=== PATIENT | female | born 1945 | race Caucasian/White ===

== ENCOUNTER 2017-08-11 12:58 | Day surgery (SDC) | payer BC, MEDICARE ==
[2017-08-11 12:21] VITALS: BMI 48.6
[2017-08-11] MEDS ORDERED: Albumin 25% 200 ML ONE (13:41)
[2017-08-11 13:45] LABS: #Basophils 0.1 thou/uL (0.0-0.2); #Eosinphils 0.4 thou/uL (0.0-0.7); #Lymphocytes 1.3 thou/uL (1.20-3.40); #Monocytes 0.7 thou/uL (0.11-0.59); #Neutrophils 4.9 thou/uL (1.40-6.50); %Basophils 0.9 % (0.0-1.0); %Eosinophils 4.9 % (0.0-10.0); %Lymphocytes 17.7 % (21.0-51.0); %Monocytes 9.4 % (0.0-10.0); Hematocrit 26.9 % (36.0-47.0); Mean Platelet Volume 6.6 fL (7.4-10.4); Red Blood Cell (RBC) Count 2.52 mill/uL (4.20-5.40); White Blood Cell (WBC) Count 7.3 thou/uL (4.8-10.8)
[2017-08-11] MEDS ORDERED: FLU VACC TS2017-18 (>65YR) 0.5 ML SYRINGE IM ONE (13:45)
[2017-08-11 13:52] LABS: Prothrombin Time 17.1 SEC (12.0-14.7)
[2017-08-11 13:53] LABS: PTT 35.7 SEC (22.9-36.1)
[2017-08-11 14:02] LABS: Anisocytosis SLIGHT = 6-15 cells (100X) (0-5/hpf); Basophilic Stippling SLIGHT = 1-2 cells (100X) (None Seen); Macrocytosis SLIGHT = 6-15 cells (100X) (0-5/hpf); Polychromasia SLIGHT = 2-3 cells (100X) (0-2/hpf)
[2017-08-11 15:41] VITALS: BP 127/40; TEMP 97.5
--- NOTE | 2017-08-11 15:44 | ULT ---
ULTRASOUND GUIDED PARACENTESIS 08/11/17 COMPARISON: 04/01/17 HISTORY: Symptomatic ascites. FINDINGS: Informed consent obtained prior to the procedure. Preprocedural imaging demonstrates extensive ascite s throughout the abdomen/pelvis. Appropriate pocket is visualized within the right lower quadrant. Sk in overlying this region is prepped and draped in normal sterile fashion and then applied 1% buffered lidocaine. With direct sonographic guidance, a 5 Greek Yueh catheter is advanced into the ascites. Removal of t he stylet yields yellow fluid. 5 liters were removed. The patient tolerated the procedure well. IMPRESSION: Successful ultrasound guided paracentesis yielding 5 liters of yellow fluid. POS: [facility]
== END 2017-08-11 15:30 | disposition home or self-care (01) ==
LOC: ULT 12:58
PROVIDERS: ATTEND Internal Medicine Gastroenterology
PROC: 0W9G3ZX Drainage of Peritoneal Cavity, Percutaneous Approach, Diagnostic (ICD-10-PCS; principal; 2017-08-11)
DX: K74.60 Unspecified cirrhosis of liver (principal); R18.8 Other ascites; I42.9 Cardiomyopathy, unspecified; I10 Essential (primary) hypertension; J44.9 Chronic obstructive pulmonary disease, unspecified; Z79.899 Other long term (current) drug therapy; Z87.891 Personal history of nicotine dependence
CPT/HCPCS: 36415; 49083; 85025; 85610; 85730; P9047

== ENCOUNTER 2017-08-13 05:33 | Inpatient (IN) | payer BC, MEDICARE ==
[2017-08-13 06:06] LABS: #Eosinphils 0.2 thou/uL (0.0-0.7); #Lymphocytes 1.1 thou/uL (1.20-3.40); #Monocytes 0.5 thou/uL (0.11-0.59); #Neutrophils 4.3 thou/uL (1.40-6.50); %Basophils 0.6 % (0.0-1.0); %Eosinophils 3.4 % (0.0-10.0); %Lymphocytes 17.4 % (21.0-51.0); %Monocytes 8.3 % (0.0-10.0); Hematocrit 25.7 % (36.0-47.0); Mean Platelet Volume 7.2 fL (7.4-10.4); White Blood Cell (WBC) Count 6.1 thou/uL (4.8-10.8)
[2017-08-13 06:29] LABS: ALT (SGPT) 11 U/L (8-55); AST (SGOT) 34 U/L (5-34); Alkaline Phosphatase 129 U/L (40-150); Anion Gap 11 mmol/L (10-20); BUN (Urea Nitrogen) 47 mg/dL (9.8-20.1); Bilirubin, Total 2.3 mg/dL (0.2-1.2); Calc. Creatinine Clearance 0 mL/min (70-130); Calcium 8.8 mg/dL (7.8-10.44); Carbon Dioxide 24 mmol/L (23-31); Chloride 107 mmol/L (98-107); Estimated GFR-MDRD 19; Globulin 4.5 g/dL (2.4-3.5); Lipase 41 U/L (8-78); Protein, Total 7.1 g/dL (6.0-8.3)
[2017-08-13] MEDS ORDERED: Ondansetron HCl/PF 4 MG/2 ML Vial ONE (06:42)
[2017-08-13 06:55] LABS: PTT 36.8 SEC (22.9-36.1); Prothrombin Time 17.8 SEC (12.0-14.7)
[2017-08-13 07:07] LABS: Troponin I 0.011 ng/mL (< 0.028)
--- NOTE | 2017-08-13 08:50 | RAD ---
PORTABLE CHEST: Date: 08/13/17 HISTORY: Chest and abdomen pain. Altered mental status. COMPARISON: 01/31/17. FINDINGS: Heart size is borderline. There are atherosclerotic changes of the aorta. Lungs show some chronic luis a nge without focal infiltrates. IMPRESSION: Borderline cardiomegaly with chronic lung change. POS: [facility]
[2017-08-13] MEDS ORDERED: Heparin 1,000 UNITS/ML VIAL ONE (10:00)
[2017-08-13] MEDS ORDERED: Lidocaine 1% (PF) 30 ML VIAL ONE (11:20)
[2017-08-13 11:57] LABS: Bilirubin Negative (Negative); Blood, Urine Negative (Negative); Glucose, Urine (Dipstick) Negative (Negative); Ketone, Urine Negative (Negative); Nitrite Negative (Negative); Protein, Urine (Dipstick) Negative (Neg-Trace)
[2017-08-13] MEDS ORDERED: Morphine 4 MG/ML VIAL ONE (12:22)
[2017-08-13 12:27] LABS: BF Reference Range Comment Note:
[2017-08-13 13:09] LABS: BF Color Yellow
[2017-08-13 13:10] LABS: BF WBC/Nonhematics Ct. - Manua 13 /cumm
--- NOTE | 2017-08-13 13:26 | HP ---
HISTORY OF PRESENT ILLNESS: Mrs. Garcia is a 72 years old woman. She was brought to this [facility] earlier today because of altered mental status, confusion, agitation, and according to her da korihter, everything started about 2:00 a.m. this morning. There is no associated fever, and she claim s that patient has been vomiting since yesterday. She does not have any diarrhea. PAST MEDICAL HISTORY: She is known to have history of cirrhosis of liver secondary to fatty liver de generation. She is also known to have a history of hypertension, COPD. No history of diabetes. No history of heart disease. No history of cerebrovascular accident. PAST SURGICAL HISTORY: Remarkable for hysterectomy. She does not have any known allergies. SOCIAL HISTORY: She is a former smoker. She quit smoking about 4 years ago. There is no history of ETOH abuse. No history of substance abuse. FAMILY HISTORY: Reviewed and is not contributory. HOME MEDICATIONS: Reviewed and include tramadol, Aldactone, lactulose, Lasix. REVIEW OF SYSTEMS: Constitutional: There is no fever. HEENT: There was no prior headache, no ocul ar pain. No sore throat, no rhinorrhea, no earache, no epistaxis. Neck: No neck pain, no neck stif fness. Cardiovascular: No shortness of breath. No chest pain. Pulmonary: No coughing. Gastroint estinal: She has been vomiting since yesterday. There is no diarrhea. There was no abdominal pain. Genitourinary: Urine output has decreased and they mentioned some dysuria. Endocrinology: No hea t or cold intolerance. No polyuria, polydipsia, or polyphagia. Musculoskeletal: No arthralgia, no myalgia. Skin: No rash, no itching. Allergies: No hayfever. Hematology: No abnormal bleeding, n o ecchymosis. Lymphatics: No palpable lymphadenopathy, no painful lymphadenopathy. Psychiatric: N o anxiety, no depression. Neurologic: No seizure, no limb weakness. PHYSICAL EXAMINATION: At the current time, GENERAL: She is alert, responsive, confused, sick looking. VITAL SIGNS: Her latest vital signs show a blood pressure of 102/57, pulse rate 74, respiratory rate 19, temperature 97.3. We have to mention that earlier the patient was hypothermic and she was start ed on hypothermic blanket and also she was hypotensive. HEENT: Her head is normocephalic and atraumatic. Both her pupils are equal and reactive. She has i cteric discoloration of the sclerae. Ears and nose normal. Oral mucosa is moist. Pharyngeal area i s clear. NECK: Supple. There is no distention of the jugular vein. No lymphadenopathy felt. Thyroid gland not palpable. There is no carotid bruit. CHEST: Symmetrical with S1, S2. LUNGS: Clear. ABDOMEN: Somewhat tender to palpation. There is a shift in dullness. We could not appreciate any o rganomegaly. EXTREMITIES: Limbs show no edema. NEUROLOGIC: She moves all extremities. LABORATORY DATA: Chest x-ray was reported to show borderline cardiomegaly with chronic lung changes. CBC showed WBC of 6.1, hemoglobin of 8.1, hematocrit of 25.7, MCV of 107, platelets of 138. PT is 17.8, PTT 36.8. Chemistry and electrolytes show sodium of 137, potassium 5.3, chloride 107, CO2 of 2 4, BUN 47, creatinine 2.45, glucose 112, calcium 8.8, total bilirubin 2.3, AST 34, ALT 11, alkaline p hosphatase 129, ammonia 164, CPK 29, troponin 0.011. BNP 554.1, total protein 7.1, albumin 2.6, glob ulin 4.5, lipase 41. ASSESSMENT AND PLAN: This is a 72 years old woman with history of cirrhosis of the liver se condary to fatty liver, chronic obstructive pulmonary disease. She had paracentesis about 2 days ago . She was brought to this facility, because of confusion, agitation. We have also to mention that w e suspect hepatic encephalopathy. It is possible that the patient may have spontaneous bacterial per itonitis. In view of this case, we will check peritoneal fluid for Gram stain, cell count, and cultu re. We will start her on cefepime and vancomycin. She was noticed to have acute kidney injury. Paul stevenson reported that, in March, her creatinine was 0.8. It is possible that she may have acute tubular n ecrosis associated with low blood pressure. She may also have the hepatorenal syndrome. In any case , we will start her on octreotide, midodrine, and albumin. Nephrology consult was called. We will s tart her on broad-spectrum antibiotics for possible peritonitis. Blood culture and also urine cultur e will be sent. Patient will be admitted to medical ICU. Further evaluation and management will dep end on the course of her hospitalization and her response to therapy.
[2017-08-13] MEDS ORDERED: Albumin 25% 25 GM/100 ML BOT IVPB SCH (13:30)
[2017-08-13 13:37] LABS: #Eosinphils 0.1 thou/uL (0.0-0.7); #Lymphocytes 0.7 thou/uL (1.20-3.40); #Monocytes 0.4 thou/uL (0.11-0.59); %Basophils 0.6 % (0.0-1.0); %Eosinophils 3.3 % (0.0-10.0); %Lymphocytes 17.2 % (21.0-51.0); %Monocytes 8.9 % (0.0-10.0); Hematocrit 23.3 % (36.0-47.0); Mean Platelet Volume 6.8 fL (7.4-10.4); Red Blood Cell (RBC) Count 2.17 mill/uL (4.20-5.40); White Blood Cell (WBC) Count 4.3 thou/uL (4.8-10.8)
[2017-08-13 13:42] LABS: ALT (SGPT) 13 U/L (8-55); AST (SGOT) 40 U/L (5-34); Alkaline Phosphatase 107 U/L (40-150); Anion Gap 14 mmol/L (10-20); BUN (Urea Nitrogen) 49 mg/dL (9.8-20.1); Bilirubin, Total 2.4 mg/dL (0.2-1.2); Calc. Creatinine Clearance 41 mL/min (70-130); Calcium 8.1 mg/dL (7.8-10.44); Carbon Dioxide 21 mmol/L (23-31); Chloride 109 mmol/L (98-107); Estimated GFR-MDRD 22; Globulin 3.9 g/dL (2.4-3.5); Protein, Total 6.2 g/dL (6.0-8.3)
[2017-08-13 13:46] LABS: Prothrombin Time 18.1 SEC (12.0-14.7)
[2017-08-13] MEDS ORDERED: Octreotide Acetate 100 MCG/ML VIAL SC SCH (14:00)
[2017-08-13] MEDS ORDERED: Cefepime 1 GM, Admixture Fee 1 EACH in Sterile Water 10 ML SLOW IVP SCH (14:00)
[2017-08-13 14:55] LABS: Number Cells Counted-Fluids 100
[2017-08-13] MEDS: Midodrine HCl 5 MG TAB PO SCH ×2 (15:24→21:16)
[2017-08-13] MEDS: Sodium Chloride 0.9% 1,000 ML IV SCH ×3 (15:25→22:50)
--- NOTE | 2017-08-13 16:36 | CON ---
DATE OF CONSULTATION: 08/13/2017 HISTORY OF PRESENT ILLNESS: Ms. Garcia is a 72-year-old female who was brought in for acute mental status change. The feeling is that this patient may have hepatic encephalopathy due to her history of cirrhosis as well as elevated ammonia. We are now being consulted for acute kidney injury. Please note that during the last few days, her renal function was noted to be worsening and for that reason, diuretics have been placed on hold in the last couple of days. We are being consulted for further management of this acute kidney injury. REVIEW OF SYSTEMS: Not obtainable since the patient is confused. Per family, history of decreased appetite, decreased energy level. No nausea. No diarrhea. No syncopal episode. Positive for confusion. No fever or chills. No chest pain, no shortness of breath. No headache, no diplopia. No sore throat. HOME MEDICATIONS: Includes Tramadol 50 mg q.8 hours p.r.n., spironolactone 25 mg p.o. b.i.d., Protonix 40 mg daily, lactulose 20 grams p.o. b.i.d. and Lasix 20 mg b.i.d. CURRENT MEDICATIONS: Includes status post vancomycin, normal saline 150 mL per hour, octreotide 100 mcg subcu q.8 hours, midodrine 10 mg p.o. t.i.d., cefepime 1 gram IV q. day and salt poor albumin 25 grams IV q.6 hours. PAST MEDICAL HISTORY: Includes; 1. Cirrhosis secondary to a presumed fatty liver. 2. History of chronic ascites. 3. Hypertension. 4. COPD. PAST SURGICAL HISTORY: 1. Status post hysterectomy. 2. Status post multiple paracentesis. 3. Status post upper and lower GI endoscopy. 4. Status post ? of liver biopsy. SOCIAL HISTORY: The patient lives with her son. Smoked several years ago, but quit about 4 years ago. No alcohol intake, no IV drug abuse. Sedentary lifestyle. Status post ? of blood transfusion. ALLERGIES: The patient has no known drug allergies. TRAUMA: None. IMMUNIZATIONS: Up to date. HOSPITALIZATIONS: Please see past medical history. FAMILY HISTORY: Noncontributory. PHYSICAL EXAMINATION: GENERAL: Patient is awake, confused and disoriented, not in overt distress. VITAL SIGNS: Blood pressure is 73/64, heart rate 74, respiratory rate 22 and temperature 95. SKIN: Adequate turgor. HEENT: Slightly pale conjunctivae, anicteric sclerae. NECK: No neck mass, no carotid bruit, no JVD. CHEST: No deformities. LUNGS: Decreased breath sounds. No wheezing, no crackles. HEART: Normal sinus rhythm. No murmur, no gallops, no rubs. ABDOMEN: Globular, soft and nontender. No masses. Positive for ascites. EXTREMITIES: Trace edema. NEUROLOGIC: Confused and disoriented, but moving all extremities. LABORATORY AND IMAGING DATA: Laboratories of 08/13/2017, White count 4.3, hemoglobin 7.3 and hematocrit 23.3. Sodium 139, potassium 5.2, chloride 109, carbon dioxide 21, BUN 49, creatinine 2.24, calcium 8.1, total bilirubin 2.4, AST 40, ALT 13 and albumin 2.3. Urinalysis on 08/13/2017 benign. On 08/13/2017, chest x-ray shows borderline cardiomegaly with chronic lung changes. ASSESSMENT AND PLAN: 1. Hypotension. Agree with empiric volume repletion. Due to the hypoalbuminemia, we will start patient on salt poor albumin at IV q.6 hours. 2. Anemia. Continue to observe. P.r.n. blood transfusion. 3. Acute kidney injury - this is most likely hemodynamically mediated renal dysfunction with a history of diuretic intake as well as history of cirrhosis. We will change current IV infusion to 25 grams IV q.6 hours for the next 3 days. Agree with normal saline at 150 mL per hour. 4. Mental status change - most likely from hepatic encephalopathy. If no improvement with the renal function and it continues to worsen in spite of volume repletion, we can evoke the possibility of hepatorenal syndrome. Urine sodium and urine creatinine will be ordered. Renal ultrasound will also be ordered. [facility]
--- NOTE | 2017-08-13 17:05 | ULT ---
ULTRASOUND RENAL BILATERAL 08/13/17 HISTORY: Renal failure. COMPARISON: None. FINDINGS: Left kidney measures 10.5 x 5.3 x 5 cm and right kidney measures 8.9 x 3.9 x 4.6 cm. There appears to be moderate volume ascites. No renal mass, hydronephrosis or abnormal calcifications. The urinary bladder not well seen. IMPRESSION: No evidence of obstructive uropathy. Moderate volume ascites. POS: [facility]
[2017-08-13] MEDS: Vancomycin HCl 1 GM in Premix Bag 1 BAG IVPB SCH (17:51)
[2017-08-13] MEDS: Hydrocortisone Sod Succ/PF 100 mg/2 ml Vial IVP SCH ×2 (18:08→23:33)
[2017-08-13] MEDS: Mometasone/Formoterol 120 PUFF INHALER INH SCH (19:08)
[2017-08-13] MEDS ORDERED: Cefepime 1 GM in Sodium Chloride 0.9% 100 ML IVPB SCH (21:00)
[2017-08-13] MEDS: Albumin 25% 25 GM/100 ML BOT IVPB SCH (21:18)
[2017-08-13] MEDS: Famotidine/PF 20 mg/2ml Vial SLOW IVP SCH (21:18)
--- NOTE | 2017-08-13 21:41 | CON ---
DATE OF CONSULTATION: 08/13/2017 CHIEF COMPLAINT: Confusion. HISTORY OF PRESENT ILLNESS: Ms. Garcia is a 72-year-old woman with end-stage liver disease who under went large volume paracentesis on 08/11/2017 with 5 liters removed. She did well initially after aliya t; however, a couple days ago she fell down and has been weaker. She did not hit her head when she f ell. She did vomit once last night. Early this morning, she became confused and her daughters to he r into the emergency room for further care. She was found to be hypotensive and hypothermic with acu te on chronic renal insufficiency. She was given a couple liters of fluid and some lactulose. Curre ntly, she is oriented to her name and denies abdominal pain. She had a diagnostic paracentesis today that was negative for evidence of SBP. She has had no diarrhea, constipation, or blood in the stool . She has had brown stools. She has been admitted to the intermediate care unit. She was hypotensi ve with a blood pressure in the 70s systolic. However, after fluids this is doing better and her blo od pressure was improved to 113 range systolic. PAST MEDICAL HISTORY: End-stage liver disease, likely secondary to LEMUS. Ascites, hepatic encephalo krystian, sleep apnea, hypertension, obesity, hyperlipidemia, COPD. PAST SURGICAL HISTORY: Hysterectomy. FAMILY HISTORY: Negative for GI malignancy. SOCIAL HISTORY: She does have a history of smoking tobacco. No drugs or alcohol. ALLERGIES: No known drug allergies. MEDICATIONS: Prior to admission, nadolol 10 mg every day, Xifaxan 550 mg 2 times a day, spironolacto ne 100 mg 2 tablets daily, furosemide 40 mg daily, lactulose 30 mL twice daily, pantoprazole 40 mg da elva, clonidine, gabapentin. REVIEW OF SYSTEMS: Otherwise unobtainable due to her altered mental status. PHYSICAL EXAMINATION: VITAL SIGNS: Temperature 97.6, pulse 72, blood pressure 108/95. GENERAL: She is in no acute distress. She is oriented to her name and does answer some questions, b ut is intermittently lucid. HEENT: Eyes have no scleral icterus. Oropharynx is clear, without lesions. She is obese. NECK: No cervical or supraclavicular lymphadenopathy. LUNGS: Have bilateral expiratory wheezes. HEART: Regular rate and rhythm. ABDOMEN: Distended, but soft and nontender. Bowel sounds are present. EXTREMITIES: 1+ pitting lower extremity edema. LABORATORY DATA: White blood cell count 4.3, hemoglobin 7.3, platelets 120. INR 1.5. Creatinine 2. 24, bilirubin 2.4, AST 40, ALT 13, alkaline phosphatase is 107, albumin 2.3. Her fluid white blood c ell count was 13. IMPRESSION: 1. Hepatic encephalopathy. I suspect this precipitated by dehydration and acute on chronic renal in sufficiency. 2. End-stage liver disease. She has decompensated with ascites and worsening albumin, increasing IN R, acute renal failure, and increasing bilirubin. 3. Chronic obstructive pulmonary disease and morbid obesity. She has been declined for liver transp lant at [facility] in [place] due to comorbidities. 4. Ascites. She did have a 5 liter paracentesis a couple days ago. She is not dehydrated intravasc ularly and will receive IV fluids and albumin. Fluid studies in the ER now negative for SBP. RECOMMENDATIONS: 1. Lactulose. 2. She is on broad spectrum antibiotics. 3. IV fluids. 4. Follow the trend of her creatinine and LFTs. PLAN: We will continue aggressive supportive care. She does wish to be DO NOT RESUSCITATE status, i f she suffers cardiopulmonary arrest. This was discussed with her daughters. ADDENDUM: The patient has had brown stool. I will discontinue the octreotide as there is no evidence of overt bleeding at this point. I think her encephalopathy is due to dehydration and acute renal failure rat her than acute GI bleed.
[2017-08-13] MEDS ORDERED: Sodium Chloride 0.9% 1,000 ML IV SCH (21:45)
[2017-08-14] MEDS: Albumin 25% 25 GM/100 ML BOT IVPB SCH ×4 (02:48→20:38)
[2017-08-14] MEDS: Sodium Chloride 0.9% 1,000 ML IV SCH ×3 (03:22→20:12)
[2017-08-14] MEDS: Hydrocortisone Sod Succ/PF 100 mg/2 ml Vial IVP SCH ×4 (06:05→23:36)
--- NOTE | 2017-08-14 06:45 | CON ---
DATE OF CONSULTATION: 08/13/2017 HISTORY OF PRESENT ILLNESS: Ms. Kady Garcia is a 71-year-old morbidly obese Latin-[place] femal e who was brought to the hospital with mental status change, abdominal distention, and confusion. She has had recurrent ascites, multiple paracenteses done. In fact, in the last week, she has had 10 liters of fluid removed. One was just done on 5 liters, a week prior to that 5 liters. Rhea leon now is on the MICU, hypertensive and minimally responsive. There are 2 daughters at the bedside who states the patient is a FULL CODE. She has been coughing an d wheezing. She is a former smoker. It appears she has quit smoking several years ago. She has sev ere limitation to activity. She can barely walk even 50 feet with the help of a walker. She is not able to give any additional information at this time. She opens eyes and denies any difficulty breat fermin. PAST MEDICAL HISTORY: Cirrhosis secondary to apparently fatty liver , recurrent ascites, histor y of hypertension, renal disease, and COPD. PAST SURGICAL HISTORY: Hysterectomy and liver biopsy. SOCIAL HISTORY: Former smoker. MEDICATIONS FROM HOME: Includes Catapres 0.1, rifaximin 550 mg once a day, Neurontin 300, Symbicort, ProAir, albuterol, lactulose. REVIEW OF SYSTEMS: Otherwise, difficult to obtain. PHYSICAL EXAMINATION: GENERAL: Awake and responsive. VITAL SIGNS: Blood pressure now is 90/60 on normal saline IV, temperature 97, respirations 18, sats are 97%. CHEST: Bilateral wheezing. CARDIAC: Sinus tachycardia. ABDOMEN: Soft but massive. EXTREMITIES: Edema. NEUROLOGIC: Opens eyes. LABORATORY AND X-RAY FINDINGS: White count 4000, hemoglobin and hematocrit 7 and 23, platelet count 120. Creatinine is 2.24. INR is 4.4. BUN is 49. Albumin 2.3. X-ray shows no acute infiltrates. She had ultrasound done of her kidneys, which shows no obstructive uropathy. Incidentally, ammonia l evel was 164 and a BNP was 551. IMPRESSION: 1. End-stage liver disease, recurrent ascites, large volume, drained multiple times. 2. Hypertension secondary to large volume ascites that was removed. 3. Chronic obstructive pulmonary disease. 4. Renal failure. 5. Cholecystitis. 6. Morbid obesity, probably sleep apnea. PLAN: Restarted nebs. Restarted her home medication. Cortisol level is being ordered. Agree with albumin. Obviously, if blood pressure did not improve, she may require to start on pressors. Once again, as per the family, she is a FULL CODE. She will start on broad-spectrum antibiotics in case she may be septic. We will follow. This is a 45-minute critical care time.
[2017-08-14] MEDS: Mometasone/Formoterol 120 PUFF INHALER INH SCH ×2 (07:10→18:15)
[2017-08-14] MEDS ORDERED: FLU VACC TS2017-18 (>65YR) 0.5 ML SYRINGE IM ONE (09:00)
[2017-08-14 09:54] LABS: Anion Gap 13 mmol/L (10-20); BUN (Urea Nitrogen) 45 mg/dL (9.8-20.1); Calc. Creatinine Clearance 41 mL/min (70-130); Calcium 8.5 mg/dL (7.8-10.44); Carbon Dioxide 20 mmol/L (23-31); Chloride 112 mmol/L (98-107); Estimated GFR-MDRD 22
--- NOTE | 2017-08-14 10:24 | PRG ---
DATE OF SERVICE: 08/14/2017 SUBJECTIVE: This morning, she is much more awake, alert and responsive. She is having profuse diarrhea, but less short of breath. OBJECTIVE: VITAL SIGNS: Blood pressure 103/42, sats are 100%, temperature 98, respirations 18. NEUROLOGICAL: She is much more awake. CHEST: Chest reveals decreased breath sounds, no wheezing. CARDIAC: Normal S1, S2. No gallops. ABDOMEN: Soft, no masses. LABORATORY DATA: No lab was ordered today. IMPRESSION: Hepatic encephalopathy, diarrhea, morbid obesity, probably sleep apnea. PLAN: Ordered lab today. PT, diet, nutrition. We will follow.
[2017-08-14] MEDS: Midodrine HCl 5 MG TAB PO SCH ×3 (10:51→20:13)
--- NOTE | 2017-08-14 11:25 | PDOC.PN ---
- Subjective Encounter Start Date: 08/14/17 Encounter Start Time: 11:20 Subjective: Expresses no complaint. - Objective Resuscitation Status: Resuscitation Status FULL:Full Resuscitation Vital Signs & Weight: Vital Signs (12 hours) Temp Pulse Resp BP Pulse Ox 08/14/17 10:47 75 16 08/14/17 08:00 98 F 82 18 94 L 08/14/17 07:13 74 18 08/14/17 07:08 98.0 F 82 18 103/42 L 100 08/14/17 04:00 97.9 F 75 18 107/57 L 98 08/14/17 03:36 97 08/14/17 03:35 97 08/14/17 00:00 98.1 F 71 18 105/43 L 100 I&O: 08/13/17 08/14/17 08/15/17 06:59 06:59 06:59 Intake Total 3150 Output Total 3 Balance 3147 Result Diagrams: 08/13/17 13:27 08/14/17 09:33 Radiology Reviewed by me: Yes Phys Exam - Physical Examination Constitutional: NAD HEENT: moist MMs Neck: no JVD Respiratory: clear to auscultation bilateral Cardiovascular: RRR Gastrointestinal: soft Musculoskeletal: no edema Neurological: moves all 4 limbs Psychiatric: A&O x 3 Dx/Plan (1) Hepatic encephalopathy Code(s): K72.90 - HEPATIC FAILURE, UNSPECIFIED WITHOUT COMA Status: Acute Comment: resolving. (2) SONYA (acute kidney injury) Code(s): N17.9 - ACUTE KIDNEY FAILURE, UNSPECIFIED Status: Acute Plan: f/u with nephrology.. Comment: improving. (3) Obesity Code(s): E66.9 - OBESITY, UNSPECIFIED Status: Acute (4) Cirrhosis of liver Code(s): K74.60 - UNSPECIFIED CIRRHOSIS OF LIVER Status: Acute - Plan * . Continue current therapy. f/u blood, urine and peritoneal fluid cultures..
--- NOTE | 2017-08-14 12:13 | PRG ---
DATE OF SERVICE: 08/14/2017 SUBJECTIVE: Ms. Garcia is a 72-year-old female who was seen for her acute kidney injury aliya t was secondary to a presumed hemodynamically mediated renal dysfunction. The patient has been start ed on normal saline salt poor albumin. Please note she has underlying cirrhosis secondary to fatty l iver. She has been waited at [facility] in [place] and at that time she was felt not to be a liver transplant candidate. This is due to multiple medical problems. This morning, she is more awake. Please note she came in with decreased mentation and the feeling wa s that this was secondary to hepatic encephalopathy. Her mentation is much improved with lactulose. Renal function is stabilizing at the same time. OBJECTIVE: VITAL SIGNS: Blood pressure is 103/42, heart rate 82, respiratory rate 18, temperature 98, pulse ox 100%. GENERAL: Noted to be awake, alert, comfortable, and obese. SKIN: Adequate turgor. HEENT: Slightly pale conjunctivae, anicteric sclerae. NECK: No neck mass, no carotid bruits, no JVD. CHEST: No deformities. LUNGS: Clear breath sounds. No wheezing. HEART: Normal sinus rhythm. No murmur, no gallops, no rubs. ABDOMEN: Globular, soft, nontender. No masses. EXTREMITIES: Trace edema. MEDICATIONS: 08/14/2017 was reviewed. LABORATORY: 08/13/2007, white count 4.3, hemoglobin 7.3. On 08/14/2007, sodium 140, potassium 5.1, chloride 102, carbon dioxide 20, BUN 45, creatinine 2.25, calcium is 8.5. Urinalysis shows no casts, no pigmented granular casts, specific gravity 1.019. Urine sodium 25, uri ne creatinine 143.35. ASSESSMENT AND PLAN: 1. Acute kidney injury secondary to a hemodynamically mediated renal dysfunction. Continue IV hydra tion, continue normal saline salt poor albumin. We will further. If no significant improvement with the renal function, we can always consider a possible diagnosis of hepatorenal syndrome. I do not t hink she has hepatorenal syndrome. She may simply be chest volume depleted. No indication for any d ialytic intervention. 2. Anemia. Recheck CBC in a.m. 3. Hepatic encephalopathy, much improved with lactulose. 4. Cirrhosis - continue supportive care. Currently, the patient is deemed not a liver transplant ca ndidate. Recheck basic met and CBC in a.m.
[2017-08-14] MEDS: CEFEPIME IVPB SCH (14:43)
[2017-08-14] MEDS: ADMIXTURE FEE IVPB SCH (14:43)
[2017-08-14] MEDS: Vancomycin HCl 1 GM in Premix Bag 1 BAG IVPB SCH (14:44)
[2017-08-14] MEDS: Famotidine/PF 20 mg/2ml Vial SLOW IVP SCH (20:39)
--- NOTE | 2017-08-14 23:28 | PRG ---
GASTROENTEROLOGY PROGRESS NOTE DATE OF SERVICE: 08/14/2017 SUBJECTIVE: Ms. Garcia is much more alert today. OBJECTIVE: VITAL SIGNS: Temperature 97.6, pulse 70 and blood pressure 102/46. GENERAL: She is in no acute distress. She is alert and oriented today. LUNGS: Clear to auscultation bilaterally. HEART: Regular rate and rhythm. ABDOMEN: Soft, nontender and mildly distended. Bowel sounds are present. EXTREMITIES: 1+ pitting lower extremity edema. IMPRESSION: 1. Hepatic encephalopathy, currently improved. This was likely due to dehydration and acute on switchbox assembler noreen renal insufficiency. She is on lactulose. 2. End-stage liver disease, decompensated with ascites and worsening labs. She has been turned down for liver transplant at [facility] in [place] due to comorbidities. 3. Chronic obstructive pulmonary disease. 4. Ascites. She had 5 liters of paracentesis a few days ago. She is currently receiving IV fluids and albumin due to intravascular dehydration. Her fluid studies this hospital stay were negative for SBP. RECOMMENDATIONS: 1. Continue lactulose. 2. Follow the trend of her creatinine and liver function tests.
[2017-08-15] MEDS: Sodium Chloride 0.9% 1,000 ML IV SCH ×2 (02:20→08:06)
[2017-08-15] MEDS: Albumin 25% 25 GM/100 ML BOT IVPB SCH ×4 (02:30→19:41)
[2017-08-15 05:21] LABS: Hematocrit 20.2 % (36.0-47.0); Red Blood Cell (RBC) Count 1.83 mill/uL (4.20-5.40); White Blood Cell (WBC) Count 5.8 thou/uL (4.8-10.8)
[2017-08-15 05:22] LABS: #Lymphocytes 0.4 thou/uL (1.20-3.40); #Monocytes 0.2 thou/uL (0.11-0.59); #Neutrophils 5.1 thou/uL (1.40-6.50); %Basophils 0.1 % (0.0-1.0); %Eosinophils 0.2 % (0.0-10.0); %Lymphocytes 7.2 % (21.0-51.0); Mean Platelet Volume 7.1 fL (7.4-10.4)
[2017-08-15 05:56] LABS: Anion Gap 15 mmol/L (10-20); BUN (Urea Nitrogen) 47 mg/dL (9.8-20.1); Calc. Creatinine Clearance 36 mL/min (70-130); Calcium 8.7 mg/dL (7.8-10.44); Carbon Dioxide 18 mmol/L (23-31); Chloride 113 mmol/L (98-107); Estimated GFR-MDRD 18
[2017-08-15] MEDS: Hydrocortisone Sod Succ/PF 100 mg/2 ml Vial IVP SCH ×4 (05:58→23:50)
[2017-08-15] MEDS: Ondansetron ODT 4 MG TAB PO PRN (06:50)
[2017-08-15] MEDS: Mometasone/Formoterol 120 PUFF INHALER INH SCH ×2 (07:05→19:34)
[2017-08-15] MEDS: Midodrine HCl 5 MG TAB PO SCH ×3 (08:07→19:42)
--- NOTE | 2017-08-15 09:08 | PRG ---
DATE OF SERVICE: 08/15/2017 SUBJECTIVE: This morning she is awake, alert, responsive. Her ammonia level is 27. PHYSICAL EXAMINATION: VITAL SIGNS: Blood pressure 118/64, respirations 29. GENERAL: She is nauseated, but no shortness of breath. CHEST: Chest revealed decreased breath sounds, no wheezing. CARDIAC: Normal S1, S2. ABDOMEN: Massive. White count 5000, H&H 16 and 20, platelet count is 88, creatinine is 2.6, BUN 47. IMPRESSION: 1. Hypotension, resolved. 2. Encephalopathy, improved. 3. Ascites. 4. End-stage liver disease. She will be transferred to medical floor, comfort care. Incidentally her cholesterol level was 9 suggestive of relative adrenal insufficiency. Family to dis cuss about her code status.
--- NOTE | 2017-08-15 09:43 | PRG ---
DATE OF SERVICE: 08/15/2017 SUBJECTIVE: Ms. Garcia is a 72-year-old female who was in acute kidney injury secondary to hemodynamically-mediated dysfunction. She has been treated with normal saline salt poor albumin. Re nal function is slowly improving. Please note this patient has underlying cirrhosis/ascites. This m orning, she is still sleepy. Initially she came in with mental status change which has improved with lactulose. OBJECTIVE: VITAL SIGNS: Blood pressure is 118/64, heart rate 72, respiratory rate 20, and temperature 97.8. GENERAL: Sleepy, but arousable. Not in distress, morbidly obese. SKIN: Adequate turgor. HEENT: Pale conjunctivae, anicteric sclerae. NECK: No neck mass, no carotid bruits, no JVD. CHEST: No deformities. LUNGS: Clear breath sounds. HEART: Normal sinus rhythm. No murmur, no gallops, no rubs. ABDOMEN: Globular, soft, nontender, no masses. EXTREMITIES: No edema, no deformities. MEDICATIONS: 08/15/2017 reviewed. LABORATORY DATA: 08/15/2017, white count 5.8, hemoglobin 6.3, sodium 141, potassium 4.7, chloride 10 3, carbon dioxide 18, BUN 47, creatinine 2.62. ASSESSMENT AND PLAN: 1. Acute kidney injury, fluctuating creatinine. Creatinine is noted at 2.62, which is higher than t he previous last 2 days. Please note, she is currently on salt poor albumin normal saline. My plan is to further optimize her hemodynamics. We will give 2 units of packed RBC with this patient. 2. Cirrhosis - not a surgical candidate, continue supportive care. 3. Hepatic encephalopathy, improved. Status post lactulose. Overall, agree with current management.
[2017-08-15] MEDS ORDERED: Sodium Chloride 0.9% 1,000 ML IV SCH (10:11)
[2017-08-15 14:35] LABS: Vancomycin, Trough 14.1 ug/mL
[2017-08-15] MEDS: ADMIXTURE FEE IVPB SCH (14:59)
[2017-08-15] MEDS: CEFEPIME IVPB SCH (14:59)
[2017-08-15] MEDS: Vancomycin HCl 1 GM in Premix Bag 1 BAG IVPB SCH (15:53)
[2017-08-15] MEDS: Famotidine/PF 20 mg/2ml Vial SLOW IVP SCH (19:41)
--- NOTE | 2017-08-15 20:12 | PRG ---
DATE OF SERVICE: 08/15/2017 SUBJECTIVE: Ms. Garcia was transferred to the floor today. She did not get her morning lactulose; h owever, it sounds like she had multiple bowel movements through the night. She has had no bowel move ments today since being transferred to the floor. She is more confused this afternoon. OBJECTIVE: VITAL SIGNS: Temperature 97.5, pulse 71, blood pressure 131/82. GENERAL: She is in no acute distress. She is oriented to her name, but is more confused this evenin g. LUNGS: Clear to auscultation bilaterally. HEART: Regular rate and rhythm. ABDOMEN: Soft, nontender. Has baseline distention of her abdomen. EXTREMITIES: Plus pitting lower extremity edema. LABORATORY DATA: Hemoglobin is 6.3 today, platelets 88, creatinine 2.62. IMPRESSION: 1. Hepatic encephalopathy. We will continue lactulose. She missed a dose this morning; however, lyly bowden had a dose within last hour. If she remains confused then she can get her 9 o'clock dose early. 2. End-stage liver disease, decompensated, previously turned down for liver transplant based on gerald rbidities. 3. Chronic obstructive pulmonary disease. 4. Ascites. She did have a large volume paracentesis last week. She presented with encephalopathy, largely due to dehydration. She is receiving fluids and albumin, paracentesis was negative for spon taneous bacterial peritonitis. 5. Anemia. She has had no overt blood loss. This could be related to her acute renal failure and n utritional status. RECOMMENDATIONS: 1. Continue lactulose. 2. She is receiving albumin IV. We will continue to follow her renal function. 3. She is receiving transfusion today.
--- NOTE | 2017-08-15 20:43 | PDOC.PN ---
- Subjective Encounter Start Date: 08/15/17 Encounter Start Time: 15:00 Patient seen and examined. No new complaints. No overnight events. On and off confusion. family at bedside. No fever/chills. - Objective Resuscitation Status: Resuscitation Status FULL:Full Resuscitation MAR Reviewed: Yes Vital Signs & Weight: Vital Signs (12 hours) Temp Pulse Pulse Resp BP BP Pulse Ox 08/15/17 19:28 97.3 F L 73 16 140/82 08/15/17 15:50 97.5 F L 75 16 131/82 08/15/17 15:14 71 16 94 L 08/15/17 14:10 97.4 F L 71 16 128/76 94 L 08/15/17 12:20 97.4 F L 77 20 131/78 94 L 08/15/17 12:00 97.4 F L 77 20 94 L 08/15/17 11:00 76 16 Weight Weight 253 lb 6.4 oz I&O: 08/14/17 08/15/17 08/16/17 06:59 06:59 06:59 Intake Total 3150 5330 1590 Output Total 3 450 0 Balance 3147 4880 1590 Result Diagrams: 08/15/17 04:45 08/15/17 21:55 Phys Exam - Physical Examination Constitutional: NAD Respiratory: no wheezing, no rhonchi Dec AE at bases with bibasilar rales Cardiovascular: RRR, no rub Gastrointestinal: soft, positive bowel sounds Distended Musculoskeletal: edema present Neurological: non-focal, moves all 4 limbs Dx/Plan - Plan DVT proph w/SCDs IMPRESSION: 1. Hepatic Encephalopathy/Toxic Metabolic Encephalopathy - on Lactulose 2. SONYA - Nephrology following 3. Anemia - no overt GI bleeding 4. ESLD with Coagulopathy, Hypoalbuminemia and Ascites with recent paracentesis 5. Relative adrenal insufficiency 6. h/o HTN 7. COPD PLAN: * Transfuse 1 unit PRBC * GI/Pulm following * Cont Atbx * AM labs * Monitor for fluid overload * On Stress dose steroids * AM labs Review of Systems - Review of Systems Respiratory: negative: Cough, Dry, Shortness of Breath, Hemoptysis, SOB with Excertion, Pleuritic Pain, Sputum, Wheezing Cardiovascular: negative: Chest Pain, Palpitations, Orthopnea, Paroxysmal Noc. Dyspnea, Edema, Light Headedness - Medications/Allergies Allergies/Adverse Reactions: Allergies Allergy/AdvReac Type Severity Reaction Status Date / Time No Known Allergies Allergy Verified 08/11/17 12:14 Medications: Current Medications Albumin Human (Albumin 25%) 25 gm IVPB 0300,0900,1500,2100 [facility] Stop: 08/16/17 15:01 Last Admin: 08/15/17 19:41 Dose: 25 gm Albuterol/Ipratropium (Duoneb) 3 ml NEB [id number] [facility] Last Admin: 08/15/17 19:35 Dose: Not Given Famotidine (Pepcid) 20 mg SLOW IVP 2100 [facility] Last Admin: 08/15/17 19:41 Dose: 20 mg Hydrocortisone Sodium Succinate (Solu-Cortef) 50 mg IVP Q6HR [facility] Stop: 08/20/17 18:01 Last Admin: 08/15/17 18:21 Dose: 50 mg Cefepime HCl 0.5 gm/ (Miscellaneous Medication) 5 mls @ 60 mls/hr IVPB 1400 [facility] Last Admin: 08/15/17 14:59 Dose: 5 mls Vancomycin HCl 1 gm/ Device 200 mls @ 200 mls/hr IVPB 1500 [facility] Last Admin: 08/15/17 15:53 Dose: 200 mls Ascorbic Acid 1,500 mg/ Sodium (Chloride) 53 mls @ 100 mls/hr IVPB Q6HR [facility] Stop: 08/17/17 12:32 Last Admin: 08/15/17 18:27 Dose: 53 mls Thiamine HCl 200 mg/ Sodium (Chloride) 52 mls @ 100 mls/hr IVPB Q12HR [facility] Stop: 08/17/17 21:01 Last Admin: 08/15/17 20:20 Dose: 52 mls Sodium Chloride (Normal Saline 0.9%) 1,000 mls @ 75 mls/hr IV .[id number] [facility] Last Admin: 08/15/17 11:31 Dose: 1,000 mls Lactulose (Lactulose) 30 gm PO QID [facility] Last Admin: 08/15/17 19:43 Dose: 30 gm Midodrine (Proamatine) 10 mg PO TID [facility] Last Admin: 08/15/17 19:42 Dose: 10 mg Miscellaneous Medication (Pharmacy To Dose) 1 each IVPB .VANCOMYCIN [facility] Mometasone Furoate/Formoterol Fumar (Dulera 200 Mcg/5 Mcg Inhaler) 2 puff INH BID-RT [facility] Last Admin: 08/15/17 19:34 Dose: Not Given Ondansetron HCl (Zofran Odt) 4 mg PO Q6H PRN PRN Reason: Nausea/Vomiting Last Admin: 08/15/17 06:50 Dose: 4 mg Sodium Chloride (Flush - Normal Saline) 10 ml IVF Q12HR [facility] Last Admin: 08/15/17 08:14 Dose: 10 ml Sodium Chloride (Flush - Normal Saline) 10 ml IVF PRN PRN PRN Reason: Saline Flush Last Admin: 08/14/17 23:37 Dose: 10 ml
[2017-08-15 22:19] LABS: Oxyhemoglobin 94.9 % (94.0-97.0); Sodium 146 mmol/L (135-148)
[2017-08-15 22:21] LABS: Modified Allen's Test POSITIVE
[2017-08-15 22:26] LABS: Anion Gap 17 mmol/L (10-20); BUN (Urea Nitrogen) 50 mg/dL (9.8-20.1); Calc. Creatinine Clearance 32 mL/min (70-130); Calcium 9.2 mg/dL (7.8-10.44); Carbon Dioxide 20 mmol/L (23-31); Chloride 112 mmol/L (98-107); Estimated GFR-MDRD 16
[2017-08-15] MEDS ORDERED: Furosemide 40 MG/4 ML VIAL SLOW IVP SCH (22:45)
--- NOTE | 2017-08-15 22:46 | RAD ---
PORTABLE CHEST: History: Fluid overload with shortness of breath. Comparison: 08-13-17 FINDINGS/IMPRESSION: Mild cardiomegaly again noted. Mild vascular engorgement. Hazy infiltrate in the mid and lower lung f ields could represent edema. Small effusions not excluded. Left basilar atelectasis and/or infiltrate not excluded. POS: [facility]
[2017-08-16] MEDS: Albumin 25% 25 GM/100 ML BOT IVPB SCH ×3 (03:54→14:12)
[2017-08-16] MEDS: Hydrocortisone Sod Succ/PF 100 mg/2 ml Vial IVP SCH ×4 (04:50→23:51)
[2017-08-16 06:27] LABS: #Lymphocytes 0.3 thou/uL (1.20-3.40); #Monocytes 0.3 thou/uL (0.11-0.59); #Neutrophils 6.5 thou/uL (1.40-6.50); %Eosinophils 0.2 % (0.0-10.0); %Lymphocytes 3.6 % (21.0-51.0); %Monocytes 4.1 % (0.0-10.0); Hematocrit 24.8 % (36.0-47.0); Mean Platelet Volume 7.4 fL (7.4-10.4); Red Blood Cell (RBC) Count 2.37 mill/uL (4.20-5.40)
[2017-08-16 06:30] LABS: Anion Gap 14 mmol/L (10-20); BUN (Urea Nitrogen) 52 mg/dL (9.8-20.1); Calc. Creatinine Clearance 29 mL/min (70-130); Calcium 9.3 mg/dL (7.8-10.44); Carbon Dioxide 20 mmol/L (23-31); Chloride 115 mmol/L (98-107); Estimated GFR-MDRD 14
[2017-08-16] MEDS: Mometasone/Formoterol 120 PUFF INHALER INH SCH ×2 (06:51→19:59)
[2017-08-16] MEDS: Midodrine HCl 5 MG TAB PO SCH ×3 (08:43→21:14)
[2017-08-16] MEDS ORDERED: Cefdinir 300 MG CAP PO SCH (09:00)
[2017-08-16] MEDS: Cefdinir 300 MG CAP PO SCH (09:40)
--- NOTE | 2017-08-16 12:58 | PRG ---
DATE OF SERVICE: 08/16/2017 SUBJECTIVE: Ms. Garcia is a 72-year-old female who was seen by the renal service for acute kidney injury. Initially, it was felt that this was hemodynamically mediated renal dysfunction. She was given albumin and normal saline. However, during the last few days this has worsened. The poss ibility of hepatorenal syndrome remains with this patient. Please note, this patient currently is no t a liver transplant candidate. She was recently have elevated at [place], [place]. No new comp laints today, still feeling a little bit sleepy. OBJECTIVE: VITAL SIGNS: Blood pressure is noted at 124/60, heart rate 79, respiratory rate 24, pulse ox 95%, te mperature 97.2. GENERAL: Patient is awake, somewhat lethargic, not in overt distress. SKIN: Adequate turgor. HEENT: She has slightly pale conjunctivae, icteric sclerae. NECK: No neck mass, no carotid bruits, no JVD. CHEST: No deformities. LUNGS: Clear breath sounds. No wheezing or crackles. HEART: Normal sinus rhythm. No murmur, no gallops or rubs. ABDOMEN: Globular, soft, nontender, no masses. EXTREMITIES: No edema or deformities. MEDICATIONS: On 08/16/2017, reviewed. LABORATORY DATA: On 08/16/2017, white count 7, hemoglobin is 7.8. Sodium 144, potassium 4.5, chlori de 115, carbon dioxide 20, BUN 52, creatinine 3.28, glucose 117, calcium 9.3. ASSESSMENT AND PLAN: 1. Acute kidney injury - worsening renal dysfunction. Possibility of hepatorenal syndrome remains w ith this patient. For the moment, continue normal saline and salt-poor albumin. Overall, prognosis remains guarded. 2. 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 At the present time, she is not deemed to be a li silver transplant candidate due to multiple comorbid problems. 3. Anemia - p.r.n. blood transfusion. Recheck basic metabolic panel and CBC in a.m.
--- NOTE | 2017-08-16 13:01 | PDOC.PN ---
- Subjective Encounter Start Date: 08/16/17 Encounter Start Time: 09:15 -: old records requested/rev pt is confused, restless - Objective Resuscitation Status: Resuscitation Status FULL:Full Resuscitation MAR Reviewed: Yes Vital Signs & Weight: Vital Signs (12 hours) Temp Pulse Resp BP Pulse Ox 08/16/17 11:13 79 20 92 L 08/16/17 11:11 97.4 F L 83 22 H 148/68 H 93 L 08/16/17 08:00 97.2 F L 79 24 H 124/69 95 08/16/17 06:55 99 08/16/17 06:51 83 16 99 08/16/17 05:00 97.2 F L 84 18 127/78 97 08/16/17 03:16 81 18 98 08/16/17 01:43 97.2 F L 82 20 154/72 H 95 Weight Weight 253 lb 6.4 oz I&O: 08/15/17 08/16/17 08/17/17 06:59 06:59 06:59 Intake Total 5330 2330 Output Total 450 0 Balance 4880 2330 Result Diagrams: 08/16/17 06:00 08/16/17 06:00 Phys Exam - Physical Examination HEENT: PERRLA, moist MMs icterus Neck: no JVD, supple Respiratory: wheezing present Cardiovascular: RRR, no significant murmur, no rub Gastrointestinal: soft, positive bowel sounds ascites+ Musculoskeletal: edema present Neurological: non-focal, normal sensation Lymphatic: no nodes Psychiatric: normal affect Skin: no rash, normal turgor Dx/Plan (1) SONYA (acute kidney injury) Code(s): N17.9 - ACUTE KIDNEY FAILURE, UNSPECIFIED Status: Acute Comment: (2) Ascites Code(s): R18.8 - OTHER ASCITES Status: Acute Qualifiers: Ascites type: other type Qualified Code(s): R18.8 - Other ascites (3) Hepatic encephalopathy Code(s): K72.90 - HEPATIC FAILURE, UNSPECIFIED WITHOUT COMA Status: Acute Comment: (4) Hyponatremia Code(s): E87.1 - HYPO-OSMOLALITY AND HYPONATREMIA Status: Acute (5) Thrombocythemia Status: Acute (6) Chronic low back pain Code(s): M54.5 - LOW BACK PAIN; G89.29 - OTHER CHRONIC PAIN Status: Chronic (7) Hypertension Code(s): I10 - ESSENTIAL (PRIMARY) HYPERTENSION Status: Chronic Qualifiers: Hypertension type: essential hypertension Qualified Code(s): I10 - Essential (primary) hypertension (8) Macrocytic anemia Code(s): D53.9 - NUTRITIONAL ANEMIA, UNSPECIFIED Status: Chronic (9) Non-alcoholic micronodular cirrhosis of liver Code(s): K74.69 - OTHER CIRRHOSIS OF LIVER Status: Chronic (10) Osteoarthritis Code(s): M19.90 - UNSPECIFIED OSTEOARTHRITIS, UNSPECIFIED SITE Status: Chronic Qualifiers: Osteoarthritis location: multiple joints Osteoarthritis type: primary Qualified Code(s): M15.0 - Primary generalized (osteo)arthritis (11) Portal hypertension Code(s): K76.6 - PORTAL HYPERTENSION Status: Chronic (12) Varices, esophageal Code(s): I85.00 - ESOPHAGEAL VARICES WITHOUT BLEEDING Status: Chronic (13) Hepatorenal syndrome Code(s): K76.7 - HEPATORENAL SYNDROME Status: Acute - Plan cont current plan of care, plan discussed w/ family * renal function is still worse * on albumin * nephrology and GI following * prognosis is very poor * medication reviewed as below * symptomatic treatment * discussed test result with family bedside. Review of Systems - Review of Systems Other: not reliable due to encephalopathy - Medications/Allergies Allergies/Adverse Reactions: Allergies Allergy/AdvReac Type Severity Reaction Status Date / Time No Known Allergies Allergy Verified 08/11/17 12:14 Medications: Current Medications Albumin Human (Albumin 25%) 25 gm IVPB 0300,0900,1500,2100 [facility] Stop: 08/16/17 15:01 Last Admin: 08/16/17 08:44 Dose: 25 gm Albuterol/Ipratropium (Duoneb) 3 ml NEB [id number] [facility] Last Admin: 08/16/17 11:13 Dose: 3 ml Albuterol/Ipratropium (Duoneb) 3 ml NEB [id number] PRN PRN Reason: SOB &/or Wheezing Cefdinir (Omnicef) 300 mg PO DAILY [facility] Last Admin: 08/16/17 09:40 Dose: 300 mg Famotidine (Pepcid) 20 mg SLOW IVP 2100 [facility] Last Admin: 08/15/17 19:41 Dose: 20 mg Hydrocortisone Sodium Succinate (Solu-Cortef) 50 mg IVP Q6HR [facility] Stop: 08/20/17 18:01 Last Admin: 08/16/17 12:30 Dose: 50 mg Ascorbic Acid 1,500 mg/ Sodium (Chloride) 53 mls @ 100 mls/hr IVPB Q6HR [facility] Stop: 08/17/17 12:32 Last Admin: 08/16/17 12:30 Dose: 53 mls Thiamine HCl 200 mg/ Sodium (Chloride) 52 mls @ 100 mls/hr IVPB Q12HR [facility] Stop: 08/17/17 21:01 Last Admin: 08/16/17 08:45 Dose: 52 mls Lactulose (Lactulose) 30 gm PO QID [facility] Last Admin: 08/16/17 12:31 Dose: 30 gm Midodrine (Proamatine) 10 mg PO TID [facility] Last Admin: 08/16/17 08:43 Dose: 10 mg Miscellaneous Medication (Pharmacy To Dose) 1 each IVPB .VANCOMYCIN [facility] Mometasone Furoate/Formoterol Fumar (Dulera 200 Mcg/5 Mcg Inhaler) 2 puff INH BID-RT [facility] Last Admin: 08/16/17 06:51 Dose: 2 puff Ondansetron HCl (Zofran Odt) 4 mg PO Q6H PRN PRN Reason: Nausea/Vomiting Last Admin: 08/15/17 06:50 Dose: 4 mg Sodium Chloride (Flush - Normal Saline) 10 ml IVF Q12HR [facility] Last Admin: 08/16/17 08:50 Dose: 10 ml Sodium Chloride (Flush - Normal Saline) 10 ml IVF PRN PRN PRN Reason: Saline Flush Last Admin: 08/14/17 23:37 Dose: 10 ml
--- NOTE | 2017-08-16 16:08 | PRG ---
DATE OF SERVICE: 08/16/2017 SUBJECTIVE: This morning, she is awake and responsive, still nauseated. PHYSICAL EXAMINATION: VITAL SIGNS: Blood pressure is 120/69, sats 98%, respiratory 18, temperature 97. CHEST: Decreased breath sounds without any wheezing. CARDIAC: Normal S1 and S2. No gallops. ABDOMEN: Soft, no masses. LABORATORY DATA: White count 7,000, hemoglobin and hematocrit 7 and 24, platelet count is low. PO2 is 92, pCO2 38, and pH 7.33 yesterday. Creatinine 3.2, BUN 52. IMPRESSION: End-stage liver disease, encephalopathy,henrry, possibly sepsis. Cutback on steroids. Discontinue antibiotics. No evidence of culture. Positive infection. Restart home medication including rifaximin, etc. We will follow. MTDD
--- NOTE | 2017-08-16 16:13 | PRG ---
DATE OF SERVICE: 08/16/2017 SUBJECTIVE: Ms. Garcia is doing much better today than she did last night. She is having 3-4 bowel movements per day and she seems to be more oriented according to family members. She answered my que stions appropriately. OBJECTIVE: VITAL SIGNS: Temperature 97.4, pulse 79, respiratory rate 20, blood pressure 168/94. CHEST: Clear. CARDIOVASCULAR: Regular rate and rhythm. ABDOMEN: Distended, nontender. EXTREMITIES: Showed 2+ edema. LABORATORY DATA: Shows a chloride 115, CO2 of 20, BUN 52, creatinine 3.28, glucose 117. CBC shows a white blood cell count of 7.0, hemoglobin 7.8, hematocrit 24.8, platelet count is 70,000. ASSESSMENT: 1. End-stage liver disease - not a transplant candidate. 2. Hepatic encephalopathy - improved. 3. Acute renal failure - hepatorenal versus prerenal azotemia. 4. Anemia - improved after transfusion. 5. Ascites. RECOMMENDATIONS: 1. Continue lactulose. 2. Continue albumin. 3. Repeat renal functions in a.m. 4. Patient not quite ready for hospice care at this time.
[2017-08-16] MEDS: Famotidine/PF 20 mg/2ml Vial SLOW IVP SCH (21:14)
[2017-08-17 05:08] LABS: #Basophils 0.1 thou/uL (0.0-0.2); #Lymphocytes 0.2 thou/uL (1.20-3.40); #Monocytes 0.2 thou/uL (0.11-0.59); #Neutrophils 4.2 thou/uL (1.40-6.50); %Basophils 1.2 % (0.0-1.0); %Eosinophils 0.4 % (0.0-10.0); %Lymphocytes 4.2 % (21.0-51.0); %Monocytes 4.1 % (0.0-10.0); Hematocrit 25.9 % (36.0-47.0); Mean Platelet Volume 7.9 fL (7.4-10.4); Red Blood Cell (RBC) Count 2.46 mill/uL (4.20-5.40); White Blood Cell (WBC) Count 4.7 thou/uL (4.8-10.8)
[2017-08-17] MEDS: Hydrocortisone Sod Succ/PF 100 mg/2 ml Vial IVP SCH ×4 (05:20→23:45)
[2017-08-17 05:30] LABS: Anion Gap 20 mmol/L (10-20); BUN (Urea Nitrogen) 55 mg/dL (9.8-20.1); Calc. Creatinine Clearance 25 mL/min (70-130); Calcium 9.5 mg/dL (7.8-10.44); Carbon Dioxide 16 mmol/L (23-31); Chloride 113 mmol/L (98-107); Estimated GFR-MDRD 12
[2017-08-17] MEDS: Mometasone/Formoterol 120 PUFF INHALER INH SCH ×2 (07:09→19:16)
[2017-08-17] MEDS: Cefdinir 300 MG CAP PO SCH (08:30)
[2017-08-17] MEDS: Midodrine HCl 5 MG TAB PO SCH ×3 (08:31→20:51)
--- NOTE | 2017-08-17 09:53 | PRG ---
DATE OF SERVICE: 08/17/2017 RENAL MEDICINE SUBJECTIVE: Ms. Garcia is a 72-year-old female who was admitted for hepatic encephalopathy. Mentation is much improved with lactulose. She was also seen by the Renal Service for acute kidney injury. Initially we felt that it was all hemodynamically mediated renal dysfunction. However, creatinine did not really stabilize in spite of volume repletion and patient receiving crystalloids and colloids. Renal function continues to worsen. The urinalysis did not suggest acute tubular necrosis. However, renal function continues to worsen. This is in spite of volume repletion. The possibility of hepatorenal syndrome remains with this patient. Today, no new complaints. She is actually eating better today. PHYSICAL EXAMINATION: VITAL SIGNS: Blood pressure is 149/80, heart rate 87, respiratory rate 22, temperature 97.3, and pulse ox 93%. GENERAL: Awake, alert, sitting comfortable, not in distress, obese. SKIN: Adequate turgor. HEENT: She has slightly pale conjunctivae, anicteric sclerae. NECK: No neck mass, no carotid bruits, no JVD. CHEST: No deformities. LUNGS: Clear breath sounds. HEART: Normal sinus rhythm. No murmur, no gallops, no rubs. ABDOMEN: Globular, soft, nontender. EXTREMITIES: No edema, no deformities. Positive for ascites. MEDICATIONS: Medications of 08/17/2017 was reviewed. LABORATORY DATA: Laboratories of 08/17/2017; white count 4.7, hemoglobin 7.9, sodium 144, potassium 4.6, chloride 116, carbon dioxide 16, BUN is 55, creatinine 3.82, glucose 114, and calcium 9.5. ASSESSMENT AND PLAN: 1. Acute kidney injury - worsening renal dysfunction. Possibility of hepatorenal syndrome remains vs ATN. Creatinine is now noted at 3.82 with glomerular filtration rate of 12 mL per minute. The patient noted to also have metabolic acidosis, consider sodium bicarbonate tablets. 2. Cirrhosis - patient is not a surgical candidate at the present time for transplant. Continue supportive care. 3. Hepatic encephalopathy, much improved. Patient is mentating better. Recheck basic metabolic panel and CBC in a.m. MTDD
--- NOTE | 2017-08-17 12:12 | PRG ---
DATE OF SERVICE: 08/17/2017 SUBJECTIVE: The patient is feeling fine. She is having bowel movements. She is having no abdominal pain, no nausea, or vomiting. OBJECTIVE: VITAL SIGNS: Temperature 97.3, pulse 87, respiratory rate 22, and blood pressure 149/80. CHEST: Clear. CARDIOVASCULAR: Regular rate and rhythm. ABDOMEN: Distended, somewhat tense. EXTREMITIES: Show bilateral edema. LABORATORY DATA: Shows a white blood cell count 4.7, hemoglobin 7.9, hematocrit 25.9. Chemistries s how a BUN of 55, creatinine 3.82. ASSESSMENT: 1. Acute renal failure - this is progressive and possibly secondary to hepatorenal syndrome. I woul d not deem her a dialysis candidate considering she is not a liver transplant candidate. 2. End-stage liver disease. 3. Hepatic encephalopathy - resolved. RECOMMENDATIONS: 1. Continue to monitor and treat renal dysfunction. 2. P.r.n. paracentesis for comfort. 3. Dr. Will covering the weekend.
--- NOTE | 2017-08-17 12:34 | PDOC.PN ---
- Subjective Encounter Start Date: 08/17/17 Encounter Start Time: 09:50 Patient seen and examined. No new complaints. No overnight events, had BM yesterday, no dyspnea - Objective Resuscitation Status: Resuscitation Status FULL:Full Resuscitation MAR Reviewed: Yes Vital Signs & Weight: Vital Signs (12 hours) Temp Pulse Resp BP Pulse Ox 08/17/17 10:51 80 16 08/17/17 08:00 97.3 F L 87 22 H 93 L 08/17/17 07:59 97.3 F L 87 22 H 149/80 H 93 L 08/17/17 07:11 80 18 08/17/17 04:59 98.1 F 82 18 148/78 H 92 L 08/17/17 03:26 94 L 08/17/17 01:55 90 16 94 L Weight Weight 253 lb 6.4 oz I&O: 08/16/17 08/17/17 08/18/17 06:59 06:59 06:59 Intake Total 2330 2130 Output Total 0 6 Balance 2330 2124 Result Diagrams: 08/17/17 04:45 08/17/17 04:45 Phys Exam - Physical Examination Constitutional: NAD lethargic HEENT: PERRLA, moist MMs icterus+ Neck: no JVD, supple Respiratory: no wheezing, no rales, no rhonchi Cardiovascular: RRR, no significant murmur, no rub Gastrointestinal: soft, non-tender, positive bowel sounds ascites+ Musculoskeletal: pulses present, edema present Neurological: non-focal, normal sensation Lymphatic: no nodes Psychiatric: normal affect Skin: no rash, normal turgor Dx/Plan (1) SONYA (acute kidney injury) Code(s): N17.9 - ACUTE KIDNEY FAILURE, UNSPECIFIED Status: Acute Comment: (2) Ascites Code(s): R18.8 - OTHER ASCITES Status: Acute Qualifiers: Ascites type: other type Qualified Code(s): R18.8 - Other ascites (3) Hepatic encephalopathy Code(s): K72.90 - HEPATIC FAILURE, UNSPECIFIED WITHOUT COMA Status: Acute Comment: (4) Hyponatremia Code(s): E87.1 - HYPO-OSMOLALITY AND HYPONATREMIA Status: Acute (5) Thrombocythemia Status: Acute (6) Chronic low back pain Code(s): M54.5 - LOW BACK PAIN; G89.29 - OTHER CHRONIC PAIN Status: Chronic (7) Hypertension Code(s): I10 - ESSENTIAL (PRIMARY) HYPERTENSION Status: Chronic Qualifiers: Hypertension type: essential hypertension Qualified Code(s): I10 - Essential (primary) hypertension (8) Macrocytic anemia Code(s): D53.9 - NUTRITIONAL ANEMIA, UNSPECIFIED Status: Chronic (9) Non-alcoholic micronodular cirrhosis of liver Code(s): K74.69 - OTHER CIRRHOSIS OF LIVER Status: Chronic (10) Osteoarthritis Code(s): M19.90 - UNSPECIFIED OSTEOARTHRITIS, UNSPECIFIED SITE Status: Chronic Qualifiers: Osteoarthritis location: multiple joints Osteoarthritis type: primary Qualified Code(s): M15.0 - Primary generalized (osteo)arthritis (11) Portal hypertension Code(s): K76.6 - PORTAL HYPERTENSION Status: Chronic (12) Varices, esophageal Code(s): I85.00 - ESOPHAGEAL VARICES WITHOUT BLEEDING Status: Chronic (13) Hepatorenal syndrome Code(s): K76.7 - HEPATORENAL SYNDROME Status: Acute (14) Normal anion gap metabolic acidosis Code(s): E87.2 - ACIDOSIS Status: Acute (15) Morbid obesity with BMI of 40.0-44.9, adult Code(s): E66.01 - MORBID (SEVERE) OBESITY DUE TO EXCESS CALORIES; Z68.41 - BODY MASS INDEX (BMI) 40.0-44.9, ADULT Status: Chronic - Plan cont current plan of care, plan discussed w/ family * renal function still getting worse * will add sodium bicarbonate * medication reviewed as below * symptomatic treatment * prognosis is poor * will repeat labs tomorrow. Review of Systems - Review of Systems Other: not reliable due to lethargy - Medications/Allergies Allergies/Adverse Reactions: Allergies Allergy/AdvReac Type Severity Reaction Status Date / Time No Known Allergies Allergy Verified 08/11/17 12:14 Medications: Current Medications Albuterol/Ipratropium (Duoneb) 3 ml NEB [id number] [facility] Last Admin: 08/17/17 10:51 Dose: 3 ml Albuterol/Ipratropium (Duoneb) 3 ml NEB [id number] PRN PRN Reason: SOB &/or Wheezing Cefdinir (Omnicef) 300 mg PO DAILY [facility] Last Admin: 08/17/17 08:30 Dose: 300 mg Famotidine (Pepcid) 20 mg SLOW IVP 2100 [facility] Last Admin: 08/16/17 21:14 Dose: 20 mg Hydrocortisone Sodium Succinate (Solu-Cortef) 50 mg IVP Q6HR [facility] Stop: 08/20/17 18:01 Last Admin: 08/17/17 05:20 Dose: 50 mg Thiamine HCl 200 mg/ Sodium (Chloride) 52 mls @ 100 mls/hr IVPB Q12HR [facility] Stop: 08/17/17 21:01 Last Admin: 08/17/17 08:29 Dose: 52 mls Lactulose (Lactulose) 30 gm PO QID [facility] Last Admin: 08/17/17 08:30 Dose: 30 gm Midodrine (Proamatine) 10 mg PO TID [facility] Last Admin: 08/17/17 08:31 Dose: Not Given Mometasone Furoate/Formoterol Fumar (Dulera 200 Mcg/5 Mcg Inhaler) 2 puff INH BID-RT [facility] Last Admin: 08/17/17 07:09 Dose: 2 puff Ondansetron HCl (Zofran Odt) 4 mg PO Q6H PRN PRN Reason: Nausea/Vomiting Last Admin: 08/15/17 06:50 Dose: 4 mg Sodium Bicarbonate (Bicarbonate, Sodium) 650 mg PO BID [facility] Sodium Chloride (Flush - Normal Saline) 10 ml IVF Q12HR [facility] Last Admin: 08/17/17 08:31 Dose: 10 ml Sodium Chloride (Flush - Normal Saline) 10 ml IVF PRN PRN PRN Reason: Saline Flush Last Admin: 08/14/17 23:37 Dose: 10 ml
[2017-08-17] MEDS: Famotidine/PF 20 mg/2ml Vial SLOW IVP SCH (20:23)
[2017-08-17] MEDS: Sodium Bicarbonate Tab 325 MG TAB PO SCH (20:25)
--- NOTE | 2017-08-17 21:11 | PRG ---
DATE OF SERVICE: 08/17/2017 SUBJECTIVE: She is better, less short of breath. OBJECTIVE: VITAL SIGNS: Sats 90% on 2 liters, temperature 97, blood pressure 140/80. GENERAL: Morbidly obese. CHEST: Decreased breath sounds without any wheezing. CARDIAC: Normal S1 and S2. No gallops. ABDOMEN: Soft, no masses. LABORATORY: White count 4.7, platelet count is low at 67. Creatinine is 3.82. IMPRESSION: 1. Respiratory failure. 2. Encephalopathy. 3. End-stage liver disease. 4. Renal failure. From the pulmonary standpoint of view, she would benefit from outpatient sleep study. Encouraged to lose weight. Will follow at a distance. Call as needed.
[2017-08-18 04:58] LABS: Prothrombin Time 20.1 SEC (12.0-14.7)
[2017-08-18 05:17] LABS: ALT (SGPT) 17 U/L (8-55); AST (SGOT) 29 U/L (5-34); Alkaline Phosphatase 107 U/L (40-150); Anion Gap 17 mmol/L (10-20); BUN (Urea Nitrogen) 58 mg/dL (9.8-20.1); Bilirubin, Total 1.9 mg/dL (0.2-1.2); Calc. Creatinine Clearance 22 mL/min (70-130); Calcium 9.4 mg/dL (7.8-10.44); Carbon Dioxide 18 mmol/L (23-31); Chloride 111 mmol/L (98-107); Estimated GFR-MDRD 10; Globulin 2.9 g/dL (2.4-3.5); Magnesium 2.9 mg/dL (1.6-2.6); Phosphorus 5.8 mg/dL (2.3-4.7); Protein, Total 7.1 g/dL (6.0-8.3)
[2017-08-18 05:19] LABS: #Lymphocytes 0.3 thou/uL (1.20-3.40); #Monocytes 0.3 thou/uL (0.11-0.59); #Neutrophils 4.8 thou/uL (1.40-6.50); %Eosinophils 0.4 % (0.0-10.0); %Lymphocytes 4.7 % (21.0-51.0); Hematocrit 26.4 % (36.0-47.0); Mean Platelet Volume 8.2 fL (7.4-10.4); White Blood Cell (WBC) Count 5.4 thou/uL (4.8-10.8)
[2017-08-18] MEDS: Hydrocortisone Sod Succ/PF 100 mg/2 ml Vial IVP SCH (05:36)
[2017-08-18] MEDS: Mometasone/Formoterol 120 PUFF INHALER INH SCH ×2 (06:38→18:47)
[2017-08-18] MEDS ORDERED: cefTRIAXone\\ROCEPHIN 1 GM in Sodium Chloride 0.9% 100 ML IVPB SCH (09:00)
[2017-08-18] MEDS: Multivitamin W/ Minerals 1 TAB PO SCH (09:37)
[2017-08-18] MEDS: Cyanocobalamin (Vitamin B-12) 1,000 MCG TAB PO SCH (09:37)
[2017-08-18] MEDS: Folic Acid 1 MG TAB PO SCH (09:37)
[2017-08-18] MEDS: Sodium Bicarbonate Tab 325 MG TAB PO SCH ×2 (09:37→20:10)
[2017-08-18] MEDS: Midodrine HCl 5 MG TAB PO SCH ×3 (09:37→20:06)
[2017-08-18] MEDS: Pantoprazole 40 MG VIAL IVP SCH (09:38)
[2017-08-18] MEDS: cefTRIAXone\\ROCEPHIN 1 GM, Syringe 0.4 ML in Sterile Water 9.6 ML SLOW IVP SCH (11:07)
--- NOTE | 2017-08-18 11:18 | RAD ---
PORTABLE AP CHEST: Date: 08/18/17 HISTORY: Dyspnea and shortness of breath. COMPARISON: 01/31/17. FINDINGS: Cardiac silhouette is magnified by projection. There are small bilateral pleural effusions noted on t andrew's examination with associated atelectasis present. The hazy density seen in each lung base on e prior study are not visualized. Pulmonary vasculature is within normal limits. Linear densities in the lateral left mid lung zone may be related to areas of mild scarring, which were also present on t he prior exam. IMPRESSION: Small bilateral pleural effusions and associated atelectasis. POS: [facility]
--- NOTE | 2017-08-18 11:29 | PDOC.PN ---
- Subjective Encounter Start Date: 08/18/17 Encounter Start Time: 08:40 Patient seen and examined. No overnight events, states she has diarrhoea - Objective Resuscitation Status: Resuscitation Status FULL:Full Resuscitation MAR Reviewed: Yes Vital Signs & Weight: Vital Signs (12 hours) Temp Pulse Resp BP Pulse Ox 08/18/17 10:35 85 16 95 08/18/17 08:00 97.7 F 92 18 121/73 94 L 08/18/17 06:38 89 18 94 L 08/18/17 03:39 95 08/18/17 03:21 16 Weight Weight 253 lb 6.4 oz I&O: 08/17/17 08/18/17 08/19/17 06:59 06:59 06:59 Intake Total 2130 300 Output Total 6 Balance 2124 300 Result Diagrams: 08/18/17 04:00 08/18/17 04:00 Radiology Reviewed by me: Yes (chest xray) Phys Exam - Physical Examination Constitutional: NAD HEENT: PERRLA, moist MMs, sclera anicteric Neck: no JVD, supple Respiratory: no wheezing, no rales, no rhonchi reduced air entry at base Cardiovascular: RRR, no significant murmur, no rub Gastrointestinal: soft, positive bowel sounds ascites+ obesity+ Musculoskeletal: pulses present, edema present Neurological: non-focal, normal sensation Lymphatic: no nodes Psychiatric: normal affect, A&O x 3 Skin: no rash, normal turgor Dx/Plan (1) SONYA (acute kidney injury) Code(s): N17.9 - ACUTE KIDNEY FAILURE, UNSPECIFIED Status: Acute Comment: (2) Ascites Code(s): R18.8 - OTHER ASCITES Status: Acute Qualifiers: Ascites type: other type Qualified Code(s): R18.8 - Other ascites (3) Hepatic encephalopathy Code(s): K72.90 - HEPATIC FAILURE, UNSPECIFIED WITHOUT COMA Status: Acute Comment: (4) Hyponatremia Code(s): E87.1 - HYPO-OSMOLALITY AND HYPONATREMIA Status: Acute (5) Thrombocythemia Status: Acute (6) Chronic low back pain Code(s): M54.5 - LOW BACK PAIN; G89.29 - OTHER CHRONIC PAIN Status: Chronic (7) Hypertension Code(s): I10 - ESSENTIAL (PRIMARY) HYPERTENSION Status: Chronic Qualifiers: Hypertension type: essential hypertension Qualified Code(s): I10 - Essential (primary) hypertension (8) Macrocytic anemia Code(s): D53.9 - NUTRITIONAL ANEMIA, UNSPECIFIED Status: Chronic (9) Non-alcoholic micronodular cirrhosis of liver Code(s): K74.69 - OTHER CIRRHOSIS OF LIVER Status: Chronic (10) Osteoarthritis Code(s): M19.90 - UNSPECIFIED OSTEOARTHRITIS, UNSPECIFIED SITE Status: Chronic Qualifiers: Osteoarthritis location: multiple joints Osteoarthritis type: primary Qualified Code(s): M15.0 - Primary generalized (osteo)arthritis (11) Portal hypertension Code(s): K76.6 - PORTAL HYPERTENSION Status: Chronic (12) Varices, esophageal Code(s): I85.00 - ESOPHAGEAL VARICES WITHOUT BLEEDING Status: Chronic (13) Hepatorenal syndrome Code(s): K76.7 - HEPATORENAL SYNDROME Status: Acute (14) Normal anion gap metabolic acidosis Code(s): E87.2 - ACIDOSIS Status: Acute (15) Morbid obesity with BMI of 40.0-44.9, adult Code(s): E66.01 - MORBID (SEVERE) OBESITY DUE TO EXCESS CALORIES; Z68.41 - BODY MASS INDEX (BMI) 40.0-44.9, ADULT Status: Chronic - Plan cont current plan of care, plan discussed w/ family, continue antibiotics * will change to rocephin daily * will reduce lactulose * discussed with nephrology, will monitor for renal function * she is overall stable and does not have absolute indication for dialysis at this point but may be she will need it * renal function is still on peak phase * medication reviewed as below * symptomatic treatment. Review of Systems - Review of Systems Eyes: negative: Pain, Vision Change, Conjunctivae Inflammation, Eyelid Inflammation, Redness, Other ENT: negative: Ear Pain, Ear Discharge, Nose Pain, Nose Discharge, Nose Congestion, Mouth Pain, Mouth Swelling, Throat Pain, Throat Swelling, Other Respiratory: negative: Cough, Dry, Shortness of Breath, Hemoptysis, SOB with Excertion, Pleuritic Pain, Sputum, Wheezing Cardiovascular: negative: Chest Pain, Palpitations, Orthopnea, Paroxysmal Noc. Dyspnea, Edema, Light Headedness, Other Gastrointestinal: Diarrhea. negative: Nausea, Vomiting, Abdominal Pain, Constipation, Melena, Hematochezia, Other Genitourinary: negative: Dysuria, Frequency, Incontinence, Hematuria, Retention , Other Musculoskeletal: negative: Neck Pain, Shoulder Pain, Arm Pain, Back Pain, Hand Pain, Leg Pain, Foot Pain, Other Skin: negative: Rash, Lesions, [place], Bruising, Other - Medications/Allergies Allergies/Adverse Reactions: Allergies Allergy/AdvReac Type Severity Reaction Status Date / Time No Known Allergies Allergy Verified 08/11/17 12:14 Medications: Current Medications Albuterol/Ipratropium (Duoneb) 3 ml NEB [id number] [facility] Last Admin: 08/18/17 10:35 Dose: 3 ml Albuterol/Ipratropium (Duoneb) 3 ml NEB [id number] PRN PRN Reason: SOB &/or Wheezing Cyanocobalamin (Vitamin B-12) 1,000 mcg PO DAILY [facility] Last Admin: 08/18/17 09:37 Dose: 1,000 mcg Ferrous Sulfate (Feosol) 325 mg PO QAM-F [facility] Folic Acid (Folvite) 1 mg PO DAILY [facility] Last Admin: 08/18/17 09:37 Dose: 1 mg Ceftriaxone Sodium 1 gm/ (Syringe 0.4 ml/ Sterile Water) 10 mls @ 120 mls/hr SLOW IVP 1000 [facility] Last Admin: 08/18/17 11:07 Dose: 10 mls Iron/Minerals/Multivitamins (Theragran M) 1 tab PO DAILY [facility] Last Admin: 08/18/17 09:37 Dose: 1 tab Lactulose (Lactulose) 30 gm PO QID [facility] Last Admin: 08/18/17 09:39 Dose: 30 gm Methylprednisolone Sodium Succinate (Solu-Medrol) 20 mg IVP Q8HR [facility] Midodrine (Proamatine) 10 mg PO TID [facility] Last Admin: 08/18/17 09:37 Dose: Not Given Mometasone Furoate/Formoterol Fumar (Dulera 200 Mcg/5 Mcg Inhaler) 2 puff INH BID-RT [facility] Last Admin: 08/18/17 06:38 Dose: 2 puff Ondansetron HCl (Zofran Odt) 4 mg PO Q6H PRN PRN Reason: Nausea/Vomiting Last Admin: 08/15/17 06:50 Dose: 4 mg Pantoprazole Sodium (Protonix) 40 mg IVP DAILY [facility] Last Admin: 08/18/17 09:38 Dose: 40 mg Sodium Bicarbonate (Bicarbonate, Sodium) 650 mg PO BID [facility] Last Admin: 08/18/17 09:37 Dose: 650 mg Sodium Chloride (Flush - Normal Saline) 10 ml IVF Q12HR [facility] Last Admin: 08/18/17 09:38 Dose: 10 ml Sodium Chloride (Flush - Normal Saline) 10 ml IVF PRN PRN PRN Reason: Saline Flush Last Admin: 08/14/17 23:37 Dose: 10 ml Thiamine HCl (Thiamine) 100 mg PO DAILY [facility] Last Admin: 08/18/17 09:37 Dose: 100 mg
--- NOTE | 2017-08-18 11:32 | PRG ---
DATE OF SERVICE: 08/18/2017 SERVICE: Renal medicine. SUBJECTIVE: Ms. Garcia is a 72-year-old female who was seen for her acute kidney injury. S he has underlying cirrhosis. Initially we felt that the acute kidney injury could have been hemodyna mically mediated renal dysfunction. She was given colloid and crystalloid. However, in spite of thi s maneuver, the patient's renal function continues to remain unimproved. The differential now includ es hepatorenal syndrome versus acute tubular necrosis. Management of this entities is essentially aguilera pportive. No new complaints today. The patient states that she is feeling better. OBJECTIVE: VITAL SIGNS: Blood pressure 121/73, heart rate 92, respiratory rate 18, temperature 97.7, pulse ox 9 4%. GENERAL: Noted to be awake, alert, comfortable, not in distress. SKIN: Adequate turgor. HEENT: She has slightly pale conjunctivae, anicteric sclerae. NECK: No neck mass, no carotid bruits, no JVD. CHEST: No deformities. LUNGS: Decreased breath sounds. No wheezing, no crackles. HEART: Normal sinus rhythm. No murmur, no gallops, no rubs. ABDOMEN: Globular, soft, nontender, no masses. EXTREMITIES: No edema. MEDICATIONS: On 08/18/2017 reviewed. LABORATORY DATA: On 08/18/2017, white count 5.4, hemoglobin 8.3. Sodium 141, potassium 4.7, chlorid e 111, carbon dioxide 18, BUN 58, creatinine 4.25, GFR 10 mL per minute, magnesium 2.9, phosphorus 5. 8. ASSESSMENT AND PLAN: 1. Acute kidney injury - No response with colloid and crystalloid infusion. Possibility of acute tu bular necrosis versus hepatorenal syndrome remains. Continue supportive care. Clinically, the patie nt is not uremic. There is no indication for any dialytic intervention at the present time. 2. Metabolic acidosis. Patient has been started sodium bicarbonate. 3. Cirrhosis, patient currently not deemed to be a liver transplant candidate. Please note medications for 08/18/2017, was reviewed. Continue supportive care.
--- NOTE | 2017-08-18 14:12 | PRG ---
DATE OF SERVICE: 08/18/2017 SUBJECTIVE: Ms. Garcia is feeling pretty well today. She is tolerating her diet. No significant ab dominal pain. Mental status has been pretty good per her and her family. Creatinine continues to cl imb. OBJECTIVE: VITAL SIGNS: Temperature 97.7, pulse 85, blood pressure 121/73, and 95% oxygen saturation on room ai r. GENERAL: No acute distress. MENTAL: Alert and oriented, pleasant and conversational. HEART: Regular rate and rhythm. LUNGS: Clear to auscultation bilaterally. ABDOMEN: Mild distention, nontender to palpation. EXTREMITIES: No peripheral edema. LABORATORY STUDIES: WBC 5.4, hemoglobin 8.3, platelets 65. INR 1.7. Sodium 141, potassium 4.7, BUN 58, creatinine up to 4.25. ASSESSMENT AND PLAN: 1. Hepatic encephalopathy, essentially resolved, stable. Continue with lactulose. Titrate to 2-3 l oose bowel movements per day. 2. End-stage liver disease, not a transplant candidate. 3. Acute renal failure, appreciate Nephrology's assistance. Unfortunately, creatinine continues to climb, this is still thought to represent hepatorenal syndrome versus more hopefully acute tubular ne crosis. Continue with supportive care.
[2017-08-19 05:42] LABS: Anion Gap 16 mmol/L (10-20); BUN (Urea Nitrogen) 64 mg/dL (9.8-20.1); BUN/Creatinine Ratio 13.47; Calc. Creatinine Clearance 20 mL/min (70-130); Calcium 9.1 mg/dL (7.8-10.44); Carbon Dioxide 18 mmol/L (23-31); Chloride 110 mmol/L (98-107); Estimated GFR-MDRD 9; Phosphorus 5.8 mg/dL (2.3-4.7)
[2017-08-19 05:44] LABS: #Lymphocytes 0.1 thou/uL (1.20-3.40); #Monocytes 0.2 thou/uL (0.11-0.59); #Neutrophils 3.6 thou/uL (1.40-6.50); %Basophils 0.5 % (0.0-1.0); %Eosinophils 0.2 % (0.0-10.0); %Lymphocytes 3.3 % (21.0-51.0); %Monocytes 4.3 % (0.0-10.0); Hematocrit 25.8 % (36.0-47.0); Mean Platelet Volume 8.5 fL (7.4-10.4); Red Blood Cell (RBC) Count 2.44 mill/uL (4.20-5.40); White Blood Cell (WBC) Count 3.9 thou/uL (4.8-10.8)
[2017-08-19] MEDS: Mometasone/Formoterol 120 PUFF INHALER INH SCH ×2 (06:24→23:25)
[2017-08-19] MEDS: Multivitamin W/ Minerals 1 TAB PO SCH (09:10)
[2017-08-19] MEDS: Sodium Bicarbonate Tab 325 MG TAB PO SCH ×2 (09:11→22:13)
[2017-08-19] MEDS: Folic Acid 1 MG TAB PO SCH (09:11)
[2017-08-19] MEDS: Midodrine HCl 5 MG TAB PO SCH ×3 (09:11→22:13)
[2017-08-19] MEDS: Cyanocobalamin (Vitamin B-12) 1,000 MCG TAB PO SCH (09:11)
[2017-08-19] MEDS: Pantoprazole 40 MG VIAL IVP SCH (09:11)
[2017-08-19] MEDS: Ferrous Sulfate 325 MG TAB PO SCH (09:11)
[2017-08-19] MEDS: cefTRIAXone\\ROCEPHIN 1 GM, Syringe 0.4 ML in Sterile Water 9.6 ML SLOW IVP SCH (10:27)
--- NOTE | 2017-08-19 12:05 | PRG ---
DATE OF SERVICE: 08/19/2017 RENAL MEDICINE SUBJECTIVE: Ms. Garcia is a 72-year-old female being followed up for her acute kidney injur y. Renal function has continued to worsen. This is even after empiric volume repletion with colloid s and crystalloids. The possibility of an ATN remains versus that of hepatorenal syndrome. I did di scuss at length about dialysis. The patient is open to a dialytic intervention. However, her overal l prognosis remains poor due to her underlying cirrhosis. She denies any new complaints. She denies any chest pain or shortness of breath. She does mention about abdominal distention which could be r elated to her ascites from her cirrhosis. OBJECTIVE: VITAL SIGNS: Blood pressure 125/56, heart rate 88, respiratory rate 18, temperature 98.2, and pulse ox 95%. GENERAL: Awake, alert, comfortable, obese, sitting, not in distress. SKIN: Adequate turgor. HEENT: Slightly pale conjunctivae, anicteric sclerae. NECK: No neck mass, no carotid bruits, no JVD. CHEST: No deformities. LUNGS: Clear breath sounds. No wheezing, no crackles. HEART: Normal sinus rhythm. No murmur, no gallops, no rubs. ABDOMEN: Globular, soft, nontender. No masses. EXTREMITIES: She has no edema, no deformities. LABORATORY DATA: Laboratories of 08/19/2017; white count 3.9, hemoglobin 8.3. Sodium 139, potassium 5.1, chloride 110, carbon dioxide 18, BUN 64, creatinine 4.75, GFR is 9 mL per minute, glucose is 99, calcium 9.1, and phosphorus is 5.8. ASSESSMENT AND PLAN: 1. Acute kidney injury - worsening renal dysfunction. Continue supportive care. I had a long discu ssion of what dialytic intervention. We will consider consulting Dr. Telles today. We may consider initiating dialysis due to the glomerular filtration rate that is already less than 10 mL per minute. Continue supportive care. Overall, prognosis remains guarded. 2. Cirrhosis, supportive care.
--- NOTE | 2017-08-19 12:12 | PDOC.PN ---
- Subjective Encounter Start Date: 08/19/17 Encounter Start Time: 08:20 Patient seen and examined. c/o abdominal distention. No overnight events - Objective Resuscitation Status: Resuscitation Status FULL:Full Resuscitation MAR Reviewed: Yes Vital Signs & Weight: Vital Signs (12 hours) Temp Pulse Resp BP Pulse Ox 08/19/17 10:25 90 20 08/19/17 07:58 98.2 F 88 18 125/56 L 95 08/19/17 06:28 92 L 08/19/17 06:24 89 16 92 L 08/19/17 02:37 16 Weight Weight 253 lb 6.4 oz I&O: 08/18/17 08/19/17 08/20/17 06:59 06:59 06:59 Intake Total 300 1340 Balance 300 1340 Result Diagrams: 08/19/17 04:14 08/19/17 04:14 Phys Exam - Physical Examination Constitutional: NAD HEENT: PERRLA, moist MMs, sclera anicteric Neck: no JVD, supple Respiratory: no wheezing, no rhonchi reduced air entry at base Cardiovascular: RRR, no significant murmur, no rub Gastrointestinal: soft, positive bowel sounds ascites+, edema of wall Musculoskeletal: pulses present, edema present Neurological: non-focal, normal sensation Lymphatic: no nodes Psychiatric: normal affect, A&O x 3 Skin: no rash, normal turgor Dx/Plan (1) SONYA (acute kidney injury) Code(s): N17.9 - ACUTE KIDNEY FAILURE, UNSPECIFIED Status: Acute Comment: (2) Ascites Code(s): R18.8 - OTHER ASCITES Status: Acute Qualifiers: Ascites type: other type Qualified Code(s): R18.8 - Other ascites (3) Hepatic encephalopathy Code(s): K72.90 - HEPATIC FAILURE, UNSPECIFIED WITHOUT COMA Status: Acute Comment: (4) Hyponatremia Code(s): E87.1 - HYPO-OSMOLALITY AND HYPONATREMIA Status: Acute (5) Thrombocythemia Status: Acute (6) Chronic low back pain Code(s): M54.5 - LOW BACK PAIN; G89.29 - OTHER CHRONIC PAIN Status: Chronic (7) Hypertension Code(s): I10 - ESSENTIAL (PRIMARY) HYPERTENSION Status: Chronic Qualifiers: Hypertension type: essential hypertension Qualified Code(s): I10 - Essential (primary) hypertension (8) Macrocytic anemia Code(s): D53.9 - NUTRITIONAL ANEMIA, UNSPECIFIED Status: Chronic (9) Non-alcoholic micronodular cirrhosis of liver Code(s): K74.69 - OTHER CIRRHOSIS OF LIVER Status: Chronic (10) Osteoarthritis Code(s): M19.90 - UNSPECIFIED OSTEOARTHRITIS, UNSPECIFIED SITE Status: Chronic Qualifiers: Osteoarthritis location: multiple joints Osteoarthritis type: primary Qualified Code(s): M15.0 - Primary generalized (osteo)arthritis (11) Portal hypertension Code(s): K76.6 - PORTAL HYPERTENSION Status: Chronic (12) Varices, esophageal Code(s): I85.00 - ESOPHAGEAL VARICES WITHOUT BLEEDING Status: Chronic (13) Hepatorenal syndrome Code(s): K76.7 - HEPATORENAL SYNDROME Status: Acute (14) Normal anion gap metabolic acidosis Code(s): E87.2 - ACIDOSIS Status: Acute (15) Morbid obesity with BMI of 40.0-44.9, adult Code(s): E66.01 - MORBID (SEVERE) OBESITY DUE TO EXCESS CALORIES; Z68.41 - BODY MASS INDEX (BMI) 40.0-44.9, ADULT Status: Chronic - Plan cont current plan of care, plan discussed w/ family, continue antibiotics * discussed with family and answered many question about HD * pt's renal function still continue to worse, and now has anasarca * medication reviewed as below * symptomatic treatment * will need HD * prognosis is very poor. Review of Systems - Review of Systems Constitutional: negative: Fever, Chills, Sweats, Weakness, Malaise, Other ENT: negative: Ear Pain, Ear Discharge, Nose Pain, Nose Discharge, Nose Congestion, Mouth Pain, Mouth Swelling, Throat Pain, Throat Swelling, Other Respiratory: Shortness of Breath. negative: Cough, Dry, Hemoptysis, SOB with Excertion, Pleuritic Pain, Sputum, Wheezing Cardiovascular: Edema. negative: Chest Pain, Palpitations, Orthopnea, Paroxysmal Noc. Dyspnea, Light Headedness, Other Gastrointestinal: negative: Nausea, Vomiting, Abdominal Pain, Diarrhea, Constipation, Melena, Hematochezia, Other Genitourinary: negative: Dysuria, Frequency, Incontinence, Hematuria, Retention , Other Musculoskeletal: negative: Neck Pain, Shoulder Pain, Arm Pain, Back Pain, Hand Pain, Leg Pain, Foot Pain, Other - Medications/Allergies Allergies/Adverse Reactions: Allergies Allergy/AdvReac Type Severity Reaction Status Date / Time No Known Allergies Allergy Verified 08/11/17 12:14 Medications: Current Medications Albuterol/Ipratropium (Duoneb) 3 ml NEB [id number] [facility] Last Admin: 08/19/17 10:25 Dose: 3 ml Albuterol/Ipratropium (Duoneb) 3 ml NEB [id number] PRN PRN Reason: SOB &/or Wheezing Cyanocobalamin (Vitamin B-12) 1,000 mcg PO DAILY [facility] Last Admin: 08/19/17 09:11 Dose: 1,000 mcg Ferrous Sulfate (Feosol) 325 mg PO QAM-WM [facility] Last Admin: 08/19/17 09:11 Dose: 325 mg Folic Acid (Folvite) 1 mg PO DAILY [facility] Last Admin: 08/19/17 09:11 Dose: 1 mg Ceftriaxone Sodium 1 gm/ (Syringe 0.4 ml/ Sterile Water) 10 mls @ 120 mls/hr SLOW IVP 1000 [facility] Last Admin: 08/19/17 10:27 Dose: 10 mls Iron/Minerals/Multivitamins (Theragran M) 1 tab PO DAILY [facility] Last Admin: 08/19/17 09:10 Dose: 1 tab Lactulose (Lactulose) 30 gm PO BID [facility] Last Admin: 08/19/17 09:10 Dose: 30 gm Methylprednisolone Sodium Succinate (Solu-Medrol) 20 mg IVP Q8HR [facility] Last Admin: 08/19/17 05:24 Dose: 20 mg Midodrine (Proamatine) 10 mg PO TID [facility] Last Admin: 08/19/17 09:11 Dose: 10 mg Mometasone Furoate/Formoterol Fumar (Dulera 200 Mcg/5 Mcg Inhaler) 2 puff INH BID-RT [facility] Last Admin: 08/19/17 06:24 Dose: 2 puff Ondansetron HCl (Zofran Odt) 4 mg PO Q6H PRN PRN Reason: Nausea/Vomiting Last Admin: 08/15/17 06:50 Dose: 4 mg Pantoprazole Sodium (Protonix) 40 mg IVP DAILY [facility] Last Admin: 08/19/17 09:11 Dose: 40 mg Sodium Bicarbonate (Bicarbonate, Sodium) 650 mg PO BID [facility] Last Admin: 11/24/17 09:11 Dose: 650 mg Sodium Chloride (Flush - Normal Saline) 10 ml IVF Q12HR [facility] Last Admin: 08/19/17 09:12 Dose: 10 ml Sodium Chloride (Flush - Normal Saline) 10 ml IVF PRN PRN PRN Reason: Saline Flush Last Admin: 08/14/17 23:37 Dose: 10 ml Thiamine HCl (Thiamine) 100 mg PO DAILY [facility] Last Admin: 08/19/17 09:11 Dose: 100 mg
--- NOTE | 2017-08-19 17:00 | ULT ---
BILATERAL UPPER EXTREMITY VENOUS MAPPING 08/19/17 HISTORY: End-stage renal disease. Evaluate for dialysis access. FINDINGS: The bilateral internal jugular and subclavian veins demonstrated normal flow. There is normal lumen c ompressibility involving the bilateral axillary veins. RIGHT UPPER EXTREMITY BRACHIAL ARTERY: 4.3 mm RADIAL ARTERY: 2.1 mm ULNAR ARTERY: 1.4 mm CEPHALIC VEIN Upper Arm: 1.7 mm Mid Arm: 2.3 mm Distal Arm: 2.4 mm Antecubital Fossa: 2 mm Proximal Forearm: 1 mm Mid Forearm: 1.2 mm Distal Forearm: 0.5 mm BASILIC VEIN Upper Arm: 3.9 mm Mid Arm: 3.1 mm Distal Arm: 3.2 mm Antecubital Fossa: 2.5 mm Proximal Forearm: 1 mm Mid Forearm: 0.5 mm Distal Forearm: 0.9 mm LEFT UPPER EXTREMITY BRACHIAL ARTERY: 4.6 mm RADIAL ARTERY: 1.4 mm ULNAR ARTERY: 1.6 mm CEPHALIC VEIN Upper Arm: 1.6 mm Mid Arm: 1.9 mm Distal Arm: 1.6 mm Antecubital Fossa: 1.8 mm Proximal Forearm: 0.7 mm Mid Forearm: 0.6 mm Distal Forearm: 0.6 mm BASILIC VEIN Upper Arm: 5.1 mm Mid Arm: 6.1 mm Distal Arm: 2.2 mm Antecubital Fossa: 1.9 mm Proximal Forearm: 1.3 mm Mid Forearm: 0.5 mm Distal Forearm: 0.3 mm IMPRESSION: Venous diameters of the bilateral upper extremity cephalic and basilic veins are as described above. POS: [facility]
[2017-08-19] MEDS ORDERED: CEFAZOLIN/Water 2 GM/20 ML SYRINGE SLOW IVP SCH ×2 (17:15→19:45)
--- NOTE | 2017-08-19 18:07 | HP ---
HISTORY OF PRESENT ILLNESS: Ms. Kady Garcia is a 72-year-old female followed by Dr. Ryan mathews, Hospitalist Gastroenterology, has hepatorenal syndrome with longstanding cirrhosis due to fatty li silver. There is no significant alcohol intake history. She has recently developed increasing ascites. She was able to work until earlier this year at [employer] when she had to stop work because of these problems. She has progressive renal failure. I have been asked today to see her regarding placement of hemodialysis catheter. ICU was asked to place a midline IV access in her left cephalic vein delt opectoral area. This has gone bad. I have asked for an incident report regarding this as this is no t to be done on chronic kidney disease, end-stage renal disease patients. Since the patient ate at 8 :30 this morning, we will plan her hemodialysis catheter and central line access at approximately 5:0 0 p.m. Patient has had ultrasound vein mapping both arms noting the right arm to be superior with a cephalic vein at 1.7, 2.3, 2.4 and 2.0 mm antecubital fossa; a basilic vein 3.9, 3.1, 3.2 and 2.5 mm antecubital fossa. On the left, her cephalic vein is 1.6, 1.9, 1.6, 1.8 cm, and basilic vein 5.1, 6. 1, 2.2 and 1.9 mm. She understands the risks and benefits of the procedure and consents. She does h ave thrombocytopenia and a coagulopathy secondary to her cirrhosis. She also has splenomegaly. ALLERGIES: None. TOBACCO: None for 4 years, abuse prior to that. ALCOHOL: Occasional use many years ago, but no history of abuse. MEDICATIONS: Zofran p.r.n., clonidine 0.1 mg b.i.d., rifaximin 550 mg p.o. b.i.d., gabapentin 300 mg at bedtime, Symbicort 1 puff INH b.i.d., albuterol sulfate 2 puffs INH q.4 hours p.r.n., Corgard 10 mg p.o. q.2 days, Protonix 40 mg daily and lactulose 10 mg b.i.d. PAST SURGICAL HISTORY: Noncontributory. PAST MEDICAL HISTORY: Morbid obesity, metabolic syndrome, hypertension and cirrhosis secondary to fa tty liver. Coagulopathy with PT of 20 and INR of 1.7. Chronic anemia of medical disease, 8.3 hemogl obin and platelet count 57,000. Sodium 139, potassium 5.1, BUN 64 and creatinine 4.75. Patient has had upper endoscopy performed years past and there was no evidence of varices. PHYSICAL EXAMINATION: VITAL SIGNS: Height 5 feet 4 inches. Weighs 253 pounds. BMI of 43. Temperature 98.2 degrees, puls e 88, respirations 16 and blood pressure 125/56. HEENT: Unremarkable. Sclerae nonicteric. LUNGS: Clear to auscultation. CARDIAC: Regular rate and rhythm without murmur or gallop. ABDOMEN: Obese and soft. Positive fluid wave. EXTREMITIES: Edematous with ecchymosis both extremities indicative of IV access and blood draw attem pts, bandage left, shoulder deltopectoral groove from recent IV. ASSESSMENT AND PLAN: 1. End-stage renal disease. Plan hemodialysis catheter and central line placement today. Avoid acc ess in her arms for dialysis access. We will plan early next week placement of right arm primary fis scott or dialysis graft. 2. Cirrhosis with splenomegaly, coagulopathy and thrombocytopenia. 3. Morbid obesity. 4. Metabolic syndrome. 5. Hypertension.
--- NOTE | 2017-08-19 18:28 | PRG ---
DATE OF SERVICE: 08/19/2017 GI INPATIENT DAILY PROGRESS NOTE SUBJECTIVE: Ms. Garcia has had some weeping from the right side of her abdomen. She is developing a nasarca. Renal function continues to decline. They have made the decision to pursue dialysis and so she is going to be getting aligned later today. She otherwise is in great spirits and has no compla ints. OBJECTIVE: VITAL SIGNS: Temperature 98.2, pulse 88, blood pressure 125/56, 95% oxygen saturation on room air. GENERAL: No acute distress. Anasarca is evident. HEART: Regular rate and rhythm. LUNGS: Clear to auscultation bilaterally. ABDOMEN: Distended with ascites, some weeping of fluid from the right side. Nontender to palpation. EXTREMITIES: Bilateral lower extremity edema. LABORATORY DATA: Sodium 139, potassium up to 5.1, BUN up to 64, creatinine up to 4.75, INR 1.7. WBC 3.9, hemoglobin 8.3, platelets 57. ASSESSMENT AND PLAN: 1. Hepatic encephalopathy, resolved. 2. Nonalcoholic steatohepatitis cirrhosis. 3. Progressive renal failure. The patient will be getting a dialysis line today. There is no incre ased work of breathing at this point. No plan for any paracentesis at this time. Hopefully, excess fluid can started to be pulled with dialysis. No further recommendations from GI/liver standpoint at this time. Please call with questions or concerns.
[2017-08-19] MEDS ORDERED: Bupivacaine/Epinephrine 0.25% 30 ML VIAL ONE (18:49)
[2017-08-19] MEDS ORDERED: Sodium Chloride 0.9% 10 ML ONE ×2 (18:49→18:54)
[2017-08-19] MEDS ORDERED: Heparin 10,000 UNITS/1 ML VIAL ONE (18:49)
[2017-08-19] MEDS ORDERED: Fentanyl 100 MCG/2 ML VIAL ONE (18:55)
[2017-08-19] MEDS ORDERED: Midazolam HCl 2 mg/2 ml Vial ONE (18:55)
[2017-08-19] MEDS ORDERED: Promethazine HCl 25 MG/ML VIAL IM PRN (19:56)
[2017-08-19] MEDS ORDERED: Ondansetron HCl/PF 4 MG/2 ML Vial IVP PRN (19:56)
[2017-08-19] MEDS ORDERED: Promethazine HCl 25 MG/ML VIAL SLOW IVP PRN (19:56)
--- NOTE | 2017-08-19 20:20 | RAD ---
CHEST ONE VIEW: 08/19/17 HISTORY: Chest pain. Heart cath. COMPARISON: 08/18/17. FINDINGS: The cardiac silhouette is magnified and enlarged. Pulmonary vasculature is engorged with patchy bilat eral perihilar and bibasilar infiltrates. Mediastinum is midline. Tips of large caliber right interna l jugular and single lumen left internal jugular catheter to overlie the superior vena cava. There is no evidence of pneumothorax. IMPRESSION: Cardiomegaly with pulmonary edema. POS: [facility]
[2017-08-19] MEDS: traMADol HCl 50 MG TAB PO PRN (22:13)
[2017-08-20] MEDS: Ondansetron ODT 4 MG TAB PO PRN ×2 (01:53→09:21)
[2017-08-20] MEDS ORDERED: Ondansetron HCl/PF 4 MG/2 ML Vial IVP SCH (06:45)
[2017-08-20 08:48] LABS: #Lymphocytes 0.3 thou/uL (1.20-3.40); #Monocytes 0.5 thou/uL (0.11-0.59); #Neutrophils 8.3 thou/uL (1.40-6.50); %Eosinophils 0.3 % (0.0-10.0); %Lymphocytes 2.9 % (21.0-51.0); %Monocytes 5.8 % (0.0-10.0); Hematocrit 32.1 % (36.0-47.0); Mean Platelet Volume 7.6 fL (7.4-10.4); Red Blood Cell (RBC) Count 3.06 mill/uL (4.20-5.40); White Blood Cell (WBC) Count 9.1 thou/uL (4.8-10.8)
[2017-08-20 09:08] LABS: Anion Gap 16 mmol/L (10-20); BUN (Urea Nitrogen) 57 mg/dL (9.8-20.1); BUN/Creatinine Ratio 14.36; Calc. Creatinine Clearance 24 mL/min (70-130); Calcium 9.8 mg/dL (7.8-10.44); Carbon Dioxide 24 mmol/L (23-31); Chloride 105 mmol/L (98-107); Estimated GFR-MDRD 11; Phosphorus 4.7 mg/dL (2.3-4.7)
[2017-08-20] MEDS: Pantoprazole 40 MG VIAL IVP SCH (09:24)
[2017-08-20] MEDS: cefTRIAXone\\ROCEPHIN 1 GM, Syringe 0.4 ML in Sterile Water 9.6 ML SLOW IVP SCH (09:24)
[2017-08-20] MEDS: Multivitamin W/ Minerals 1 TAB PO SCH (09:25)
[2017-08-20] MEDS: Sodium Bicarbonate Tab 325 MG TAB PO SCH ×2 (09:25→21:34)
[2017-08-20] MEDS: Midodrine HCl 5 MG TAB PO SCH ×3 (09:25→21:33)
[2017-08-20] MEDS: Folic Acid 1 MG TAB PO SCH (09:25)
[2017-08-20] MEDS: Ferrous Sulfate 325 MG TAB PO SCH (09:25)
[2017-08-20] MEDS: Cyanocobalamin (Vitamin B-12) 1,000 MCG TAB PO SCH (09:26)
[2017-08-20] MEDS: Mometasone/Formoterol 120 PUFF INHALER INH SCH ×2 (11:22→19:35)
--- NOTE | 2017-08-20 12:24 | PRG ---
DATE OF SERVICE: 08/20/2017 SUBJECTIVE: Ms. Garcia underwent short 1 hour hemodialysis today. About 1 L of fluid was removed. She is now complaining of some nausea and vomiting after dialysis. She is being given p.r.n. Zofran. She denies any chest pain or shortness of breath. OBJECTIVE: VITAL SIGNS: Blood pressure is 122/73, heart rate 87, respiratory rate 16, temperature 97.7, pulse o x 94%. GENERAL: Noted to be awake, obese, supine, comfortable. SKIN: Adequate turgor. HEENT: Slightly pale conjunctivae, anicteric sclerae. NECK: No neck mass, no carotid bruits, no JVD. CHEST: No deformities. LUNGS: Clear breath sounds. HEART: Normal sinus rhythm. No murmur, no gallops, no rubs. ABDOMEN: Globular, soft, nontender, no masses. EXTREMITIES: Trace edema. Please note the patient has positive ascites. MEDICATIONS: 08/20/2017 was reviewed. LABORATORY: 08/20/2017, white count 9.1, hemoglobin 10.1, sodium 140, potassium 4.7, chloride 105, c arbon dioxide 24, BUN 57, creatinine 3.97, phosphorus is 4.7. ASSESSMENT AND PLAN: 1. Acute kidney injury -- superimposed acute tubular necrosis. Of interest, the creatinine has impr meghann in the last 24 hours from 4.75-3.97. However, with the dialysis, I anticipate further improveme nt with the creatinine. My plan is to hold off the dialysis tomorrow. Continue to observe daily the patient's base met. 2. Anemia -- stable. We will hold off Epogen for the moment. 3. Cirrhosis, continues supportive care. Patient currently not a liver transplant candidate. Her o verall prognosis remains guarded. Recheck basic metabolic panel and CBC in a.m.
--- NOTE | 2017-08-20 12:34 | PDOC.PN ---
- Subjective Encounter Start Date: 08/20/17 Encounter Start Time: 10:50 Patient seen and examined. No new complaints. No overnight events, pt seen in dialysis room - Objective Resuscitation Status: Resuscitation Status FULL:Full Resuscitation MAR Reviewed: Yes Vital Signs & Weight: Vital Signs (12 hours) Temp Pulse Resp BP Pulse Ox 08/20/17 11:27 97.9 F 86 18 99/64 96 08/20/17 04:00 97.7 F 87 16 122/73 94 L Weight Weight 253 lb 6.4 oz I&O: 08/19/17 08/20/17 08/21/17 06:59 06:59 06:59 Intake Total 1340 720 Balance 1340 720 Result Diagrams: 08/20/17 08:39 08/20/17 08:39 Phys Exam - Physical Examination Constitutional: NAD HEENT: PERRLA, moist MMs, sclera anicteric Neck: no JVD, supple Respiratory: no wheezing, no rales, no rhonchi Cardiovascular: RRR, no significant murmur, no rub Gastrointestinal: soft, non-tender morbid obesity+ Musculoskeletal: pulses present, edema present Neurological: non-focal, normal sensation Lymphatic: no nodes Psychiatric: normal affect Skin: normal turgor Dx/Plan (1) SONYA (acute kidney injury) Code(s): N17.9 - ACUTE KIDNEY FAILURE, UNSPECIFIED Status: Acute Comment: (2) Ascites Code(s): R18.8 - OTHER ASCITES Status: Acute Qualifiers: Ascites type: other type Qualified Code(s): R18.8 - Other ascites (3) Hepatic encephalopathy Code(s): K72.90 - HEPATIC FAILURE, UNSPECIFIED WITHOUT COMA Status: Acute Comment: (4) Hyponatremia Code(s): E87.1 - HYPO-OSMOLALITY AND HYPONATREMIA Status: Acute (5) Thrombocythemia Status: Acute (6) Chronic low back pain Code(s): M54.5 - LOW BACK PAIN; G89.29 - OTHER CHRONIC PAIN Status: Chronic (7) Hypertension Code(s): I10 - ESSENTIAL (PRIMARY) HYPERTENSION Status: Chronic Qualifiers: Hypertension type: essential hypertension Qualified Code(s): I10 - Essential (primary) hypertension (8) Macrocytic anemia Code(s): D53.9 - NUTRITIONAL ANEMIA, UNSPECIFIED Status: Chronic (9) Non-alcoholic micronodular cirrhosis of liver Code(s): K74.69 - OTHER CIRRHOSIS OF LIVER Status: Chronic (10) Osteoarthritis Code(s): M19.90 - UNSPECIFIED OSTEOARTHRITIS, UNSPECIFIED SITE Status: Chronic Qualifiers: Osteoarthritis location: multiple joints Osteoarthritis type: primary Qualified Code(s): M15.0 - Primary generalized (osteo)arthritis (11) Portal hypertension Code(s): K76.6 - PORTAL HYPERTENSION Status: Chronic (12) Varices, esophageal Code(s): I85.00 - ESOPHAGEAL VARICES WITHOUT BLEEDING Status: Chronic (13) Hepatorenal syndrome Code(s): K76.7 - HEPATORENAL SYNDROME Status: Acute (14) Normal anion gap metabolic acidosis Code(s): E87.2 - ACIDOSIS Status: Acute (15) Morbid obesity with BMI of 40.0-44.9, adult Code(s): E66.01 - MORBID (SEVERE) OBESITY DUE TO EXCESS CALORIES; Z68.41 - BODY MASS INDEX (BMI) 40.0-44.9, ADULT Status: Chronic - Plan cont current plan of care, continue antibiotics * HD started today * will monitor renal function * will need outpt HD arrangement * medication reviewed as below * symptomatic treatment * continue rocephin. * repeat labs tomorrow Review of Systems - Review of Systems ENT: negative: Ear Pain, Ear Discharge, Nose Pain, Nose Discharge, Nose Congestion, Mouth Pain, Mouth Swelling, Throat Pain, Throat Swelling, Other Respiratory: negative: Cough, Dry, Shortness of Breath, Hemoptysis, SOB with Excertion, Pleuritic Pain, Sputum, Wheezing Cardiovascular: negative: Chest Pain, Palpitations, Orthopnea, Paroxysmal Noc. Dyspnea, Edema, Light Headedness, Other Gastrointestinal: negative: Nausea, Vomiting, Abdominal Pain, Diarrhea, Constipation, Melena, Hematochezia, Other Genitourinary: negative: Dysuria, Frequency, Incontinence, Hematuria, Retention , Other Musculoskeletal: negative: Neck Pain, Shoulder Pain, Arm Pain, Back Pain, Hand Pain, Leg Pain, Foot Pain, Other - Medications/Allergies Allergies/Adverse Reactions: Allergies Allergy/AdvReac Type Severity Reaction Status Date / Time No Known Allergies Allergy Verified 08/11/17 12:14 Medications: Current Medications Albuterol/Ipratropium (Duoneb) 3 ml NEB [id number] [facility] Last Admin: 08/20/17 11:21 Dose: Not Given Albuterol/Ipratropium (Duoneb) 3 ml NEB [id number] PRN PRN Reason: SOB &/or Wheezing Cefazolin Sodium (Ancef) 2 gm SLOW IVP [facility]CALL [facility] Stop: 08/20/17 19:46 Cyanocobalamin (Vitamin B-12) 1,000 mcg PO DAILY [facility] Last Admin: 08/20/17 09:26 Dose: 1,000 mcg Ferrous Sulfate (Feosol) 325 mg PO QAM-WM [facility] Last Admin: 08/20/17 09:25 Dose: 325 mg Folic Acid (Folvite) 1 mg PO DAILY [facility] Last Admin: 08/20/17 09:25 Dose: 1 mg Ceftriaxone Sodium 1 gm/ (Syringe 0.4 ml/ Sterile Water) 10 mls @ 120 mls/hr SLOW IVP 1000 [facility] Last Admin: 08/20/17 09:24 Dose: 10 mls Iron/Minerals/Multivitamins (Theragran M) 1 tab PO DAILY [facility] Last Admin: 08/20/17 09:25 Dose: 1 tab Lactulose (Lactulose) 30 gm PO BID [facility] Last Admin: 08/20/17 09:26 Dose: 30 gm Methylprednisolone Sodium Succinate (Solu-Medrol) 20 mg IVP Q8HR [facility] Last Admin: 08/20/17 06:24 Dose: 20 mg Midodrine (Proamatine) 10 mg PO TID [facility] Last Admin: 08/20/17 09:25 Dose: 10 mg Mometasone Furoate/Formoterol Fumar (Dulera 200 Mcg/5 Mcg Inhaler) 2 puff INH BID-RT [facility] Last Admin: 08/20/17 11:22 Dose: Not Given Ondansetron HCl (Zofran Odt) 4 mg PO Q6H PRN PRN Reason: Nausea/Vomiting Last Admin: 08/20/17 09:21 Dose: 4 mg Pantoprazole Sodium (Protonix) 40 mg IVP DAILY [facility] Last Admin: 08/20/17 09:24 Dose: 40 mg Sodium Bicarbonate (Bicarbonate, Sodium) 650 mg PO BID [facility] Last Admin: 08/20/17 09:25 Dose: 650 mg Sodium Chloride (Flush - Normal Saline) 10 ml IVF Q12HR [facility] Last Admin: 08/20/17 10:15 Dose: 10 ml Sodium Chloride (Flush - Normal Saline) 10 ml IVF PRN PRN PRN Reason: Saline Flush Last Admin: 08/14/17 23:37 Dose: 10 ml Thiamine HCl (Thiamine) 100 mg PO DAILY [facility] Last Admin: 08/20/17 09:25 Dose: 100 mg Tramadol HCl (Ultram) 50 mg PO Q12H PRN PRN Reason: Moderate Pain (4-6) Last Admin: 08/19/17 22:13 Dose: 50 mg
[2017-08-21] MEDS: Ondansetron ODT 4 MG TAB PO PRN ×3 (02:07→17:18)
[2017-08-21 05:39] LABS: #Basophils 0.1 thou/uL (0.0-0.2); #Lymphocytes 0.3 thou/uL (1.20-3.40); #Monocytes 0.6 thou/uL (0.11-0.59); #Neutrophils 7.5 thou/uL (1.40-6.50); %Basophils 1.4 % (0.0-1.0); %Eosinophils 0.5 % (0.0-10.0); %Lymphocytes 3.2 % (21.0-51.0); %Monocytes 6.5 % (0.0-10.0); Hematocrit 28.2 % (36.0-47.0); Mean Platelet Volume 7.9 fL (7.4-10.4); Red Blood Cell (RBC) Count 2.66 mill/uL (4.20-5.40); White Blood Cell (WBC) Count 8.5 thou/uL (4.8-10.8)
[2017-08-21 05:55] LABS: Anion Gap 16 mmol/L (10-20); BUN (Urea Nitrogen) 84 mg/dL (9.8-20.1); Calc. Creatinine Clearance 17 mL/min (70-130); Calcium 9.4 mg/dL (7.8-10.44); Carbon Dioxide 22 mmol/L (23-31); Chloride 108 mmol/L (98-107); Estimated GFR-MDRD 8
[2017-08-21] MEDS: Mometasone/Formoterol 120 PUFF INHALER INH SCH ×2 (07:37→18:22)
[2017-08-21] MEDS: Cyanocobalamin (Vitamin B-12) 1,000 MCG TAB PO SCH (08:10)
[2017-08-21] MEDS: Pantoprazole 40 MG VIAL IVP SCH (08:10)
[2017-08-21] MEDS: Midodrine HCl 5 MG TAB PO SCH ×3 (08:10→21:15)
[2017-08-21] MEDS: Sodium Bicarbonate Tab 325 MG TAB PO SCH ×2 (08:10→21:14)
[2017-08-21] MEDS: Ferrous Sulfate 325 MG TAB PO SCH (08:10)
[2017-08-21] MEDS: Multivitamin W/ Minerals 1 TAB PO SCH (08:10)
[2017-08-21] MEDS: Folic Acid 1 MG TAB PO SCH (08:11)
--- NOTE | 2017-08-21 08:47 | EKG ---
Test Reason : JBM Blood Pressure : / mmHG Vent. Rate : 083 BPM Atrial Rate : 083 BPM P-R Int : 144 ms QRS Dur : 096 ms QT Int : 380 ms P-R-T Axes : 048 010 029 degrees QTc Int : 446 ms Normal sinus rhythm Low voltage QRS Cannot rule out Anterior infarct , age undetermined Abnormal ECG Confirmed by Jm CAMARILLO ([id number]) on 08/21/2017 8:47:27 AM Referred By: SANTANA Confirmed By:Jm CAMARILLO
[2017-08-21] MEDS: cefTRIAXone\\ROCEPHIN 1 GM, Syringe 0.4 ML in Sterile Water 9.6 ML SLOW IVP SCH (08:52)
--- NOTE | 2017-08-21 12:36 | PDOC.PN ---
- Subjective Encounter Start Date: 08/21/17 Encounter Start Time: 09:00 pt is sleeping, has no BM for 1-2 days, no fever, weak today - Objective Resuscitation Status: Resuscitation Status FULL:Full Resuscitation MAR Reviewed: Yes Vital Signs & Weight: Vital Signs (12 hours) Temp Pulse Resp BP Pulse Ox 08/21/17 10:50 70 16 08/21/17 08:03 97.5 F L 74 16 137/76 95 08/21/17 08:00 97.5 F L 74 16 08/21/17 07:37 95 12 97 08/21/17 07:36 75 12 08/21/17 05:01 97.8 F 76 20 146/76 H 96 08/21/17 02:35 78 16 96 Weight Weight 253 lb 6.4 oz I&O: 08/20/17 08/21/17 08/22/17 06:59 06:59 06:59 Intake Total 720 325 Balance 720 325 Result Diagrams: 08/21/17 05:20 08/21/17 05:20 Phys Exam - Physical Examination Constitutional: NAD sleeping HEENT: PERRLA, moist MMs, sclera anicteric Neck: no JVD, supple Respiratory: no wheezing, no rales, no rhonchi Cardiovascular: RRR, no significant murmur, no rub Gastrointestinal: soft, positive bowel sounds ascites+ Musculoskeletal: pulses present, edema present Neurological: moves all 4 limbs Lymphatic: no nodes Skin: no rash, normal turgor Dx/Plan (1) SONYA (acute kidney injury) Code(s): N17.9 - ACUTE KIDNEY FAILURE, UNSPECIFIED Status: Acute Comment: (2) Ascites Code(s): R18.8 - OTHER ASCITES Status: Acute Qualifiers: Ascites type: other type Qualified Code(s): R18.8 - Other ascites (3) Hepatic encephalopathy Code(s): K72.90 - HEPATIC FAILURE, UNSPECIFIED WITHOUT COMA Status: Acute Comment: (4) Hyponatremia Code(s): E87.1 - HYPO-OSMOLALITY AND HYPONATREMIA Status: Acute (5) Thrombocythemia Status: Acute (6) Chronic low back pain Code(s): M54.5 - LOW BACK PAIN; G89.29 - OTHER CHRONIC PAIN Status: Chronic (7) Hypertension Code(s): I10 - ESSENTIAL (PRIMARY) HYPERTENSION Status: Chronic Qualifiers: Hypertension type: essential hypertension Qualified Code(s): I10 - Essential (primary) hypertension (8) Macrocytic anemia Code(s): D53.9 - NUTRITIONAL ANEMIA, UNSPECIFIED Status: Chronic (9) Non-alcoholic micronodular cirrhosis of liver Code(s): K74.69 - OTHER CIRRHOSIS OF LIVER Status: Chronic (10) Osteoarthritis Code(s): M19.90 - UNSPECIFIED OSTEOARTHRITIS, UNSPECIFIED SITE Status: Chronic Qualifiers: Osteoarthritis location: multiple joints Osteoarthritis type: primary Qualified Code(s): M15.0 - Primary generalized (osteo)arthritis (11) Portal hypertension Code(s): K76.6 - PORTAL HYPERTENSION Status: Chronic (12) Varices, esophageal Code(s): I85.00 - ESOPHAGEAL VARICES WITHOUT BLEEDING Status: Chronic (13) Hepatorenal syndrome Code(s): K76.7 - HEPATORENAL SYNDROME Status: Acute (14) Normal anion gap metabolic acidosis Code(s): E87.2 - ACIDOSIS Status: Acute (15) Morbid obesity with BMI of 40.0-44.9, adult Code(s): E66.01 - MORBID (SEVERE) OBESITY DUE TO EXCESS CALORIES; Z68.41 - BODY MASS INDEX (BMI) 40.0-44.9, ADULT Status: Chronic - Plan cont current plan of care, plan discussed w/ family, continue antibiotics, PT/OT , medical social consultant * today on hold dialysis * tomorrow dialysis and possible AVF placement * will need outpt dialysis arrangement * discussed with family * will repeat labs tomorrow * medication reviewed as below * symptomatic treatment. Review of Systems - Review of Systems Other: today unable to review as pt is sleeping - Medications/Allergies Allergies/Adverse Reactions: Allergies Allergy/AdvReac Type Severity Reaction Status Date / Time No Known Allergies Allergy Verified 08/11/17 12:14 Medications: Current Medications Albuterol/Ipratropium (Duoneb) 3 ml NEB [id number] [facility] Last Admin: 08/21/17 10:50 Dose: 3 ml Albuterol/Ipratropium (Duoneb) 3 ml NEB [id number] PRN PRN Reason: SOB &/or Wheezing Cyanocobalamin (Vitamin B-12) 1,000 mcg PO DAILY [facility] Last Admin: 08/21/17 08:10 Dose: 1,000 mcg Ferrous Sulfate (Feosol) 325 mg PO QAM-WM [facility] Last Admin: 08/21/17 08:10 Dose: 325 mg Folic Acid (Folvite) 1 mg PO DAILY [facility] Last Admin: 08/21/17 08:11 Dose: 1 mg Ceftriaxone Sodium 1 gm/ (Syringe 0.4 ml/ Sterile Water) 10 mls @ 120 mls/hr SLOW IVP 1000 [facility] Last Admin: 08/21/17 08:52 Dose: 10 mls Iron/Minerals/Multivitamins (Theragran M) 1 tab PO DAILY [facility] Last Admin: 08/21/17 08:10 Dose: 1 tab Lactulose (Lactulose) 30 gm PO BID [facility] Last Admin: 08/21/17 08:11 Dose: 30 gm Methylprednisolone Sodium Succinate (Solu-Medrol) 20 mg IVP Q8HR [facility] Last Admin: 08/21/17 05:15 Dose: 20 mg Midodrine (Proamatine) 10 mg PO TID [facility] Last Admin: 08/21/17 08:10 Dose: 10 mg Mometasone Furoate/Formoterol Fumar (Dulera 200 Mcg/5 Mcg Inhaler) 2 puff INH BID-RT [facility] Last Admin: 08/21/17 07:37 Dose: 2 puff Ondansetron HCl (Zofran Odt) 4 mg PO Q6H PRN PRN Reason: Nausea/Vomiting Last Admin: 08/21/17 08:52 Dose: 4 mg Pantoprazole Sodium (Protonix) 40 mg IVP DAILY [facility] Last Admin: 08/21/17 08:10 Dose: 40 mg Sodium Bicarbonate (Bicarbonate, Sodium) 650 mg PO BID [facility] Last Admin: 08/21/17 08:10 Dose: 650 mg Sodium Chloride (Flush - Normal Saline) 10 ml IVF Q12HR [facility] Last Admin: 08/21/17 08:11 Dose: 10 ml Sodium Chloride (Flush - Normal Saline) 10 ml IVF PRN PRN PRN Reason: Saline Flush Last Admin: 08/14/17 23:37 Dose: 10 ml Thiamine HCl (Thiamine) 100 mg PO DAILY [facility] Last Admin: 08/21/17 08:10 Dose: 100 mg Tramadol HCl (Ultram) 50 mg PO Q12H PRN PRN Reason: Moderate Pain (4-6) Last Admin: 08/19/17 22:13 Dose: 50 mg
[2017-08-22 06:32] LABS: Prothrombin Time 20.9 SEC (12.0-14.7)
[2017-08-22 06:37] LABS: #Lymphocytes 0.4 thou/uL (1.20-3.40); #Monocytes 0.5 thou/uL (0.11-0.59); #Neutrophils 6.4 thou/uL (1.40-6.50); %Eosinophils 0.5 % (0.0-10.0); %Lymphocytes 5.5 % (21.0-51.0); %Monocytes 7.3 % (0.0-10.0); Hematocrit 25.9 % (36.0-47.0); Mean Platelet Volume 8.3 fL (7.4-10.4); Red Blood Cell (RBC) Count 2.46 mill/uL (4.20-5.40); White Blood Cell (WBC) Count 7.4 thou/uL (4.8-10.8)
[2017-08-22 07:08] LABS: ALT (SGPT) 29 U/L (8-55); AST (SGOT) 23 U/L (5-34); Alkaline Phosphatase 129 U/L (40-150); Anion Gap 18 mmol/L (10-20); BUN (Urea Nitrogen) 98 mg/dL (9.8-20.1); Calc. Creatinine Clearance 16 mL/min (70-130); Calcium 9.3 mg/dL (7.8-10.44); Carbon Dioxide 21 mmol/L (23-31); Chloride 108 mmol/L (98-107); Estimated GFR-MDRD 7; Globulin 2.8 g/dL (2.4-3.5); Phosphorus 7.4 mg/dL (2.3-4.7); Protein, Total 6.3 g/dL (6.0-8.3)
[2017-08-22] MEDS: Mometasone/Formoterol 120 PUFF INHALER INH SCH ×2 (07:25→18:54)
[2017-08-22] MEDS ORDERED: Fentanyl 100 MCG/2 ML VIAL ONE ×2 (09:19→10:25)
[2017-08-22] MEDS ORDERED: Midazolam HCl 2 mg/2 ml Vial ONE ×2 (09:19→12:55)
[2017-08-22] MEDS ORDERED: Heparin 5,000 UNITS/ML VIAL ONE (10:23)
[2017-08-22] MEDS ORDERED: Bupivacaine/Epinephrine 0.25% 30 ML VIAL ONE (10:23)
[2017-08-22] MEDS ORDERED: Protamine Sulfate 50 MG/5 ML VIAL ONE (10:23)
[2017-08-22] MEDS ORDERED: Propofol 500 MG/50 ML VIAL ONE (10:36)
[2017-08-22] MEDS ORDERED: hydrALAZINE 20 MG/ML VIAL ONE (11:00)
--- NOTE | 2017-08-22 11:45 | PDOC.PN ---
- Subjective Encounter Start Date: 08/22/17 Encounter Start Time: 08:15 Patient seen and examined. No new complaints. No overnight events - Objective Resuscitation Status: Resuscitation Status FULL:Full Resuscitation MAR Reviewed: Yes Vital Signs & Weight: Vital Signs (12 hours) Temp Pulse Resp BP BP Pulse Ox 08/22/17 09:03 98.2 F 70 20 147/69 H 93 L 08/22/17 08:00 98.2 F 68 15 95 08/22/17 07:23 68 15 98 08/22/17 04:00 97.5 F L 70 18 155/69 H 93 L 08/22/17 02:31 74 14 93 L Weight Weight 253 lb 6.4 oz I&O: 08/21/17 08/22/17 08/23/17 06:59 06:59 06:59 Intake Total 325 240 Balance 325 240 Result Diagrams: 08/22/17 06:05 08/22/17 06:05 Phys Exam - Physical Examination Constitutional: NAD HEENT: PERRLA, moist MMs, sclera anicteric Neck: no JVD, supple Respiratory: no wheezing, no rales, no rhonchi Cardiovascular: RRR, no significant murmur, no rub Gastrointestinal: soft, positive bowel sounds ascites, obesity+ Musculoskeletal: pulses present, edema present Neurological: non-focal, normal sensation Lymphatic: no nodes Psychiatric: normal affect, A&O x 3 Skin: no rash, normal turgor Dx/Plan (1) SONYA (acute kidney injury) Code(s): N17.9 - ACUTE KIDNEY FAILURE, UNSPECIFIED Status: Acute Comment: (2) Ascites Code(s): R18.8 - OTHER ASCITES Status: Acute Qualifiers: Ascites type: other type Qualified Code(s): R18.8 - Other ascites (3) Hepatic encephalopathy Code(s): K72.90 - HEPATIC FAILURE, UNSPECIFIED WITHOUT COMA Status: Acute Comment: (4) Hyponatremia Code(s): E87.1 - HYPO-OSMOLALITY AND HYPONATREMIA Status: Acute (5) Thrombocythemia Status: Acute (6) Chronic low back pain Code(s): M54.5 - LOW BACK PAIN; G89.29 - OTHER CHRONIC PAIN Status: Chronic (7) Hypertension Code(s): I10 - ESSENTIAL (PRIMARY) HYPERTENSION Status: Chronic Qualifiers: Hypertension type: essential hypertension Qualified Code(s): I10 - Essential (primary) hypertension (8) Macrocytic anemia Code(s): D53.9 - NUTRITIONAL ANEMIA, UNSPECIFIED Status: Chronic (9) Non-alcoholic micronodular cirrhosis of liver Code(s): K74.69 - OTHER CIRRHOSIS OF LIVER Status: Chronic (10) Osteoarthritis Code(s): M19.90 - UNSPECIFIED OSTEOARTHRITIS, UNSPECIFIED SITE Status: Chronic Qualifiers: Osteoarthritis location: multiple joints Osteoarthritis type: primary Qualified Code(s): M15.0 - Primary generalized (osteo)arthritis (11) Portal hypertension Code(s): K76.6 - PORTAL HYPERTENSION Status: Chronic (12) Varices, esophageal Code(s): I85.00 - ESOPHAGEAL VARICES WITHOUT BLEEDING Status: Chronic (13) Hepatorenal syndrome Code(s): K76.7 - HEPATORENAL SYNDROME Status: Acute (14) Normal anion gap metabolic acidosis Code(s): E87.2 - ACIDOSIS Status: Acute (15) Morbid obesity with BMI of 40.0-44.9, adult Code(s): E66.01 - MORBID (SEVERE) OBESITY DUE TO EXCESS CALORIES; Z68.41 - BODY MASS INDEX (BMI) 40.0-44.9, ADULT Status: Chronic - Plan cont current plan of care, plan discussed w/ family, continue antibiotics, social security assessor * today plan for HD * today plan for AVF * medication reviewed as below * symptomatic treatment * will need outpt HD arrangement. Review of Systems - Review of Systems ENT: negative: Ear Pain, Ear Discharge, Nose Pain, Nose Discharge, Nose Congestion, Mouth Pain, Mouth Swelling, Throat Pain, Throat Swelling, Other Respiratory: negative: Cough, Dry, Shortness of Breath, Hemoptysis, SOB with Excertion, Pleuritic Pain, Sputum, Wheezing Cardiovascular: negative: Chest Pain, Palpitations, Orthopnea, Paroxysmal Noc. Dyspnea, Edema, Light Headedness, Other Gastrointestinal: negative: Nausea, Vomiting, Abdominal Pain, Diarrhea, Constipation, Melena, Hematochezia, Other Genitourinary: negative: Dysuria, Frequency, Incontinence, Hematuria, Retention , Other Musculoskeletal: negative: Neck Pain, Shoulder Pain, Arm Pain, Back Pain, Hand Pain, Leg Pain, Foot Pain, Other Skin: negative: Rash, Lesions, [place], Bruising, Other - Medications/Allergies Allergies/Adverse Reactions: Allergies Allergy/AdvReac Type Severity Reaction Status Date / Time No Known Allergies Allergy Verified 08/11/17 12:14 Medications: Current Medications Albuterol/Ipratropium (Duoneb) 3 ml NEB [id number] [facility] Last Admin: 08/22/17 10:25 Dose: Not Given Albuterol/Ipratropium (Duoneb) 3 ml NEB [id number] PRN PRN Reason: SOB &/or Wheezing Cyanocobalamin (Vitamin B-12) 1,000 mcg PO DAILY [facility] Last Admin: 08/21/17 08:10 Dose: 1,000 mcg Ferrous Sulfate (Feosol) 325 mg PO QAM-WM [facility] Last Admin: 08/21/17 08:10 Dose: 325 mg Folic Acid (Folvite) 1 mg PO DAILY [facility] Last Admin: 08/21/17 08:11 Dose: 1 mg Ceftriaxone Sodium 1 gm/ (Syringe 0.4 ml/ Sterile Water) 10 mls @ 120 mls/hr SLOW IVP 1000 [facility] Last Admin: 08/21/17 08:52 Dose: 10 mls Iron/Minerals/Multivitamins (Theragran M) 1 tab PO DAILY [facility] Last Admin: 08/21/17 08:10 Dose: 1 tab Lactulose (Lactulose) 30 gm PO BID [facility] Last Admin: 08/21/17 21:15 Dose: 30 gm Methylprednisolone Sodium Succinate (Solu-Medrol) 20 mg IVP Q8HR [facility] Last Admin: 08/22/17 05:51 Dose: 20 mg Midodrine (Proamatine) 10 mg PO TID [facility] Last Admin: 08/21/17 21:15 Dose: 10 mg Mometasone Furoate/Formoterol Fumar (Dulera 200 Mcg/5 Mcg Inhaler) 2 puff INH BID-RT [facility] Last Admin: 08/22/17 07:25 Dose: 2 puff Ondansetron HCl (Zofran Odt) 4 mg PO Q6H PRN PRN Reason: Nausea/Vomiting Last Admin: 08/21/17 17:18 Dose: 4 mg Pantoprazole Sodium (Protonix) 40 mg IVP DAILY [facility] Last Admin: 08/21/17 08:10 Dose: 40 mg Sodium Bicarbonate (Bicarbonate, Sodium) 650 mg PO BID [facility] Last Admin: 08/21/17 21:14 Dose: 650 mg Sodium Chloride (Flush - Normal Saline) 10 ml IVF Q12HR [facility] Last Admin: 08/21/17 21:19 Dose: 10 ml Sodium Chloride (Flush - Normal Saline) 10 ml IVF PRN PRN PRN Reason: Saline Flush Last Admin: 08/14/17 23:37 Dose: 10 ml Thiamine HCl (Thiamine) 100 mg PO DAILY [facility] Last Admin: 08/21/17 08:10 Dose: 100 mg Tramadol HCl (Ultram) 50 mg PO Q12H PRN PRN Reason: Moderate Pain (4-6) Last Admin: 08/19/17 22:13 Dose: 50 mg
[2017-08-22] MEDS ORDERED: Ondansetron HCl/PF 4 MG/2 ML Vial IVP PRN (12:14)
--- NOTE | 2017-08-22 12:17 | OP ---
DATE OF PROCEDURE: 08/22/2017 PREOPERATIVE DIAGNOSES: End-stage renal disease, cirrhosis, morbid obesity, venous insufficiency. POSTOPERATIVE DIAGNOSES: End-stage renal disease, cirrhosis, morbid obesity, venous insufficiency. PROCEDURE PERFORMED: Right arm primary fistula, perforating branch antecubital vein to the proximal radial artery outflow basilic vein only with retrograde basilic vein preserved. Note, the patient wi ll need a basilic vein transposition fistula in the future. SURGEON: Dr. Ned Telles. ANESTHESIA: Regional TIVA. PROCEDURE IN DETAIL: Patient taken to the operating room where under intravenous sedation and region al anesthesia, right upper extremity was prepared with ChloraPrep, draped in routine fashion. Incisi on made in the antecubital fossa. Cephalic vein was too small to use. Cephalic vein; however, had w as connected to the basilic vein, which was of excellent caliber. A perforating branch to the basili c vein was of large caliber. It was dissected free down to the proximal radial artery and branches o f the basilic vein divided between clips and 4-0 silk ties and perforating branch to the basilic vein spatulated over a branch point and interrogated with coronary dilators, passing coronary dilators fr om a 2.5 to 4 mm coronary dilator out the basilic vein outflow without obstruction. The patient was given 5000 units of heparin intravenously. After adequate circulation time, the proximal radial jonathan ry was clamped proximally and distally with vascular clamps, longitudinal arteriotomy made sharply an d elongated with the Jackson scissors and end perforating branch of the basilic vein anastomosed to the proximal radial artery with continuous suture of 6-0 Prolene. The patient was given 50 mg of protam ine intravenously. Surgicel applied. Vascular clamp released and there was good flow out the basili c vein evident by Doppler interrogation. Hemostasis ensured. Subcutaneous tissues approximated with 3-0 Monocryl, skin with subdermal 4-0 Monocryl and DermaGlue applied.
[2017-08-22] MEDS ORDERED: Bupivacaine PF 0.5% 30 ML VIAL ONE (13:25)
[2017-08-22 14:11] LABS: Oxyhemoglobin 93.6 % (94.0-97.0); Sodium 142 mmol/L (135-148)
[2017-08-22 14:13] LABS: Modified Allen's Test POSITIVE; Vent NO
[2017-08-22] MEDS ORDERED: Protamine Sulfate 250 MG/25 ML VIAL ONE (14:18)
[2017-08-22] MEDS ORDERED: Propofol 200 MG/20 ML VIAL ONE (14:18)
[2017-08-22] MEDS ORDERED: Heparin 10,000 UNITS/ 10 ML VIAL ONE (14:18)
[2017-08-22] MEDS ORDERED: Lidocaine 1% PF 5 ML VIAL ONE (14:18)
[2017-08-22] MEDS: Ferrous Sulfate 325 MG TAB PO SCH (15:02)
[2017-08-22] MEDS: Folic Acid 1 MG TAB PO SCH (15:02)
[2017-08-22] MEDS: Cyanocobalamin (Vitamin B-12) 1,000 MCG TAB PO SCH (15:02)
[2017-08-22] MEDS: Pantoprazole 40 MG VIAL IVP SCH (15:03)
[2017-08-22] MEDS: Multivitamin W/ Minerals 1 TAB PO SCH (15:03)
[2017-08-22] MEDS: cefTRIAXone\\ROCEPHIN 1 GM, Syringe 0.4 ML in Sterile Water 9.6 ML SLOW IVP SCH (15:03)
[2017-08-22] MEDS: Midodrine HCl 5 MG TAB PO SCH ×3 (15:03→22:50)
[2017-08-22] MEDS: Sodium Bicarbonate Tab 325 MG TAB PO SCH ×2 (15:03→22:50)
[2017-08-22 17:38] LABS: I Time 0.85 sec; Mode NIPPV; Modified Allen's Test POSITIVE; Oxyhemoglobin 90.7 % (94.0-97.0); PIP 10 cmH2O; Sodium 141 mmol/L (135-148); Vent YES
--- NOTE | 2017-08-22 18:08 | PRG ---
DATE OF SERVICE: 08/22/2017 SUBJECTIVE: Kady Garcia underwent a tunnel catheter placement. She is transferred to the IMU an d placed on BiPAP. PH of 7.23 on blood gas. I have reviewed the chest radiograph which does not show change in elevatio n of her diaphragm (she had a regional block). She is starting dialysis at this time. OBJECTIVE: LUNGS: Clear anteriorly. HEART: Regular rhythm. ABDOMEN: Soft. She wakes up easily and nods that she was reasonably comfortable and getting enough air, but also say s she does not want to take her BiPAP off. IMPRESSION: 1. Metabolic acidosis, predominantly related to renal failure. 2. Small component of respiratory acidosis. 3. Cirrhosis. 4. End-stage renal disease. 5. Status post placement of a tunneled catheter. I will repeat a blood gas to document stability. Clinically, she looks stable at this time with her multiple medical problems. Her prognosis is quite poor.
--- NOTE | 2017-08-22 21:01 | RAD ---
CHEST ONE VIEW: History: Diaphragmatic injury. Comparison: 08-19-17 FINDINGS: Mild elevation of the right hemidiaphragm. Atelectasis is present in both lower lobes. Central venous catheter is present with tip in the inferior SVC. Cardiac silhouette is similar. No pneumothorax. IMPRESSION: 1. Lung hyperinflation with mild elevation of the right hemidiaphragm relative to the comparison exam ination. 2. Cardiomegaly with improving edema although there are still small effusions. POS: [facility]
[2017-08-23] MEDS: Mometasone/Formoterol 120 PUFF INHALER INH SCH ×2 (08:06→18:59)
[2017-08-23] MEDS: Folic Acid 1 MG TAB PO SCH (08:21)
[2017-08-23] MEDS: Ferrous Sulfate 325 MG TAB PO SCH (08:21)
--- NOTE | 2017-08-23 08:22 | PRG ---
DATE OF SERVICE: 08/23/2017 SUBJECTIVE: She says she is doing better today. OBJECTIVE: VITAL SIGNS: On exam, temperature is 97.9, pulse 81, respirations 18, O2 sat 99% on 2 liters. She i s off BiPAP, blood pressure 128/64. HEENT: Unremarkable. NECK: She has a tunneled right IJ catheter in place. She has a left IJ catheter in place. She has bruising throughout her neck and upper chest. LUNGS: Clear to auscultation. CARDIAC: S1 and S2 regular. ABDOMEN: Soft, nontender. EXTREMITIES: No edema. LABORATORY DATA: No new labs were obtained today. ASSESSMENT: 1. Acute renal failure. 2. Psoriasis. 3. End-stage renal disease. PLAN: Likely to have more dialysis today. Need to recheck labs tomorrow. Prognosis is very guarded .
[2017-08-23] MEDS: Midodrine HCl 5 MG TAB PO SCH ×3 (08:23→20:39)
[2017-08-23 08:56] LABS: #Lymphocytes 0.3 thou/uL (1.20-3.40); #Monocytes 0.3 thou/uL (0.11-0.59); #Neutrophils 5.5 thou/uL (1.40-6.50); %Basophils 0.7 % (0.0-1.0); %Eosinophils 0.5 % (0.0-10.0); %Lymphocytes 4.9 % (21.0-51.0); %Monocytes 5.4 % (0.0-10.0); Hematocrit 25.3 % (36.0-47.0); Mean Platelet Volume 9.1 fL (7.4-10.4); Red Blood Cell (RBC) Count 2.37 mill/uL (4.20-5.40); White Blood Cell (WBC) Count 6.2 thou/uL (4.8-10.8)
[2017-08-23 09:10] LABS: Anion Gap 17 mmol/L (10-20); BUN (Urea Nitrogen) 89 mg/dL (9.8-20.1); Calc. Creatinine Clearance 17 mL/min (70-130); Calcium 8.7 mg/dL (7.8-10.44); Carbon Dioxide 21 mmol/L (23-31); Chloride 106 mmol/L (98-107); Estimated GFR-MDRD 7
--- NOTE | 2017-08-23 10:41 | PDOC.PN ---
- Subjective Encounter Start Date: 08/23/17 Encounter Start Time: 08:40 yesterday after surgical procedure pt was kept in IMCU, she required bipap for hypoxic respiratory failure, today pt is getting HD, she is off bipapa and maintaining saturation with nasal canula - Objective Resuscitation Status: Resuscitation Status FULL:Full Resuscitation MAR Reviewed: Yes Vital Signs & Weight: Vital Signs (12 hours) Temp Pulse Resp BP BP Pulse Ox 08/23/17 08:06 99 08/23/17 08:04 71 18 99 08/23/17 07:42 97.9 F 72 20 128/64 100 08/23/17 04:00 97.9 F 70 16 107/46 L 99 08/23/17 02:41 99 08/23/17 00:07 97 08/23/17 00:00 96.6 F L 75 16 111/60 97 08/22/17 23:15 97 Weight Weight 253 lb 6.4 oz I&O: 08/22/17 08/23/17 08/24/17 06:59 06:59 06:59 Intake Total 240 1330 Output Total 1716 Balance 240 -386 Result Diagrams: 08/23/17 08:47 08/23/17 08:47 EKG Reviewed by me: Yes Phys Exam - Physical Examination Constitutional: NAD HEENT: PERRLA, moist MMs, sclera anicteric Neck: no JVD, supple central line, HD tunneled cath Respiratory: no wheezing, no rales, no rhonchi coarse sound+ Cardiovascular: RRR, no significant murmur, no rub Gastrointestinal: soft obesity+, ascites+ Musculoskeletal: pulses present, edema present Neurological: non-focal, normal sensation, moves all 4 limbs Psychiatric: normal affect, A&O x 3 Skin: normal turgor Deviation from normal: bruise at surgical site Dx/Plan (1) SONYA (acute kidney injury) Code(s): N17.9 - ACUTE KIDNEY FAILURE, UNSPECIFIED Status: Acute Comment: (2) Ascites Code(s): R18.8 - OTHER ASCITES Status: Acute Qualifiers: Ascites type: other type Qualified Code(s): R18.8 - Other ascites (3) Hepatic encephalopathy Code(s): K72.90 - HEPATIC FAILURE, UNSPECIFIED WITHOUT COMA Status: Acute Comment: (4) Hyponatremia Code(s): E87.1 - HYPO-OSMOLALITY AND HYPONATREMIA Status: Acute (5) Thrombocythemia Status: Acute (6) Chronic low back pain Code(s): M54.5 - LOW BACK PAIN; G89.29 - OTHER CHRONIC PAIN Status: Chronic (7) Hypertension Code(s): I10 - ESSENTIAL (PRIMARY) HYPERTENSION Status: Chronic Qualifiers: Hypertension type: essential hypertension Qualified Code(s): I10 - Essential (primary) hypertension (8) Macrocytic anemia Code(s): D53.9 - NUTRITIONAL ANEMIA, UNSPECIFIED Status: Chronic (9) Non-alcoholic micronodular cirrhosis of liver Code(s): K74.69 - OTHER CIRRHOSIS OF LIVER Status: Chronic (10) Osteoarthritis Code(s): M19.90 - UNSPECIFIED OSTEOARTHRITIS, UNSPECIFIED SITE Status: Chronic Qualifiers: Osteoarthritis location: multiple joints Osteoarthritis type: primary Qualified Code(s): M15.0 - Primary generalized (osteo)arthritis (11) Portal hypertension Code(s): K76.6 - PORTAL HYPERTENSION Status: Chronic (12) Varices, esophageal Code(s): I85.00 - ESOPHAGEAL VARICES WITHOUT BLEEDING Status: Chronic (13) Hepatorenal syndrome Code(s): K76.7 - HEPATORENAL SYNDROME Status: Acute (14) Normal anion gap metabolic acidosis Code(s): E87.2 - ACIDOSIS Status: Acute (15) Morbid obesity with BMI of 40.0-44.9, adult Code(s): E66.01 - MORBID (SEVERE) OBESITY DUE TO EXCESS CALORIES; Z68.41 - BODY MASS INDEX (BMI) 40.0-44.9, ADULT Status: Chronic (16) Acute respiratory failure with hypoxia Code(s): J96.01 - ACUTE RESPIRATORY FAILURE WITH HYPOXIA Status: Acute - Plan cont current plan of care, social media job titles, respiratory therapy * HD as per nephrology * DC Rocephin today * will monitor in imcu today closely * continue selected home meds * medication reviewed as below * symptomatic treatment. Review of Systems - Review of Systems Other: not reliable due to pt is exhausted and does not participate - Medications/Allergies Allergies/Adverse Reactions: Allergies Allergy/AdvReac Type Severity Reaction Status Date / Time No Known Allergies Allergy Verified 08/11/17 12:14 Medications: Current Medications Albuterol/Ipratropium (Duoneb) 3 ml NEB [id number] [facility] Last Admin: 08/23/17 08:04 Dose: 3 ml Albuterol/Ipratropium (Duoneb) 3 ml NEB [id number] PRN PRN Reason: SOB &/or Wheezing Cyanocobalamin (Vitamin B-12) 1,000 mcg PO DAILY [facility] Last Admin: 08/22/17 15:02 Dose: Not Given Epoetin Pacheco (Procrit) 7,500 units SC Q7D [facility] Ferrous Sulfate (Feosol) 325 mg PO QAM-[facility] Last Admin: 08/23/17 08:21 Dose: 325 mg Folic Acid (Folvite) 1 mg PO DAILY [facility] Last Admin: 08/23/17 08:21 Dose: 1 mg Ceftriaxone Sodium 1 gm/ (Syringe 0.4 ml/ Sterile Water) 10 mls @ 120 mls/hr SLOW IVP 1000 [facility] Last Admin: 08/22/17 15:03 Dose: Not Given Iron/Minerals/Multivitamins (Theragran M) 1 tab PO DAILY [facility] Last Admin: 08/22/17 15:03 Dose: Not Given Lactulose (Lactulose) 30 gm PO BID [facility] Last Admin: 08/23/17 08:23 Dose: Not Given Methylprednisolone Sodium Succinate (Solu-Medrol) 20 mg IVP Q8HR [facility] Last Admin: 08/23/17 05:55 Dose: 20 mg Midodrine (Proamatine) 10 mg PO TID [facility] Last Admin: 08/23/17 08:23 Dose: 10 mg Mometasone Furoate/Formoterol Fumar (Dulera 200 Mcg/5 Mcg Inhaler) 2 puff INH BID-RT [facility] Last Admin: 08/23/17 08:06 Dose: 2 puff Ondansetron HCl (Zofran Odt) 4 mg PO Q6H PRN PRN Reason: Nausea/Vomiting Last Admin: 08/21/17 17:18 Dose: 4 mg Pantoprazole Sodium (Protonix) 40 mg IVP DAILY [facility] Last Admin: 08/22/17 15:03 Dose: Not Given Sevelamer Carbonate (Renvela) 800 mg PO TID-[facility] Sodium Bicarbonate (Bicarbonate, Sodium) 650 mg PO BID [facility] Last Admin: 08/22/17 22:50 Dose: Not Given Sodium Chloride (Flush - Normal Saline) 10 ml IVF Q12HR [facility] Last Admin: 08/22/17 22:53 Dose: 10 ml Sodium Chloride (Flush - Normal Saline) 10 ml IVF PRN PRN PRN Reason: Saline Flush Last Admin: 08/14/17 23:37 Dose: 10 ml Thiamine HCl (Thiamine) 100 mg PO DAILY [facility] Last Admin: 08/22/17 15:03 Dose: Not Given Tramadol HCl (Ultram) 50 mg PO Q12H PRN PRN Reason: Moderate Pain (4-6) Last Admin: 08/19/17 22:13 Dose: 50 mg
--- NOTE | 2017-08-23 12:15 | PRG ---
DATE OF SERVICE: 08/23/2017 RENAL MEDICINE SUBJECTIVE: Ms. Garcia is a 72-year-old female with history of acute kidney injury/? chroni c renal failure. She also has significant stenosis. She underwent AV fistula placement. We have in itiated her on dialysis due to the worsening renal dysfunction. The etiology is unclear, although he patorenal syndrome was considered. The possibility of acute tubular necrosis also remains with this patient. We will plan for her to undergo another dialytic intervention for few hours with fluid removal as adam erated. She voices no new complaints. She is more awake. Yesterday, after the said surgery, her mentation w as decreased. She was temporarily placed on BiPAP. However, she has significant improvement with he r mentation and her respiratory status. No new complaints. No chest pain, shortness of breath. PHYSICAL EXAMINATION: VITAL SIGNS: Blood pressure is 128/64, heart rate 72, respiratory rate 20, temperature 97.9, pulse o x 100%. GENERAL: Noted to be awake, alert, comfortable, and not in overt distress. SKIN: Adequate turgor. HEENT: Slightly pale conjunctivae, anicteric sclerae. NECK: No neck mass, no carotid bruits, no JVD. CHEST: No deformities. LUNGS: Clear breath sounds. No wheezing, no crackles. HEART: Normal sinus rhythm. No murmur, no gallops, no rubs. ABDOMEN: Globular, soft, nontender. No masses. EXTREMITIES: Positive for edema. Please note she has ascites. MEDICATIONS: Medications of 08/23/2017 reviewed. LABORATORY DATA: Laboratories of 08/23/2017; white count 6.2, hemoglobin is 8. On 08/22/2017, sodiu m 141, potassium 5.5, chloride 108, carbon dioxide 21, BUN 98, creatinine 5.97, phosphorus 7.4. ASSESSMENT AND PLAN: 1. End-stage renal disease/acute renal failure/chronic renal failure - hemodialysis was initiated du e to the worsening renal dysfunction. The possibility of acute tubular necrosis versus hepatorenal s yndrome remains. We will do a 3-hour hemodialysis. Fluid removal only as tolerated. 2. Anemia. We will initiate Epogen 7500 units subcutaneously every week. 3. Hyperphosphatemia, Renvela 800 mg 1 tablet t.i.d. with meals. 4. Cirrhosis, supportive care. Currently, patient is not deemed to be a liver transplant candidate. Overall, prognosis remains guarded.
[2017-08-23] MEDS: cefTRIAXone\\ROCEPHIN 1 GM, Syringe 0.4 ML in Sterile Water 9.6 ML SLOW IVP SCH (13:32)
[2017-08-23] MEDS: Sevelamer Carbonate 800 MG TAB PO SCH ×2 (13:40→17:36)
[2017-08-23] MEDS: Sodium Bicarbonate Tab 325 MG TAB PO SCH ×2 (13:40→20:37)
[2017-08-23] MEDS: Cyanocobalamin (Vitamin B-12) 1,000 MCG TAB PO SCH (13:41)
[2017-08-23] MEDS: Multivitamin W/ Minerals 1 TAB PO SCH (13:41)
[2017-08-23] MEDS: Pantoprazole 40 MG VIAL IVP SCH (13:42)
--- NOTE | 2017-08-23 15:23 | PRG ---
DATE OF SERVICE: 08/23/2017 Ms. Garcia is doing well. She had right arm primary fistula, regional anesthesia suffering phrenic n erve palsy which has resolved, her respirations are normal now. From this standpoint, she can be tra nsferred to the floor. Patient's right arm fistula has a good thrill and bruit. Surgical wound look s good. The patient will need a basilic vein transposition in the future. Would recommend she exerc ise this arm. Continue dialysis. See me as an outpatient in 3-4 weeks at which time we will arrange this. We will allow her to dialyze and gain strength prior to undergoing this. I will see as moni ochoa in this hospitalization. Please call if needed, she should exercise the right arm and use it witho ut restraints.
[2017-08-23] MEDS: Epoetin (ESRD) 20,000 UNITS/ML SC SCH (18:14)
[2017-08-24 04:23] LABS: Anion Gap 16 mmol/L (10-20); BUN (Urea Nitrogen) 74 mg/dL (9.8-20.1); Calc. Creatinine Clearance 19 mL/min (70-130); Calcium 8.7 mg/dL (7.8-10.44); Carbon Dioxide 22 mmol/L (23-31); Chloride 106 mmol/L (98-107); Estimated GFR-MDRD 9
[2017-08-24 04:58] LABS: #Lymphocytes 0.3 thou/uL (1.20-3.40); #Monocytes 0.2 thou/uL (0.11-0.59); #Neutrophils 4.3 thou/uL (1.40-6.50); %Eosinophils 0.6 % (0.0-10.0); %Lymphocytes 5.5 % (21.0-51.0); %Monocytes 4.8 % (0.0-10.0); Hematocrit 24.4 % (36.0-47.0); Mean Platelet Volume 9.7 fL (7.4-10.4); Red Blood Cell (RBC) Count 2.31 mill/uL (4.20-5.40); White Blood Cell (WBC) Count 4.8 thou/uL (4.8-10.8)
[2017-08-24] MEDS: Mometasone/Formoterol 120 PUFF INHALER INH SCH ×2 (07:55→18:28)
--- NOTE | 2017-08-24 09:41 | PRG ---
DATE OF SERVICE: 08/24/2017 SUBJECTIVE: She is doing better. She has no shortness of breath. PHYSICAL EXAMINATION: VITAL SIGNS: Temperature 98.4, pulse 68, respirations 16, O2 sat 100%, blood pressure 105/47. HEENT: Unremarkable. NECK: No JVD. She has some bruising around her operative site. CHEST: Clear. CARDIAC: S1, S2 regular. ABDOMEN: Soft. EXTREMITIES: Trace edema. LABORATORY DATA: White blood cell count 4.8, hematocrit 24.4, platelet count 46. Sodium 139, potass ium 5.1, chloride 106, CO2 20, BUN 74, creatinine 4.9, glucose 98. ASSESSMENT: 1. Renal failure. 2. Respiratory failure, which is resolved. PLAN: From my standpoint, she can be transferred to the telemetry medical, appears to be no acute is sues other than continued dialysis.
--- NOTE | 2017-08-24 09:42 | PRG ---
DATE OF SERVICE: 08/24/2017. SUBJECTIVE: Ms. Garcia is a 72-year-old female who has cirrhosis and was initiated on dialy sis due to worsening renal dysfunction. She has undergone dialysis for the last few days and doing w ell. An AV fistula has been placed. This morning she reports she has no complains of chest pain or shortness of breath. PHYSICAL EXAMINATION: . VITAL SIGNS: Blood pressure was 105/47, heart rate 68, respiratory rate 16, temperature 98.4, pulse ox 97%. GENERAL: Noted to be awake, lethargic, not in overt distress. SKIN: Adequate turgor. HEENT: She has slightly pale conjunctivae, anicteric sclerae. NECK: No neck mass, no carotid bruits, no JVD. CHEST: No deformities. LUNGS: Clear breath sounds. No wheezing or crackles. HEART: Normal sinus rhythm. No murmur, no gallops or rubs. ABDOMEN: Globular, soft, nontender. Positive for ascites. EXTREMITIES: Trace edema. MEDICATIONS: 08/24/2017 - Reviewed. LABORATORY: 08/24/2017 - White count 4.8, hemoglobin 7.9, hematocrit 24.4, sodium 139, potassium 5. 1, chloride 106, carbon dioxide 22, BUN 74, creatinine 4.92. Calcium is 8.7. ASSESSMENT AND PLAN: 1. Cirrhosis, supportive care. Currently, not a liver transplant candidate. 2. Acute kidney injury/presumptive acute tubular necrosis. Continue hemodialysis regimen. Fluid re moval only as tolerated. 3. Anemia. The patient has been initiated on weekly Epogen.
--- NOTE | 2017-08-24 10:44 | PDOC.PN ---
- Subjective Encounter Start Date: 08/24/17 Encounter Start Time: 11:00 Subjective: Feels week. Thinking is much more clear. No more abdominal pain. - Objective Resuscitation Status: Resuscitation Status FULL:Full Resuscitation MAR Reviewed: Yes Vital Signs & Weight: Vital Signs (12 hours) Temp Pulse Resp BP Pulse Ox 08/24/17 08:00 98.4 F 68 16 97 08/24/17 07:57 99 08/24/17 07:55 68 16 97 08/24/17 04:00 97.8 F 77 17 105/47 L 97 08/24/17 02:45 75 16 94 L 08/23/17 23:30 98.4 F 75 18 98/44 L 94 L Weight Weight 249 lb 11.2 oz I&O: 08/23/17 08/24/17 08/25/17 06:59 06:59 06:59 Intake Total 1330 680 Output Total 1716 Balance -386 680 Result Diagrams: 08/24/17 03:43 08/24/17 03:43 Phys Exam - Physical Examination Constitutional: NAD HEENT: moist MMs Respiratory: no wheezing, no rales, no rhonchi some upper resp congestion sounds Cardiovascular: RRR, no significant murmur Gastrointestinal: soft, non-tender, positive bowel sounds distended Musculoskeletal: edema present 2+ pitting edema to bilateral LE Neurological: non-focal, moves all 4 limbs Psychiatric: normal affect, A&O x 3 Dx/Plan (1) SONYA (acute kidney injury) Code(s): N17.9 - ACUTE KIDNEY FAILURE, UNSPECIFIED Status: Acute Comment: Continuing on dialysis, AV fistula placed (2) Ascites Code(s): R18.8 - OTHER ASCITES Status: Acute Qualifiers: Ascites type: other type Qualified Code(s): R18.8 - Other ascites (3) Hepatic encephalopathy Code(s): K72.90 - HEPATIC FAILURE, UNSPECIFIED WITHOUT COMA Status: Acute Comment: (4) Hyponatremia Code(s): E87.1 - HYPO-OSMOLALITY AND HYPONATREMIA Status: Acute (5) Acute respiratory failure with hypoxia Code(s): J96.01 - ACUTE RESPIRATORY FAILURE WITH HYPOXIA Status: Resolved (6) Thrombocythemia Status: Chronic (7) Chronic low back pain Code(s): M54.5 - LOW BACK PAIN; G89.29 - OTHER CHRONIC PAIN Status: Chronic (8) Hypertension Code(s): I10 - ESSENTIAL (PRIMARY) HYPERTENSION Status: Chronic Qualifiers: Hypertension type: essential hypertension Qualified Code(s): I10 - Essential (primary) hypertension (9) Macrocytic anemia Code(s): D53.9 - NUTRITIONAL ANEMIA, UNSPECIFIED Status: Chronic (10) Morbid obesity with BMI of 40.0-44.9, adult Code(s): E66.01 - MORBID (SEVERE) OBESITY DUE TO EXCESS CALORIES; Z68.41 - BODY MASS INDEX (BMI) 40.0-44.9, ADULT Status: Chronic (11) Non-alcoholic micronodular cirrhosis of liver Code(s): K74.69 - OTHER CIRRHOSIS OF LIVER Status: Chronic (12) Portal hypertension Code(s): K76.6 - PORTAL HYPERTENSION Status: Chronic (13) Varices, esophageal Code(s): I85.00 - ESOPHAGEAL VARICES WITHOUT BLEEDING Status: Chronic - Plan cont current plan of care, PT/OT transfer to the floor * . - Discharge Day Encounter end time: 11:30
[2017-08-24] MEDS: Midodrine HCl 5 MG TAB PO SCH ×3 (11:09→22:01)
[2017-08-24] MEDS: Sodium Bicarbonate Tab 325 MG TAB PO SCH ×2 (11:09→20:32)
[2017-08-24] MEDS: Folic Acid 1 MG TAB PO SCH (11:09)
[2017-08-24] MEDS: Multivitamin W/ Minerals 1 TAB PO SCH (11:09)
[2017-08-24] MEDS: Cyanocobalamin (Vitamin B-12) 1,000 MCG TAB PO SCH (11:09)
[2017-08-24] MEDS: Ferrous Sulfate 325 MG TAB PO SCH (11:10)
[2017-08-24] MEDS: Pantoprazole 40 MG VIAL IVP SCH (11:10)
[2017-08-24] MEDS: Sevelamer Carbonate 800 MG TAB PO SCH ×3 (11:12→18:16)
[2017-08-25] MEDS: Mometasone/Formoterol 120 PUFF INHALER INH SCH ×2 (07:32→19:06)
--- NOTE | 2017-08-25 09:05 | PRG ---
DATE OF SERVICE: 08/25/2017 The patient is doing reasonably well. PHYSICAL EXAMINATION: VITAL SIGNS: Temperature 98.1, pulse 52, respirations 20, O2 saturations 98%, blood pressure 125/60. HEENT: Unremarkable. NECK: No JVD. LUNGS: Clear. CARDIAC: S1, S2 regular. ABDOMEN: Soft. EXTREMITIES: Trace edema. ASSESSMENT: 1. Chronic renal failure requiring hemodialysis. 2. Status post respiratory failure. PLAN: 1. The patient can be transferred out to the medical floor for continued care. 2. Will need placement at the time of discharge.
[2017-08-25] MEDS: Cyanocobalamin (Vitamin B-12) 1,000 MCG TAB PO SCH (09:28)
[2017-08-25] MEDS: Multivitamin W/ Minerals 1 TAB PO SCH (09:28)
[2017-08-25] MEDS: Ferrous Sulfate 325 MG TAB PO SCH (09:28)
--- NOTE | 2017-08-25 09:28 | PRG ---
DATE OF SERVICE: 08/25/2017 SUBJECTIVE: Ms. Garcia is a 72-year-old female with known history of cirrhosis, developed a cute kidney injury. Currently on maintenance hemodialysis. No evidence of renal recovery at the pre sent time, voices no new complaints. She is tolerating her hemodialysis regimen. The patient tells me she is feeling a little better. OBJECTIVE: VITAL SIGNS: Blood pressure is noted at 126/56, heart rate 72, respiratory rate 20, temperature 98.1 , and pulse ox 98%. GENERAL: Noted to be awake, alert, comfortable, not in distress, obese. SKIN: Adequate turgor. HEENT: Slightly pale conjunctivae, anicteric sclerae. NECK: No neck mass, no carotid bruits, no JVD. CHEST: No deformities. LUNGS: Clear breath sounds. No wheezing, no crackles. HEART: Normal sinus rhythm. No murmur, no gallops, no rubs. ABDOMEN: Globular, soft, nontender, no masses. Positive for bowel sounds. Positive for ascites. EXTREMITIES: Positive for edema. MEDICATIONS: 08/25/2017 - reviewed. LABORATORY DATA: On 08/24/2017 - Hemoglobin 7.9. Sodium 139, potassium 5.1, chloride 106, carbon di oxide 22, BUN 74, creatinine 4.92, and calcium 8.7. ASSESSEMENT AND PLAN: 1. Acute kidney injury - secondary to a presumed ischemic acute tubular necrosis. Continue hemodial ysis regimen. No evidence of renal recovery. We will plan for 3-1/2 hours today and placed her on T , , and Tuesday dialysis regimen. Again, fluid removal as tolerated. 2. Anemia - p.r.n. blood transfusion. The patient is maintained on Epogen on a weekly basis. 3. Cirrhosis. Continue supportive care. This patient is currently not a liver transplant candidate . 4. Hepatic encephalopathy, much improved. Continue p.r.n. lactulose. Overall, prognosis remains gu arded. I have made arrangements for outpatient hemodialysis with this patient.
[2017-08-25] MEDS: Folic Acid 1 MG TAB PO SCH (09:29)
[2017-08-25] MEDS: Midodrine HCl 5 MG TAB PO SCH ×3 (09:29→21:24)
[2017-08-25] MEDS: Pantoprazole 40 MG VIAL IVP SCH (09:29)
[2017-08-25] MEDS: Sevelamer Carbonate 800 MG TAB PO SCH ×3 (09:29→18:31)
[2017-08-25] MEDS: Sodium Bicarbonate Tab 325 MG TAB PO SCH ×2 (09:31→21:24)
[2017-08-25] MEDS ORDERED: Heparin 10,000 UNITS/ 10 ML VIAL ONE (10:00)
--- NOTE | 2017-08-25 10:21 | PDOC.PN ---
- Subjective Encounter Start Date: 08/25/17 Encounter Start Time: 10:45 Subjective: Patient feeling better this AM. Still weak but working with PT. -: Some mild chest congestion, no Incentive Spirometry yet this AM. -: Some diarrhea after 2 chocolate puddings this AM, but this is actually typical for her if she eats chocolate pudding. - Objective Resuscitation Status: Resuscitation Status FULL:Full Resuscitation MAR Reviewed: Yes Vital Signs & Weight: Vital Signs (12 hours) Temp Pulse Resp BP Pulse Ox 08/25/17 07:42 98.1 F 72 20 126/56 L 98 08/25/17 07:31 73 18 98 08/25/17 04:00 98.1 F 74 20 144/63 H 97 08/25/17 02:28 72 16 97 08/25/17 00:00 98.4 F 76 20 128/54 L 96 08/24/17 23:29 74 16 100 Weight Weight 244 lb 11.2 oz I&O: 08/24/17 08/25/17 08/26/17 06:59 06:59 06:59 Intake Total 680 770 Balance 680 770 Result Diagrams: 08/24/17 03:43 08/24/17 03:43 Phys Exam - Physical Examination Constitutional: NAD HEENT: moist MMs Respiratory: no wheezing scattered rare crackles Cardiovascular: RRR Gastrointestinal: soft, positive bowel sounds Neurological: non-focal, moves all 4 limbs Psychiatric: normal affect, A&O x 3 Dx/Plan (1) SONYA (acute kidney injury) Code(s): N17.9 - ACUTE KIDNEY FAILURE, UNSPECIFIED Status: Acute Comment: Continuing on dialysis, AV fistula placed (2) Ascites Code(s): R18.8 - OTHER ASCITES Status: Acute Qualifiers: Ascites type: other type Qualified Code(s): R18.8 - Other ascites (3) Hepatic encephalopathy Code(s): K72.90 - HEPATIC FAILURE, UNSPECIFIED WITHOUT COMA Status: Acute Comment: (4) Hyponatremia Code(s): E87.1 - HYPO-OSMOLALITY AND HYPONATREMIA Status: Acute (5) Acute respiratory failure with hypoxia Code(s): J96.01 - ACUTE RESPIRATORY FAILURE WITH HYPOXIA Status: Resolved (6) Thrombocythemia Status: Chronic (7) Chronic low back pain Code(s): M54.5 - LOW BACK PAIN; G89.29 - OTHER CHRONIC PAIN Status: Chronic (8) Hypertension Code(s): I10 - ESSENTIAL (PRIMARY) HYPERTENSION Status: Chronic Qualifiers: Hypertension type: essential hypertension Qualified Code(s): I10 - Essential (primary) hypertension (9) Macrocytic anemia Code(s): D53.9 - NUTRITIONAL ANEMIA, UNSPECIFIED Status: Chronic (10) Morbid obesity with BMI of 40.0-44.9, adult Code(s): E66.01 - MORBID (SEVERE) OBESITY DUE TO EXCESS CALORIES; Z68.41 - BODY MASS INDEX (BMI) 40.0-44.9, ADULT Status: Chronic (11) Non-alcoholic micronodular cirrhosis of liver Code(s): K74.69 - OTHER CIRRHOSIS OF LIVER Status: Chronic (12) Portal hypertension Code(s): K76.6 - PORTAL HYPERTENSION Status: Chronic (13) Varices, esophageal Code(s): I85.00 - ESOPHAGEAL VARICES WITHOUT BLEEDING Status: Chronic (14) Adrenal insufficiency Code(s): E27.40 - UNSPECIFIED ADRENOCORTICAL INSUFFICIENCY Status: Acute Comment: Relative, on stress dose steroids, will attempt to wean - Plan cont current plan of care, PT/OT SNF placement when stable for discharge * . - Discharge Day Encounter end time: 11:15
[2017-08-25] MEDS: traMADol HCl 50 MG TAB PO PRN (22:26)
[2017-08-26] MEDS ORDERED: Gabapentin 300 MG CAP PO SCH (00:15)
[2017-08-26 05:32] LABS: Band 1 % (5-11); Hematocrit 28.6 % (36.0-47.0); Mean Platelet Volume 9.2 fL (7.4-10.4); Metamyelocyte 1 % (0-0); Neutrophil 95 % (42-75); Red Blood Cell (RBC) Count 2.67 mill/uL (4.20-5.40); White Blood Cell (WBC) Count 8.5 thou/uL (4.8-10.8)
[2017-08-26 05:36] LABS: Anion Gap 14 mmol/L (10-20); BUN (Urea Nitrogen) 39 mg/dL (9.8-20.1); Calc. Creatinine Clearance 26 mL/min (70-130); Calcium 9.1 mg/dL (7.8-10.44); Carbon Dioxide 27 mmol/L (23-31); Chloride 100 mmol/L (98-107); Estimated GFR-MDRD 13
[2017-08-26] MEDS: Mometasone/Formoterol 120 PUFF INHALER INH SCH ×2 (06:11→19:40)
[2017-08-26] MEDS: Sevelamer Carbonate 800 MG TAB PO SCH ×3 (08:34→16:10)
[2017-08-26] MEDS: Sodium Bicarbonate Tab 325 MG TAB PO SCH ×2 (08:34→20:23)
[2017-08-26] MEDS: Cyanocobalamin (Vitamin B-12) 1,000 MCG TAB PO SCH (08:35)
[2017-08-26] MEDS: Ferrous Sulfate 325 MG TAB PO SCH (08:35)
[2017-08-26] MEDS: Multivitamin W/ Minerals 1 TAB PO SCH (08:35)
[2017-08-26] MEDS: Folic Acid 1 MG TAB PO SCH (08:35)
[2017-08-26] MEDS: Pantoprazole 40 MG VIAL IVP SCH (08:35)
[2017-08-26] MEDS: Midodrine HCl 5 MG TAB PO SCH ×3 (08:35→20:23)
--- NOTE | 2017-08-26 10:42 | PRG ---
DATE OF SERVICE: 08/26/2017. SUBJECTIVE: Ms. Garcia is a 72-year-old female who was admitted for cirrhosis. She also mixon d a paracentesis done previously. We are seeing this patient for acute kidney injury. Initially thi s was thought to have been hemodynamically mediated renal dysfunction. However, in spite of volume r epletion with cortisone crystalloids renal function worsened. She most likely has an acute tubular n ecrosis and she is undergoing maintenance hemodialysis. This morning she voices no chest pain or thais rtness of breath. However, complaints of abdominal fullness. This may indicate a possible paracente sis for her. PHYSICAL EXAMINATION: VITAL SIGNS: Blood pressure 133/81, heart rate 75, respiratory rate 18, temperature 98.7, pulse ox 9 6%. GENERAL: Awake, supine, obese, lethargic, not in overt distress. SKIN: Adequate turgor. HEENT: Slightly pale conjunctivae, icteric sclerae. NECK: No neck mass, no JVD. LUNGS: Clear breath sounds. No wheezing, no crackles. HEART: Normal sinus rhythm. No murmur, no gallops, no rubs. ABDOMEN: Globular, soft, nontender, no masses. Positive for bowel sounds. Positive for ascites. EXTREMITIES: Positive for edema. MEDICATIONS: 08/26/2017- Reviewed. LABORATORY: 08/26/2017 - White count 8.5, hemoglobin 8.9, sodium 137, potassium 4.2, chloride 100, c arbon dioxide 27, BUN 39, creatinine 3.53, glucose 92, calcium 9.1. ASSESSMENT AND PLAN: 1. Acute kidney injury - presumptive acute tubular necrosis. No evidence of renal recovery. Contin [facility] maintenance hemodialysis of Tuesday, , and Tuesday. Fluid removal only as tolerated. 2. Ascites, cirrhosis, supportive care. Currently a liver transplant candidate, p.r.n. paracentesis . 3. Anemia. Continuing weekly Epogen and p.r.n. blood transfusion. We are making arrangements for outpatient dialysis placement with this patient.
[2017-08-26] MEDS: Ondansetron ODT 4 MG TAB PO PRN ×2 (11:03→20:27)
[2017-08-26] MEDS: traMADol HCl 50 MG TAB PO PRN ×2 (11:18→22:58)
--- NOTE | 2017-08-26 14:29 | PDOC.PN ---
- Subjective Encounter Start Date: 08/26/17 Encounter Start Time: 11:30 Subjective: c/o lower abd pain, a bit nauseos -: responds to verbal stimuli -: is sitting on bed - Objective Resuscitation Status: Resuscitation Status FULL:Full Resuscitation MAR Reviewed: Yes Vital Signs & Weight: Vital Signs (12 hours) Temp Pulse Resp BP Pulse Ox 08/26/17 08:00 98.7 F 75 18 08/26/17 07:42 98.7 F 75 18 133/81 96 08/26/17 06:08 74 18 97 Weight Admit Weight 247 lb Weight 249 lb 1.6 oz I&O: 08/25/17 08/26/17 08/27/17 06:59 06:59 06:59 Intake Total 770 Balance 770 Result Diagrams: 08/26/17 05:00 08/26/17 05:00 Additional Labs: Accuchecks 08/25/17 19:51 POC Glucose 97 Phys Exam - Physical Examination HEENT: PERRLA, moist MMs icterus++ Neck: no JVD, supple Respiratory: no wheezing rales+ Cardiovascular: RRR, no significant murmur Gastrointestinal: soft, positive bowel sounds distention, abd wall edema in lower half, no rigidity/guarding Musculoskeletal: pulses present, edema present left LE edema more Neurological: non-focal, moves all 4 limbs Dx/Plan (1) Ascites Code(s): R18.8 - OTHER ASCITES Status: Acute Qualifiers: Ascites type: other type Qualified Code(s): R18.8 - Other ascites (2) Hepatic encephalopathy Code(s): K72.90 - HEPATIC FAILURE, UNSPECIFIED WITHOUT COMA Status: Resolved Comment: (3) Hepatorenal syndrome Code(s): K76.7 - HEPATORENAL SYNDROME Status: Acute Comment: initiated on HD (4) Macrocytic anemia Code(s): D53.9 - NUTRITIONAL ANEMIA, UNSPECIFIED Status: Chronic (5) Morbid obesity with BMI of 40.0-44.9, adult Code(s): E66.01 - MORBID (SEVERE) OBESITY DUE TO EXCESS CALORIES; Z68.41 - BODY MASS INDEX (BMI) 40.0-44.9, ADULT Status: Chronic (6) Non-alcoholic micronodular cirrhosis of liver Code(s): K74.69 - OTHER CIRRHOSIS OF LIVER Status: Chronic (7) Portal hypertension Code(s): K76.6 - PORTAL HYPERTENSION Status: Chronic (8) Thrombocythemia Status: Chronic (9) Varices, esophageal Code(s): I85.00 - ESOPHAGEAL VARICES WITHOUT BLEEDING Status: Chronic Qualifiers: Esophageal varices bleeding: without bleeding (10) Adrenal insufficiency Code(s): E27.40 - UNSPECIFIED ADRENOCORTICAL INSUFFICIENCY Status: Acute Comment: Relative, on stress dose steroids (11) Physical deconditioning Code(s): R53.81 - OTHER MALAISE Status: Acute - Plan for usg guided paracentesis today -: has multiple organ failures, code status revisited today, is full code but -: would not want to be on vent for long if she ends up on it, has POA -: on solumedrol for adr insuf likely due to being very sick on arrival -: will need outpt HD chair if its not set up so far * . PT to mobilize, dc plan based on PT eval Review of Systems - Medications/Allergies Allergies/Adverse Reactions: Allergies Allergy/AdvReac Type Severity Reaction Status Date / Time No Known Allergies Allergy Verified 08/11/17 12:14 Medications: Current Medications Albuterol/Ipratropium (Duoneb) 3 ml NEB [id number] PRN PRN Reason: SOB &/or Wheezing Albuterol/Ipratropium (Duoneb) 3 ml NEB [id number] [facility] Last Admin: 08/26/17 13:55 Dose: Not Given Cyanocobalamin (Vitamin B-12) 1,000 mcg PO DAILY [facility] Last Admin: 08/26/17 08:35 Dose: 1,000 mcg Epoetin Pacheco (Procrit) 7,500 units SC Q7D [facility] Last Admin: 08/23/17 18:14 Dose: 7,500 units Ferrous Sulfate (Feosol) 325 mg PO QAM-WM [facility] Last Admin: 08/26/17 08:35 Dose: 325 mg Folic Acid (Folvite) 1 mg PO DAILY [facility] Last Admin: 08/26/17 08:35 Dose: 1 mg Gabapentin (Neurontin) 300 mg PO HS [facility] Iron/Minerals/Multivitamins (Theragran M) 1 tab PO DAILY [facility] Last Admin: 08/26/17 08:35 Dose: 1 tab Lactulose (Lactulose) 30 gm PO BID [facility] Last Admin: 08/26/17 08:35 Dose: 30 gm Methylprednisolone Sodium Succinate (Solu-Medrol) 20 mg IVP Q8HR [facility] Last Admin: 08/26/17 14:00 Dose: 20 mg Midodrine (Proamatine) 10 mg PO TID [facility] Last Admin: 08/26/17 08:35 Dose: 10 mg Mometasone Furoate/Formoterol Fumar (Dulera 200 Mcg/5 Mcg Inhaler) 2 puff INH BID-RT [facility] Last Admin: 08/26/17 06:11 Dose: 2 puff Ondansetron HCl (Zofran Odt) 4 mg PO Q6H PRN PRN Reason: Nausea/Vomiting Last Admin: 08/26/17 11:03 Dose: 4 mg Pantoprazole Sodium (Protonix) 40 mg IVP DAILY [facility] Last Admin: 08/26/17 08:35 Dose: 40 mg Sevelamer Carbonate (Renvela) 800 mg PO TID-WM [facility] Last Admin: 08/26/17 11:40 Dose: Not Given Sodium Bicarbonate (Bicarbonate, Sodium) 650 mg PO BID [facility] Last Admin: 08/26/17 08:34 Dose: 650 mg Sodium Chloride (Flush - Normal Saline) 10 ml IVF Q12HR [facility] Last Admin: 08/26/17 08:48 Dose: 10 ml Sodium Chloride (Flush - Normal Saline) 10 ml IVF PRN PRN PRN Reason: Saline Flush Last Admin: 08/25/17 06:29 Dose: 10 ml Thiamine HCl (Thiamine) 100 mg PO DAILY [facility] Last Admin: 08/26/17 08:35 Dose: 100 mg Tramadol HCl (Ultram) 50 mg PO Q12H PRN PRN Reason: Moderate Pain (4-6) Last Admin: 08/26/17 11:18 Dose: 50 mg
--- NOTE | 2017-08-26 19:19 | ULT ---
SONOGRAPHIC GUIDED PARACENTESIS 08/26/17 HISTORY: Recurrent ascites. Dyspnea. FINDINGS: After explaining the procedure and answering all questions, sonographic survey of the abdomen show la rge amount of free fluid. Sterile technique, buffered local anesthesia, sonographic guidance, and an anterior right lower quadrant approach used to fully advance a 19 gauge Yueh needle and catheter into the free fluid. Catheter was left to drain a total of 7.0 liter dark yellow liquid. A portion of liq uid was seen to the laboratory for analysis if needed. Postprocedure imaging shows moderate amount of residual fluid. Patient tolerated the procedure well and was returned in improved condition. IMPRESSION: Technically successful sonographic guided paracentesis. POS: [facility]
[2017-08-26] MEDS: Gabapentin 300 MG CAP PO SCH (20:23)
[2017-08-27] MEDS ORDERED: Ondansetron HCl/PF 4 MG/2 ML Vial IVP PRN (00:04)
[2017-08-27] MEDS ORDERED: Promethazine HCl 25 MG in Sodium Chloride 0.9% 50 ML IVPB PRN (00:05)
[2017-08-27] MEDS ORDERED: Promethazine HCl 25 MG in Sodium Chloride 0.9% 100 ML IVPB PRN (00:30)
[2017-08-27] MEDS: Morphine 2 mg/2ml in 0.9% NaCl PF SYRINGE SLOW IVP PRN (00:38)
[2017-08-27] MEDS: Mometasone/Formoterol 120 PUFF INHALER INH SCH ×2 (06:22→19:10)
[2017-08-27] MEDS: Cyanocobalamin (Vitamin B-12) 1,000 MCG TAB PO SCH (08:20)
[2017-08-27] MEDS: Ferrous Sulfate 325 MG TAB PO SCH (08:20)
[2017-08-27] MEDS: Folic Acid 1 MG TAB PO SCH (08:20)
[2017-08-27] MEDS: Sodium Bicarbonate Tab 325 MG TAB PO SCH ×2 (08:20→19:33)
[2017-08-27] MEDS: Multivitamin W/ Minerals 1 TAB PO SCH (08:20)
[2017-08-27] MEDS: predniSONE 5 MG TAB PO SCH (08:20)
[2017-08-27] MEDS: Midodrine HCl 5 MG TAB PO SCH ×3 (08:20→19:33)
[2017-08-27] MEDS: Sevelamer Carbonate 800 MG TAB PO SCH ×3 (08:20→16:42)
--- NOTE | 2017-08-27 11:08 | PRG ---
DATE OF SERVICE: 08/27/2017 SUBJECTIVE: Ms. Garcia is a 72-year-old female with cirrhosis, was seen for her acute kidne y injury. She has been placed on maintenance hemodialysis. She is currently undergoing dialysis togabriela damon. I am at the bedside supervising her dialysis. Fluid removal is only to be tolerated. She remai ns lethargic. She denies any chest pain or shortness of breath. OBJECTIVE: VITAL SIGNS: Blood pressure is 122/68, heart rate 73, respiratory rate 16, temperature 97.6, pulse o x 92%. GENERAL: Noted to be awake, supine, obese, comfortable, not in distress. HEENT: Pinkish conjunctivae. Icteric sclerae. NECK: No neck mass, no carotid bruits, no JVD. CHEST: No deformities. LUNGS: Clear breath sounds. HEART: Normal sinus rhythm. No murmur, no gallops, no rubs. ABDOMEN: Globular, soft. Positive for ascites. EXTREMITIES: Positive for edema. MEDICATIONS: Of 08/27/2017 reviewed. LABORATORIES: On 08/26/2017, white count 8.5, hemoglobin 8.9. Sodium 137, potassium 4.2, chloride 1 00, carbon dioxide 27, BUN 39, creatinine 3.53, and calcium 9.1. ASSESSMENT AND PLAN: 1. Acute kidney injury/end-stage renal disease - undergoing hemodialysis. I placed this patient on maintenance hemodialysis 3 times a week. No evidence of renal recovery. Continue supportive care. 2. Anemia, continuing weekly Epogen - p.r.n. blood transfusion. 3. Cirrhosis, supportive care. Overall, prognosis remains guarded. Recheck basic metabolic panel a nd complete blood count in a.m.
--- NOTE | 2017-08-27 12:34 | PDOC.PN ---
- Subjective Encounter Start Date: 08/27/17 Encounter Start Time: 08:30 Subjective: getting dialysed now, no sob - Objective Resuscitation Status: Resuscitation Status FULL:Full Resuscitation MAR Reviewed: Yes Vital Signs & Weight: Vital Signs (12 hours) Temp Pulse Resp BP Pulse Ox 08/27/17 11:58 77 17 134/70 90 L 08/27/17 11:41 75 16 96 08/27/17 08:00 97.6 F 77 17 08/27/17 06:22 73 16 95 08/27/17 06:21 73 14 95 08/27/17 04:00 97.6 F 73 16 122/68 92 L Weight Admit Weight 247 lb Weight 216 lb 3 oz Result Diagrams: 08/26/17 05:00 08/26/17 05:00 Phys Exam - Physical Examination HEENT: PERRLA icterus++, dry mucosa Neck: no JVD, supple Respiratory: no wheezing, no rales Cardiovascular: RRR, no significant murmur Gastrointestinal: soft, non-tender, positive bowel sounds Musculoskeletal: pulses present, edema present Neurological: non-focal, moves all 4 limbs Dx/Plan (1) Ascites Code(s): R18.8 - OTHER ASCITES Status: Acute Qualifiers: Ascites type: other type Qualified Code(s): R18.8 - Other ascites Comment: s/p paracentesis of 7liters 08/26/2017 (2) Hepatic encephalopathy Code(s): K72.90 - HEPATIC FAILURE, UNSPECIFIED WITHOUT COMA Status: Resolved Comment: (3) Hepatorenal syndrome Code(s): K76.7 - HEPATORENAL SYNDROME Status: Acute Comment: initiated on HD (4) Macrocytic anemia Code(s): D53.9 - NUTRITIONAL ANEMIA, UNSPECIFIED Status: Chronic (5) Morbid obesity with BMI of 40.0-44.9, adult Code(s): E66.01 - MORBID (SEVERE) OBESITY DUE TO EXCESS CALORIES; Z68.41 - BODY MASS INDEX (BMI) 40.0-44.9, ADULT Status: Chronic (6) Non-alcoholic micronodular cirrhosis of liver Code(s): K74.69 - OTHER CIRRHOSIS OF LIVER Status: Chronic (7) Portal hypertension Code(s): K76.6 - PORTAL HYPERTENSION Status: Chronic (8) Thrombocythemia Status: Chronic (9) Varices, esophageal Code(s): I85.00 - ESOPHAGEAL VARICES WITHOUT BLEEDING Status: Chronic Qualifiers: Esophageal varices bleeding: without bleeding (10) Adrenal insufficiency Code(s): E27.40 - UNSPECIFIED ADRENOCORTICAL INSUFFICIENCY Status: Acute Comment: Relative, on stress dose steroids (11) Physical deconditioning Code(s): R53.81 - OTHER MALAISE Status: Acute - Plan watch for hypotension, alb inf prn sbp <80 -: is on lactulose 30g bid -: prednisone 5mg for relative adrenal insuf -: midodrine for press support with HD and paracentesis -: prognosis guarded with multiple organ failures, to amb as tolerated * . Review of Systems - Medications/Allergies Allergies/Adverse Reactions: Allergies Allergy/AdvReac Type Severity Reaction Status Date / Time No Known Allergies Allergy Verified 08/11/17 12:14 Medications: Current Medications Albuterol/Ipratropium (Duoneb) 3 ml NEB [id number] PRN PRN Reason: SOB &/or Wheezing Albuterol/Ipratropium (Duoneb) 3 ml NEB [id number] [facility] Last Admin: 08/27/17 11:41 Dose: 3 ml Cyanocobalamin (Vitamin B-12) 1,000 mcg PO DAILY [facility] Last Admin: 08/27/17 08:20 Dose: Not Given Epoetin Pacheco (Procrit) 7,500 units SC Q7D [facility] Last Admin: 08/23/17 18:14 Dose: 7,500 units Ferrous Sulfate (Feosol) 325 mg PO QAM-WM [facility] Last Admin: 08/27/17 08:20 Dose: Not Given Folic Acid (Folvite) 1 mg PO DAILY [facility] Last Admin: 08/27/17 08:20 Dose: Not Given Gabapentin (Neurontin) 300 mg PO HS [facility] Last Admin: 08/26/17 20:23 Dose: 300 mg Promethazine HCl 25 mg/ Sodium (Chloride) 101 mls @ 404 mls/hr IVPB Q6H PRN PRN Reason: Nausea Last Admin: 08/27/17 00:38 Dose: 101 mls Iron/Minerals/Multivitamins (Theragran M) 1 tab PO DAILY [facility] Last Admin: 08/27/17 08:20 Dose: Not Given Lactulose (Lactulose) 30 gm PO BID [facility] Last Admin: 08/27/17 08:20 Dose: Not Given Midodrine (Proamatine) 10 mg PO TID [facility] Last Admin: 08/27/17 08:20 Dose: Not Given Mometasone Furoate/Formoterol Fumar (Dulera 200 Mcg/5 Mcg Inhaler) 2 puff INH BID-RT [facility] Last Admin: 08/27/17 06:22 Dose: 2 puff Morphine Sulfate/Sodium Chloride (Morphine 0.9% Nacl Pf 2 Mg/2ml) 2 mg SLOW IVP Q8H PRN PRN Reason: Pain Last Admin: 08/27/17 00:38 Dose: 2 mg Ondansetron HCl (Zofran Odt) 4 mg PO Q6H PRN PRN Reason: Nausea/Vomiting Last Admin: 08/26/17 20:27 Dose: 4 mg Ondansetron HCl (Zofran) 4 mg IVP Q6H PRN PRN Reason: Nausea/Vomiting Pantoprazole Sodium (Protonix) 40 mg PO DAILY [facility] Last Admin: 08/27/17 08:20 Dose: Not Given Prednisone (Prednisone) 5 mg PO QAM-[facility] Last Admin: 08/27/17 08:20 Dose: Not Given Sevelamer Carbonate (Renvela) 800 mg PO TID-[facility] Last Admin: 08/27/17 08:20 Dose: Not Given Sodium Bicarbonate (Bicarbonate, Sodium) 650 mg PO BID [facility] Last Admin: 08/27/17 08:20 Dose: Not Given Sodium Chloride (Flush - Normal Saline) 10 ml IVF Q12HR [facility] Last Admin: 08/27/17 08:20 Dose: Not Given Sodium Chloride (Flush - Normal Saline) 10 ml IVF PRN PRN PRN Reason: Saline Flush Last Admin: 08/25/17 06:29 Dose: 10 ml Thiamine HCl (Thiamine) 100 mg PO DAILY [facility] Last Admin: 08/27/17 08:20 Dose: Not Given Tramadol HCl (Ultram) 50 mg PO Q12H PRN PRN Reason: Moderate Pain (4-6) Last Admin: 08/26/17 22:58 Dose: 50 mg
[2017-08-27] MEDS: Gabapentin 300 MG CAP PO SCH (19:33)
[2017-08-28 05:11] LABS: #Eosinphils 0.2 thou/uL (0.0-0.7); #Lymphocytes 0.5 thou/uL (1.20-3.40); #Monocytes 0.3 thou/uL (0.11-0.59); #Neutrophils 10.4 thou/uL (1.40-6.50); %Basophils 0.1 % (0.0-1.0); %Eosinophils 1.5 % (0.0-10.0); %Lymphocytes 4.4 % (21.0-51.0); %Monocytes 2.9 % (0.0-10.0); Hematocrit 27.6 % (36.0-47.0); Red Blood Cell (RBC) Count 2.53 mill/uL (4.20-5.40); White Blood Cell (WBC) Count 11.4 thou/uL (4.8-10.8)
[2017-08-28 05:26] LABS: Anion Gap 12 mmol/L (10-20); BUN (Urea Nitrogen) 35 mg/dL (9.8-20.1); Calc. Creatinine Clearance 23 mL/min (70-130); Calcium 8.1 mg/dL (7.8-10.44); Carbon Dioxide 29 mmol/L (23-31); Chloride 100 mmol/L (98-107); Estimated GFR-MDRD 13
[2017-08-28] MEDS: Mometasone/Formoterol 120 PUFF INHALER INH SCH ×2 (07:01→19:15)
[2017-08-28] MEDS: Sodium Bicarbonate Tab 325 MG TAB PO SCH ×2 (09:40→20:28)
[2017-08-28] MEDS: Ferrous Sulfate 325 MG TAB PO SCH (09:40)
[2017-08-28] MEDS: Sevelamer Carbonate 800 MG TAB PO SCH ×3 (09:40→17:59)
[2017-08-28] MEDS: predniSONE 5 MG TAB PO SCH (09:40)
[2017-08-28] MEDS: Cyanocobalamin (Vitamin B-12) 1,000 MCG TAB PO SCH (09:41)
[2017-08-28] MEDS: Folic Acid 1 MG TAB PO SCH (09:41)
[2017-08-28] MEDS: Multivitamin W/ Minerals 1 TAB PO SCH (09:41)
[2017-08-28] MEDS: Midodrine HCl 5 MG TAB PO SCH ×3 (09:41→20:28)
--- NOTE | 2017-08-28 13:12 | PDOC.PN ---
- Subjective Encounter Start Date: 08/28/17 Encounter Start Time: 09:55 Subjective: no abd dyscomfort, feels better - Objective Resuscitation Status: Resuscitation Status FULL:Full Resuscitation MAR Reviewed: Yes Vital Signs & Weight: Vital Signs (12 hours) Temp Pulse Resp BP Pulse Ox 08/28/17 12:08 98.2 F 75 20 106/60 97 08/28/17 11:42 100 08/28/17 09:47 96 08/28/17 08:35 99.0 F 80 20 121/66 96 08/28/17 08:00 99.0 F 80 20 08/28/17 07:02 76 14 08/28/17 04:00 97.6 F 77 16 120/78 93 L Weight Admit Weight 247 lb Weight 207 lb 2 oz I&O: 08/27/17 08/28/17 08/29/17 06:59 06:59 06:59 Intake Total 620 Balance 620 Result Diagrams: 08/28/17 04:51 08/28/17 04:51 Phys Exam - Physical Examination HEENT: PERRLA icterus++ Neck: no nodes, supple Respiratory: no wheezing, no rales Cardiovascular: RRR, no significant murmur Gastrointestinal: soft, positive bowel sounds ascites+, abd wall edema+ Musculoskeletal: pulses present, edema present Neurological: non-focal, moves all 4 limbs Dx/Plan (1) Ascites Code(s): R18.8 - OTHER ASCITES Status: Acute Qualifiers: Ascites type: other type Qualified Code(s): R18.8 - Other ascites Comment: s/p paracentesis of 7liters 08/26/2017 (2) Hepatic encephalopathy Code(s): K72.90 - HEPATIC FAILURE, UNSPECIFIED WITHOUT COMA Status: Resolved Comment: (3) Hepatorenal syndrome Code(s): K76.7 - HEPATORENAL SYNDROME Status: Acute Comment: initiated on HD (4) Macrocytic anemia Code(s): D53.9 - NUTRITIONAL ANEMIA, UNSPECIFIED Status: Chronic (5) Morbid obesity with BMI of 40.0-44.9, adult Code(s): E66.01 - MORBID (SEVERE) OBESITY DUE TO EXCESS CALORIES; Z68.41 - BODY MASS INDEX (BMI) 40.0-44.9, ADULT Status: Chronic (6) Non-alcoholic micronodular cirrhosis of liver Code(s): K74.69 - OTHER CIRRHOSIS OF LIVER Status: Chronic (7) Portal hypertension Code(s): K76.6 - PORTAL HYPERTENSION Status: Chronic (8) Thrombocythemia Status: Chronic (9) Varices, esophageal Code(s): I85.00 - ESOPHAGEAL VARICES WITHOUT BLEEDING Status: Chronic Qualifiers: Esophageal varices bleeding: without bleeding (10) Adrenal insufficiency Code(s): E27.40 - UNSPECIFIED ADRENOCORTICAL INSUFFICIENCY Status: Acute Comment: Relative, on stress dose steroids (11) Physical deconditioning Code(s): R53.81 - OTHER MALAISE Status: Acute - Plan rehab eval, needs to amb with PT -: will need outpt HD chair -: has lost total of around 40lbs so far this admission -: on prednisone taper -: senior living prognosis poor due to multiple organ failure * . Review of Systems - Medications/Allergies Allergies/Adverse Reactions: Allergies Allergy/AdvReac Type Severity Reaction Status Date / Time No Known Allergies Allergy Verified 08/11/17 12:14 Medications: Current Medications Albuterol/Ipratropium (Duoneb) 3 ml NEB [id number] PRN PRN Reason: SOB &/or Wheezing Albuterol/Ipratropium (Duoneb) 3 ml NEB QID [facility] Cyanocobalamin (Vitamin B-12) 1,000 mcg PO DAILY [facility] Last Admin: 08/28/17 09:41 Dose: 1,000 mcg Epoetin Pacheco (Procrit) 7,500 units SC Q7D [facility] Last Admin: 08/23/17 18:14 Dose: 7,500 units Ferrous Sulfate (Feosol) 325 mg PO QAM-WM [facility] Last Admin: 08/28/17 09:40 Dose: 325 mg Folic Acid (Folvite) 1 mg PO DAILY [facility] Last Admin: 08/28/17 09:41 Dose: 1 mg Gabapentin (Neurontin) 300 mg PO HS [facility] Last Admin: 08/27/17 19:33 Dose: 300 mg Promethazine HCl 25 mg/ Sodium (Chloride) 101 mls @ 404 mls/hr IVPB Q6H PRN PRN Reason: Nausea Last Admin: 08/27/17 00:38 Dose: 101 mls Iron/Minerals/Multivitamins (Theragran M) 1 tab PO DAILY [facility] Last Admin: 08/28/17 09:41 Dose: 1 tab Lactulose (Lactulose) 30 gm PO BID [facility] Last Admin: 08/28/17 09:42 Dose: 30 gm Midodrine (Proamatine) 10 mg PO TID [facility] Last Admin: 08/28/17 09:41 Dose: 10 mg Mometasone Furoate/Formoterol Fumar (Dulera 200 Mcg/5 Mcg Inhaler) 2 puff INH BID-RT [facility] Last Admin: 08/28/17 07:01 Dose: 2 puff Morphine Sulfate/Sodium Chloride (Morphine 0.9% Nacl Pf 2 Mg/2ml) 2 mg SLOW IVP Q8H PRN PRN Reason: Pain Last Admin: 08/27/17 00:38 Dose: 2 mg Ondansetron HCl (Zofran Odt) 4 mg PO Q6H PRN PRN Reason: Nausea/Vomiting Last Admin: 08/26/17 20:27 Dose: 4 mg Ondansetron HCl (Zofran) 4 mg IVP Q6H PRN PRN Reason: Nausea/Vomiting Pantoprazole Sodium (Protonix) 40 mg PO DAILY [facility] Last Admin: 08/28/17 09:41 Dose: 40 mg Prednisone (Prednisone) 5 mg PO QAM-[facility] Last Admin: 08/28/17 09:40 Dose: 5 mg Sevelamer Carbonate (Renvela) 800 mg PO TID-[facility] Last Admin: 08/28/17 09:40 Dose: 800 mg Sodium Bicarbonate (Bicarbonate, Sodium) 650 mg PO BID [facility] Last Admin: 08/28/17 09:40 Dose: 650 mg Sodium Chloride (Flush - Normal Saline) 10 ml IVF Q12HR [facility] Last Admin: 08/27/17 19:35 Dose: 10 ml Sodium Chloride (Flush - Normal Saline) 10 ml IVF PRN PRN PRN Reason: Saline Flush Last Admin: 08/25/17 06:29 Dose: 10 ml Thiamine HCl (Thiamine) 100 mg PO DAILY [facility] Last Admin: 08/28/17 09:41 Dose: 100 mg Tramadol HCl (Ultram) 50 mg PO Q12H PRN PRN Reason: Moderate Pain (4-6) Last Admin: 08/26/17 22:58 Dose: 50 mg
[2017-08-28] MEDS ORDERED: Heparin 10,000 UNITS/1 ML VIAL ONE (17:34)
[2017-08-28] MEDS: Gabapentin 300 MG CAP PO SCH (20:28)
[2017-08-29] MEDS: Mometasone/Formoterol 120 PUFF INHALER INH SCH ×2 (06:30→20:12)
[2017-08-29 06:42] LABS: ALT (SGPT) 20 U/L (8-55); AST (SGOT) 20 U/L (5-34); Alkaline Phosphatase 121 U/L (40-150); Anion Gap 11 mmol/L (10-20); BUN (Urea Nitrogen) 43 mg/dL (9.8-20.1); Bilirubin, Total 2.6 mg/dL (0.2-1.2); Calc. Creatinine Clearance 18 mL/min (70-130); Calcium 7.9 mg/dL (7.8-10.44); Carbon Dioxide 31 mmol/L (23-31); Chloride 100 mmol/L (98-107); Estimated GFR-MDRD 10; Globulin 2.4 g/dL (2.4-3.5); Protein, Total 5.1 g/dL (6.0-8.3)
[2017-08-29] MEDS: Sodium Bicarbonate Tab 325 MG TAB PO SCH ×2 (08:54→21:11)
[2017-08-29] MEDS: Midodrine HCl 5 MG TAB PO SCH ×3 (08:54→21:12)
[2017-08-29] MEDS: Cyanocobalamin (Vitamin B-12) 1,000 MCG TAB PO SCH (08:54)
[2017-08-29] MEDS: Multivitamin W/ Minerals 1 TAB PO SCH (08:54)
[2017-08-29] MEDS: Sevelamer Carbonate 800 MG TAB PO SCH ×3 (08:54→16:18)
[2017-08-29] MEDS: Folic Acid 1 MG TAB PO SCH (08:54)
[2017-08-29] MEDS: Ferrous Sulfate 325 MG TAB PO SCH (08:54)
[2017-08-29] MEDS: predniSONE 5 MG TAB PO SCH (08:54)
--- NOTE | 2017-08-29 11:47 | PDOC.PN ---
- Subjective Encounter Start Date: 08/29/17 Encounter Start Time: 11:15 Subjective: no sob, feeling better, has not ambulated or worked with PT yet - Objective Resuscitation Status: Resuscitation Status FULL:Full Resuscitation MAR Reviewed: Yes Vital Signs & Weight: Vital Signs (12 hours) Temp Pulse Resp BP Pulse Ox 08/29/17 10:27 76 16 96 08/29/17 08:37 97.9 F 76 20 130/74 94 L 08/29/17 08:00 97.9 F 76 20 08/29/17 06:28 71 14 97 Weight Admit Weight 247 lb Weight 208 lb 7.047 oz I&O: 08/28/17 08/29/17 08/30/17 06:59 06:59 06:59 Intake Total 620 240 Balance 620 240 Result Diagrams: 08/28/17 04:51 08/29/17 06:20 Phys Exam - Physical Examination HEENT: PERRLA, moist MMs Neck: no JVD, supple Respiratory: no wheezing, no rales Cardiovascular: RRR, no significant murmur Gastrointestinal: soft, non-tender, positive bowel sounds abd wall edema++ Musculoskeletal: pulses present, edema present Neurological: non-focal, moves all 4 limbs Dx/Plan (1) Ascites Code(s): R18.8 - OTHER ASCITES Status: Acute Qualifiers: Ascites type: other type Qualified Code(s): R18.8 - Other ascites Comment: s/p paracentesis of 7liters 08/26/2017 (2) Hepatic encephalopathy Code(s): K72.90 - HEPATIC FAILURE, UNSPECIFIED WITHOUT COMA Status: Resolved Comment: (3) Hepatorenal syndrome Code(s): K76.7 - HEPATORENAL SYNDROME Status: Acute Comment: initiated on HD (4) Macrocytic anemia Code(s): D53.9 - NUTRITIONAL ANEMIA, UNSPECIFIED Status: Chronic (5) Morbid obesity with BMI of 40.0-44.9, adult Code(s): E66.01 - MORBID (SEVERE) OBESITY DUE TO EXCESS CALORIES; Z68.41 - BODY MASS INDEX (BMI) 40.0-44.9, ADULT Status: Chronic (6) Non-alcoholic micronodular cirrhosis of liver Code(s): K74.69 - OTHER CIRRHOSIS OF LIVER Status: Chronic (7) Portal hypertension Code(s): K76.6 - PORTAL HYPERTENSION Status: Chronic (8) Thrombocythemia Status: Chronic (9) Varices, esophageal Code(s): I85.00 - ESOPHAGEAL VARICES WITHOUT BLEEDING Status: Chronic Qualifiers: Esophageal varices bleeding: without bleeding (10) Adrenal insufficiency Code(s): E27.40 - UNSPECIFIED ADRENOCORTICAL INSUFFICIENCY Status: Acute Comment: Relative, on stress dose steroids (11) Physical deconditioning Code(s): R53.81 - OTHER MALAISE Status: Acute - Plan await out pt HD chair, midodrine for press support -: Rehab/snf eval -: may dc if placement is ready -: encourage po intake, prednisone taper and dc in 4 days -: oral iron, folic acid, mvi, B12 and epogen weekly * . Review of Systems - Medications/Allergies Allergies/Adverse Reactions: Allergies Allergy/AdvReac Type Severity Reaction Status Date / Time No Known Allergies Allergy Verified 08/11/17 12:14 Medications: Current Medications Albuterol/Ipratropium (Duoneb) 3 ml NEB [id number] PRN PRN Reason: SOB &/or Wheezing Albuterol/Ipratropium (Duoneb) 3 ml NEB QID-RT [facility] Last Admin: 08/29/17 10:27 Dose: 3 ml Cyanocobalamin (Vitamin B-12) 1,000 mcg PO DAILY [facility] Last Admin: 08/29/17 08:54 Dose: 1,000 mcg Epoetin Pacheco (Procrit) 7,500 units SC Q7D [facility] Last Admin: 08/23/17 18:14 Dose: 7,500 units Ferrous Sulfate (Feosol) 325 mg PO QAM-WM [facility] Last Admin: 08/29/17 08:54 Dose: 325 mg Folic Acid (Folvite) 1 mg PO DAILY [facility] Last Admin: 08/29/17 08:54 Dose: 1 mg Gabapentin (Neurontin) 300 mg PO HS [facility] Last Admin: 08/28/17 20:28 Dose: 300 mg Promethazine HCl 25 mg/ Sodium (Chloride) 101 mls @ 404 mls/hr IVPB Q6H PRN PRN Reason: Nausea Last Admin: 08/27/17 00:38 Dose: 101 mls Iron/Minerals/Multivitamins (Theragran M) 1 tab PO DAILY [facility] Last Admin: 08/29/17 08:54 Dose: 1 tab Lactulose (Lactulose) 30 gm PO BID [facility] Last Admin: 08/29/17 08:55 Dose: 30 gm Midodrine (Proamatine) 10 mg PO TID [facility] Last Admin: 08/29/17 08:54 Dose: 10 mg Mometasone Furoate/Formoterol Fumar (Dulera 200 Mcg/5 Mcg Inhaler) 2 puff INH BID-RT [facility] Last Admin: 08/29/17 06:30 Dose: 2 puff Morphine Sulfate/Sodium Chloride (Morphine 0.9% Nacl Pf 2 Mg/2ml) 2 mg SLOW IVP Q8H PRN PRN Reason: Pain Last Admin: 08/27/17 00:38 Dose: 2 mg Ondansetron HCl (Zofran Odt) 4 mg PO Q6H PRN PRN Reason: Nausea/Vomiting Last Admin: 08/26/17 20:27 Dose: 4 mg Ondansetron HCl (Zofran) 4 mg IVP Q6H PRN PRN Reason: Nausea/Vomiting Pantoprazole Sodium (Protonix) 40 mg PO DAILY [facility] Last Admin: 08/29/17 08:54 Dose: 40 mg Prednisone (Prednisone) 5 mg PO QAM-[facility] Last Admin: 08/29/17 08:54 Dose: 5 mg Sevelamer Carbonate (Renvela) 800 mg PO TID-[facility] Last Admin: 08/29/17 08:54 Dose: 800 mg Sodium Bicarbonate (Bicarbonate, Sodium) 650 mg PO BID [facility] Last Admin: 08/29/17 08:54 Dose: 650 mg Sodium Chloride (Flush - Normal Saline) 10 ml IVF Q12HR [facility] Last Admin: 08/29/17 08:55 Dose: 10 ml Sodium Chloride (Flush - Normal Saline) 10 ml IVF PRN PRN PRN Reason: Saline Flush Last Admin: 08/25/17 06:29 Dose: 10 ml Thiamine HCl (Thiamine) 100 mg PO DAILY [facility] Last Admin: 08/29/17 08:54 Dose: 100 mg Tramadol HCl (Ultram) 50 mg PO Q12H PRN PRN Reason: Moderate Pain (4-6) Last Admin: 08/26/17 22:58 Dose: 50 mg
[2017-08-29] MEDS: Gabapentin 300 MG CAP PO SCH (21:12)
[2017-08-30 06:32] LABS: ALT (SGPT) 18 U/L (8-55); AST (SGOT) 21 U/L (5-34); Alkaline Phosphatase 132 U/L (40-150); Anion Gap 12 mmol/L (10-20); BUN (Urea Nitrogen) 54 mg/dL (9.8-20.1); Bilirubin, Total 3.1 mg/dL (0.2-1.2); Calc. Creatinine Clearance 15 mL/min (70-130); Calcium 8.1 mg/dL (7.8-10.44); Carbon Dioxide 30 mmol/L (23-31); Chloride 98 mmol/L (98-107); Estimated GFR-MDRD 8; Globulin 2.6 g/dL (2.4-3.5); Protein, Total 5.3 g/dL (6.0-8.3)
[2017-08-30] MEDS: Mometasone/Formoterol 120 PUFF INHALER INH SCH ×2 (06:58→19:56)
[2017-08-30] MEDS ORDERED: Heparin 10,000 UNITS/ 10 ML VIAL ONE (09:00)
--- NOTE | 2017-08-30 09:08 | PRG ---
DATE OF SERVICE: 08/30/2017 SUBJECTIVE: Ms. Garcia is a 72-year-old female with cirrhosis and acute kidney injury. She is being initiated for dialysis due to worsening renal dysfunction. Currently, at the bedside, supe rvising her dialysis. She is tolerating the said treatment. No other complaints. No chest pain, no shortness of breath. She does have abdominal fullness. OBJECTIVE: VITAL SIGNS: Blood pressure 136/71, heart rate 75, respiratory rate 16, temperature 98.5, pulse ox 9 6%. GENERAL: Noted to be awake, supine, comfortable, not in overt distress. SKIN: Adequate turgor. HEENT: Pinkish conjunctivae, anicteric sclerae. NECK: No neck mass, no carotid bruits, no JVD. CHEST: No deformities. LUNGS: Clear breath sounds. No wheezing, no crackles. HEART: Normal sinus rhythm. No murmur, no gallops, no rubs. ABDOMEN: Globular, soft. Positive for ascites. EXTREMITIES: Positive for edema. MEDICATIONS: Of 08/30/2017 was reviewed. LABORATORY DATA: Of 08/28/2007, hemoglobin 8.8. 08/30/2017, sodium 136, potassium 4.4, chloride 98, carbon dioxide 30, BUN 54, creatinine 5.13, calcium 8.1, AST 21, ALT 18, albumin 2.7. ASSESSMENT AND PLAN: 1. Acute kidney injury/end-stage renal disease, stable. We will continue 3 times a week hemodialysi s. Fluid removal only as tolerated. 2. Anemia. Continue weekly Epogen. 3. Cirrhosis, supportive care. Currently, not a liver transplant candidate. Awaiting outpatient di alysis placement.
--- NOTE | 2017-08-30 10:54 | PDOC.PN ---
- Subjective Encounter Start Date: 08/30/17 Encounter Start Time: 09:30 Subjective: no sob, is getting dialyzed - Objective Resuscitation Status: Resuscitation Status FULL:Full Resuscitation MAR Reviewed: Yes Vital Signs & Weight: Vital Signs (12 hours) Temp Pulse Resp BP Pulse Ox 08/30/17 06:40 98.5 F 75 16 08/30/17 04:00 98.5 F 75 16 136/71 96 08/30/17 00:00 97.9 F 79 18 139/79 92 L Weight Admit Weight 247 lb Weight 212 lb 1 oz I&O: 08/29/17 08/30/17 08/31/17 06:59 06:59 06:59 Intake Total 240 Balance 240 Result Diagrams: 08/28/17 04:51 08/30/17 05:43 Phys Exam - Physical Examination HEENT: PERRLA, moist MMs Neck: no JVD, supple Respiratory: no wheezing, no rales Cardiovascular: RRR, no significant murmur Gastrointestinal: soft, non-tender, positive bowel sounds abd wall edema++ Musculoskeletal: pulses present, edema present Neurological: non-focal, moves all 4 limbs Dx/Plan (1) Ascites Code(s): R18.8 - OTHER ASCITES Status: Acute Qualifiers: Ascites type: other type Qualified Code(s): R18.8 - Other ascites Comment: s/p paracentesis of 7liters 08/26/2017 (2) Hepatic encephalopathy Code(s): K72.90 - HEPATIC FAILURE, UNSPECIFIED WITHOUT COMA Status: Resolved Comment: (3) Hepatorenal syndrome Code(s): K76.7 - HEPATORENAL SYNDROME Status: Acute Comment: initiated on HD (4) Macrocytic anemia Code(s): D53.9 - NUTRITIONAL ANEMIA, UNSPECIFIED Status: Chronic (5) Morbid obesity with BMI of 40.0-44.9, adult Code(s): E66.01 - MORBID (SEVERE) OBESITY DUE TO EXCESS CALORIES; Z68.41 - BODY MASS INDEX (BMI) 40.0-44.9, ADULT Status: Chronic (6) Non-alcoholic micronodular cirrhosis of liver Code(s): K74.69 - OTHER CIRRHOSIS OF LIVER Status: Chronic (7) Portal hypertension Code(s): K76.6 - PORTAL HYPERTENSION Status: Chronic (8) Thrombocythemia Status: Chronic (9) Varices, esophageal Code(s): I85.00 - ESOPHAGEAL VARICES WITHOUT BLEEDING Status: Chronic Qualifiers: Esophageal varices bleeding: without bleeding (10) Adrenal insufficiency Code(s): E27.40 - UNSPECIFIED ADRENOCORTICAL INSUFFICIENCY Status: Acute Comment: Relative, on stress dose steroids (11) Physical deconditioning Code(s): R53.81 - OTHER MALAISE Status: Acute - Plan awaiting out pt HD chair and placement -: she was barely able to stand with max assist yesterday with PT -: is on midodrine for pressure support with HD -: nebs, lactulose, oral iron and prednisone -: may dc anytime when placement is ready * . Review of Systems - Medications/Allergies Allergies/Adverse Reactions: Allergies Allergy/AdvReac Type Severity Reaction Status Date / Time No Known Allergies Allergy Verified 08/11/17 12:14 Medications: Current Medications Albuterol/Ipratropium (Duoneb) 3 ml NEB Q1TO-IM PRN PRN Reason: SOB &/or Wheezing Albuterol/Ipratropium (Duoneb) 3 ml NEB QID-RT [facility] Last Admin: 08/30/17 10:18 Dose: Not Given Cyanocobalamin (Vitamin B-12) 1,000 mcg PO DAILY [facility] Last Admin: 08/29/17 08:54 Dose: 1,000 mcg Epoetin Pacheco (Procrit) 7,500 units SC Q7D [facility] Last Admin: 08/23/17 18:14 Dose: 7,500 units Ferrous Sulfate (Feosol) 325 mg PO QAM-WM [facility] Last Admin: 08/29/17 08:54 Dose: 325 mg Folic Acid (Folvite) 1 mg PO DAILY [facility] Last Admin: 08/29/17 08:54 Dose: 1 mg Gabapentin (Neurontin) 300 mg PO HS [facility] Last Admin: 08/29/17 21:12 Dose: 300 mg Promethazine HCl 25 mg/ Sodium (Chloride) 101 mls @ 404 mls/hr IVPB Q6H PRN PRN Reason: Nausea Last Admin: 08/27/17 00:38 Dose: 101 mls Iron/Minerals/Multivitamins (Theragran M) 1 tab PO DAILY [facility] Last Admin: 08/29/17 08:54 Dose: 1 tab Lactulose (Lactulose) 30 gm PO BID [facility] Last Admin: 08/29/17 21:12 Dose: 30 gm Midodrine (Proamatine) 10 mg PO TID [facility] Last Admin: 08/29/17 21:12 Dose: 10 mg Mometasone Furoate/Formoterol Fumar (Dulera 200 Mcg/5 Mcg Inhaler) 2 puff INH BID-RT [facility] Last Admin: 08/30/17 06:58 Dose: Not Given Morphine Sulfate/Sodium Chloride (Morphine 0.9% Nacl Pf 2 Mg/2ml) 2 mg SLOW IVP Q8H PRN PRN Reason: Pain Last Admin: 08/27/17 00:38 Dose: 2 mg Ondansetron HCl (Zofran Odt) 4 mg PO Q6H PRN PRN Reason: Nausea/Vomiting Last Admin: 08/26/17 20:27 Dose: 4 mg Ondansetron HCl (Zofran) 4 mg IVP Q6H PRN PRN Reason: Nausea/Vomiting Pantoprazole Sodium (Protonix) 40 mg PO DAILY [facility] Last Admin: 08/29/17 08:54 Dose: 40 mg Prednisone (Prednisone) 5 mg PO QAM-[facility] Last Admin: 08/29/17 08:54 Dose: 5 mg Sevelamer Carbonate (Renvela) 800 mg PO TID-[facility] Last Admin: 08/29/17 16:18 Dose: 800 mg Sodium Bicarbonate (Bicarbonate, Sodium) 650 mg PO BID [facility] Last Admin: 08/29/17 21:11 Dose: 650 mg Sodium Chloride (Flush - Normal Saline) 10 ml IVF Q12HR [facility] Last Admin: 08/29/17 21:13 Dose: 10 ml Sodium Chloride (Flush - Normal Saline) 10 ml IVF PRN PRN PRN Reason: Saline Flush Last Admin: 08/25/17 06:29 Dose: 10 ml Thiamine HCl (Thiamine) 100 mg PO DAILY [facility] Last Admin: 08/29/17 08:54 Dose: 100 mg
[2017-08-30 11:51] VITALS: BMI 36.3
[2017-08-30] MEDS: Sodium Bicarbonate Tab 325 MG TAB PO SCH ×2 (11:52→20:38)
[2017-08-30] MEDS: Multivitamin W/ Minerals 1 TAB PO SCH (11:52)
[2017-08-30] MEDS: predniSONE 5 MG TAB PO SCH (11:52)
[2017-08-30] MEDS: Folic Acid 1 MG TAB PO SCH (11:52)
[2017-08-30] MEDS: Sevelamer Carbonate 800 MG TAB PO SCH ×3 (11:53→15:12)
[2017-08-30] MEDS: Cyanocobalamin (Vitamin B-12) 1,000 MCG TAB PO SCH (11:53)
[2017-08-30] MEDS: Midodrine HCl 5 MG TAB PO SCH ×3 (11:53→20:38)
[2017-08-30] MEDS: Ferrous Sulfate 325 MG TAB PO SCH (11:54)
[2017-08-30] MEDS: Epoetin (ESRD) 20,000 UNITS/ML SC SCH (12:32)
[2017-08-30] MEDS: Morphine 2 mg/2ml in 0.9% NaCl PF SYRINGE SLOW IVP PRN (16:56)
[2017-08-30] MEDS ORDERED: Bisacodyl 10 MG SUPP PR SCH (19:15)
[2017-08-30] MEDS: Gabapentin 300 MG CAP PO SCH (20:38)
[2017-08-31] MEDS: Morphine 2 mg/2ml in 0.9% NaCl PF SYRINGE SLOW IVP PRN ×3 (00:27→17:19)
[2017-08-31] MEDS: Mometasone/Formoterol 120 PUFF INHALER INH SCH ×2 (08:17→19:43)
[2017-08-31] MEDS: Folic Acid 1 MG TAB PO SCH (08:25)
[2017-08-31] MEDS: Ferrous Sulfate 325 MG TAB PO SCH (08:25)
[2017-08-31] MEDS: Multivitamin W/ Minerals 1 TAB PO SCH (08:25)
[2017-08-31] MEDS: Sodium Bicarbonate Tab 325 MG TAB PO SCH ×2 (08:25→21:24)
[2017-08-31] MEDS: Midodrine HCl 5 MG TAB PO SCH ×3 (08:26→21:24)
[2017-08-31] MEDS: Sevelamer Carbonate 800 MG TAB PO SCH ×3 (08:26→18:23)
[2017-08-31] MEDS: Cyanocobalamin (Vitamin B-12) 1,000 MCG TAB PO SCH (08:27)
[2017-08-31 08:52] VITALS: BP 142/84
[2017-08-31] MEDS ORDERED: Nadolol 40 MG TAB PO SCH (09:00)
--- NOTE | 2017-08-31 12:20 | PDOC.PN ---
- Subjective Encounter Start Date: 08/31/17 Encounter Start Time: 08:50 Subjective: c/o abd pain, no nausea - Objective Resuscitation Status: Resuscitation Status FULL:Full Resuscitation MAR Reviewed: Yes Vital Signs & Weight: Vital Signs (12 hours) Temp Pulse Resp BP BP Pulse Ox 08/31/17 10:23 89 16 08/31/17 08:19 90 16 08/31/17 08:00 96.8 F L 90 16 142/84 H 88 L 08/31/17 04:00 97.9 F 100 16 123/65 99 Weight Admit Weight 247 lb Weight 211 lb 10.653 oz I&O: 08/30/17 08/31/17 09/01/17 06:59 06:59 06:59 Intake Total 240 680 Output Total 200 Balance 240 480 Result Diagrams: 08/28/17 04:51 08/30/17 05:43 Phys Exam - Physical Examination HEENT: PERRLA dry mucosa, icterus++ Neck: no nodes, supple Respiratory: no wheezing, no rhonchi Cardiovascular: RRR, no significant murmur Gastrointestinal: soft, positive bowel sounds epigastric tenderness, no rigidity or guarding, has abd wall edema++ Musculoskeletal: pulses present, edema present Neurological: non-focal, moves all 4 limbs Dx/Plan (1) Ascites Code(s): R18.8 - OTHER ASCITES Status: Acute Qualifiers: Ascites type: other type Qualified Code(s): R18.8 - Other ascites Comment: s/p paracentesis of 7liters 08/26/2017 (2) Hepatic encephalopathy Code(s): K72.90 - HEPATIC FAILURE, UNSPECIFIED WITHOUT COMA Status: Resolved Comment: (3) Hepatorenal syndrome Code(s): K76.7 - HEPATORENAL SYNDROME Status: Acute Comment: initiated on HD (4) Macrocytic anemia Code(s): D53.9 - NUTRITIONAL ANEMIA, UNSPECIFIED Status: Chronic (5) Morbid obesity with BMI of 40.0-44.9, adult Code(s): E66.01 - MORBID (SEVERE) OBESITY DUE TO EXCESS CALORIES; Z68.41 - BODY MASS INDEX (BMI) 40.0-44.9, ADULT Status: Chronic (6) Non-alcoholic micronodular cirrhosis of liver Code(s): K74.69 - OTHER CIRRHOSIS OF LIVER Status: Chronic (7) Portal hypertension Code(s): K76.6 - PORTAL HYPERTENSION Status: Chronic (8) Thrombocythemia Status: Chronic (9) Varices, esophageal Code(s): I85.00 - ESOPHAGEAL VARICES WITHOUT BLEEDING Status: Chronic Qualifiers: Esophageal varices bleeding: without bleeding (10) Adrenal insufficiency Code(s): E27.40 - UNSPECIFIED ADRENOCORTICAL INSUFFICIENCY Status: Acute Comment: Relative, on stress dose steroids (11) Physical deconditioning Code(s): R53.81 - OTHER MALAISE Status: Acute - Plan will likely need paracentesis again, is sob with abd pain -: spo2 is dropping to 90's on oxygen with leg elevation -: CT abd without contrast, no iv contrast, is nauseous not sure if she will d -: -rink, may reconsult GI -: d/w daughter at bedside, are aware of poor prognosis with organ failures an * . -d severe deconditioning with being hospitalized for nearly 18 days now. echo for lv function and prognosis continue placement search and may dc if abd pain resolves/paracentesis if massive ascites is evident on CT Had [address] of this month, plus another one 2 weeks prior i guess Review of Systems - Medications/Allergies Allergies/Adverse Reactions: Allergies Allergy/AdvReac Type Severity Reaction Status Date / Time No Known Allergies Allergy Verified 08/11/17 12:14 Medications: Current Medications Albuterol/Ipratropium (Duoneb) 3 ml NEB [id number] PRN PRN Reason: SOB &/or Wheezing Albuterol/Ipratropium (Duoneb) 3 ml NEB QID-RT RUBIN Last Admin: 08/31/17 10:23 Dose: 3 ml Cyanocobalamin (Vitamin B-12) 1,000 mcg PO DAILY RUBIN Last Admin: 08/31/17 08:27 Dose: 1,000 mcg Epoetin Pacheco (Procrit) 7,500 units SC Q7D RUBIN Last Admin: 08/30/17 12:32 Dose: 7,500 units Ferrous Sulfate (Feosol) 325 mg PO QAM-WM RUBIN Last Admin: 08/31/17 08:25 Dose: 325 mg Folic Acid (Folvite) 1 mg PO DAILY RUBIN Last Admin: 08/31/17 08:25 Dose: 1 mg Gabapentin (Neurontin) 300 mg PO HS [facility] Last Admin: 08/30/17 20:38 Dose: 300 mg Iron/Minerals/Multivitamins (Theragran M) 1 tab PO DAILY [facility] Last Admin: 08/31/17 08:25 Dose: 1 tab Lactulose (Lactulose) 30 gm PO 5XD [facility] Last Admin: 08/31/17 11:41 Dose: Not Given Midodrine (Proamatine) 10 mg PO TID [facility] Last Admin: 08/31/17 08:26 Dose: 10 mg Mometasone Furoate/Formoterol Fumar (Dulera 200 Mcg/5 Mcg Inhaler) 2 puff INH BID-RT [facility] Last Admin: 08/31/17 08:17 Dose: 2 puff Morphine Sulfate/Sodium Chloride (Morphine 0.9% Nacl Pf 2 Mg/2ml) 2 mg SLOW IVP Q8H PRN PRN Reason: Pain Last Admin: 08/31/17 10:11 Dose: 2 mg Nadolol (Corgard) 40 mg PO DAILY [facility] Last Admin: 08/31/17 08:26 Dose: 40 mg Ondansetron HCl (Zofran Odt) 4 mg PO Q6H PRN PRN Reason: Nausea/Vomiting Last Admin: 08/26/17 20:27 Dose: 4 mg Ondansetron HCl (Zofran) 4 mg IVP Q6H PRN PRN Reason: Nausea/Vomiting Last Admin: 08/30/17 16:46 Dose: 4 mg Pantoprazole Sodium (Protonix) 40 mg PO DAILY [facility] Last Admin: 08/31/17 08:26 Dose: 40 mg Sevelamer Carbonate (Renvela) 800 mg PO TID-WM [facility] Last Admin: 08/31/17 08:26 Dose: 800 mg Sodium Bicarbonate (Bicarbonate, Sodium) 650 mg PO BID [facility] Last Admin: 08/31/17 08:25 Dose: 650 mg Sodium Chloride (Flush - Normal Saline) 10 ml IVF Q12HR [facility] Last Admin: 08/31/17 08:27 Dose: 10 ml Sodium Chloride (Flush - Normal Saline) 10 ml IVF PRN PRN PRN Reason: Saline Flush Last Admin: 08/25/17 06:29 Dose: 10 ml Thiamine HCl (Thiamine) 100 mg PO DAILY [facility] Last Admin: 08/31/17 08:25 Dose: 100 mg
--- NOTE | 2017-08-31 14:39 | CT ---
CT OF THE ABDOMEN AND PELVIS WITHOUT IV CONTRAST: Indication: Increased abdominal pain with inability to drink. Comparison: CT abdomen and pelvis, 08-06-13. FINDINGS: There is airspace consolidation within the left lower lobe and right lower lobe, suspicious for pneum onia. There is a small left pleural effusion. There is moderate ascites. There is gas seen within the wall of the hepatic flexure of the colon and proximal transverse colon s uspicious for pneumotosis. A small amount of gas is seen within the mesentery in the right upper quad rant. No portal venous gas is grossly evidence. There is distention of loops of the ascending colon a nd transverse colon with air fluid levels suspicious for a colitis or diarrhea. There are enlarged lymph nodes within the angle hepatis region. One measuring 1.7 cm on image 20 of s eries 2. The cirrhotic morphology of the liver again seen. The spleen measures 13.2 cm. Unopacified kidneys re veal no evidence of hydronephrosis. Adrenal glands appear within normal limits. There is diffuse oste openia. No acute osseous abnormality is evident. IMPRESSION: 1. Findings of pneumotosis and pericolonic mesenteric gas involving the hepatic flexure and proximal transverse colon is suspicious for ischemic colitis. Surgical consultation is recommended. 2. Left lower lobe and right lower lobe pneumonia. Small left pleural effusion. 3. Moderate ascites. 4. Findings of portal hypertension. 5. Findings called to Dr. Wu at 1:30 p.m. on 08-31-17. POS: [facility]
--- NOTE | 2017-08-31 14:55 | PRG ---
DATE OF SERVICE: 08/31/2017 SUBJECTIVE: Kady Garcia is seen today at Dr. Wu's request. The patient has been in the hospital since 08/13/2017, she has not been out of bed. She has multiple medical problems including nonalcoholic liver failure with cirrhosis, uncontrollable ascites, coagulopathy, thrombocytopenia, s plenomegaly, end-stage renal disease, dialysis initiated this hospitalization and probable bilateral pneumonia with immobility not out of bed since admission. Dialysis had been initiated via dialysis c atheter I inserted, but I have not been able to remove any fluid as she becomes hypotensive with dial ysis. Palliative care has talked to the family and patient in the past has refused DNR, but today st ates that she wants DNR and does not want to suffer. She is not quite ready for hospice care. Famil y has talked to Father Selvin and I have told the family that if the patient needs an operation, she pr obably would not survive that and is a very poor candidate and I would not do an operation even if in dicated. Patient complains of abdominal pain. CAT scan noncontrast abdomen and pelvis today reveals changes of the transverse colon, hepatic flexure with pneumatosis. She complains of pain in her upp er abdomen, central abdomen, right upper quadrant, and she is tender in that area. CBC has not been obtained since 08/28/2017. At that time, her platelet count was 36,000, hemoglobin 8, white count 11 . OBJECTIVE: LUNGS: Diminished breath sounds, no wheezing. VITAL SIGNS: 89, 96.8 degrees. GENERAL: The patient seems to have labored respirations and some problems staying awake and has a co ugh. ABDOMEN: Distended, protuberant, positive fluid weight, tender with mild guarding upper abdomen. ASSESSMENT AND PLAN: CAT scan demonstrating a possible pneumatosis, thickened colon wall and small b owel, right colon, hepatic flexure, transverse colon. She has tenderness distribution, but also has cirrhosis, hepatomegaly, splenomegaly, ascites. CAT scan suggests pneumonia consistent with her immo bility and not out of bed since admission. Patient has labored breathing. With her multiple medical problems, liver failure, renal failure, pneumonia, and poor cardiac reserve and poor mobility and la ck of mobility, she is not a candidate for an operation. I have discussed with the family and the domo ritchie and patient desires DNR status. Family agrees. I have asked the patient and the family to con [facility] hospice. They are in the process of deciding this. Father Selvin has spoken with the family and encouraged them to visit [facility]. Patient's overall prognosis is poor. I d o not see any point consulting Gastroenterology, as I do not think there will be anything to offer. At this point, I would provide comfort measures and encourage continued discussions regarding hospice care. I will see the patient as needed. Please call if needed.
--- NOTE | 2017-08-31 16:24 | RAD ---
RADIOGRAPH CHEST 1 VIEW: Date: 08-31-17 Time: 2:43 p.m. HISTORY: 72-year-old female with pneumonia. COMPARISON: 08-22-17 FINDINGS: There is a new finding of complete silhouetting of the left hemidiaphragm by a large region of airspa ce densities throughout the left lower lobe. There is also involvement of the lingula and anterior se gment of the left upper lobe, demonstrated by silhouetting of the left cardiac border. Lung volumes a re again low. Again noted are the left internal jugular central venous catheter and the double lumen right internal jugular dialysis catheter. No philipp pulmonary edema or pneumothorax. No consolidation in the right lung. IMPRESSION: 1. New left lower lobe and anterior segment left upper lobe airspace densities: evidence for pneumoni a. 2. There may or may not be a left pleural effusion. KHUSHI POS: [facility]
[2017-08-31] MEDS ORDERED: Morphine 2 mg/2ml in 0.9% NaCl PF SYRINGE SLOW IVP PRN (16:45)
[2017-08-31] MEDS: Gabapentin 300 MG CAP PO SCH (21:24)
[2017-08-31 21:28] VITALS: TEMP 97.2
--- NOTE | 2017-09-01 13:44 | OP ---
DATE OF SURGERY: 08/19/2017 PREOPERATIVE DIAGNOSIS: End-stage renal disease, liver failure, in need of dialysis access and IV ac cess. POSTOPERATIVE DIAGNOSIS: End-stage renal disease, liver failure, in need of dialysis access and IV a ccess. PROCEDURE: Placement of right IJ cuffed tunneled dialysis catheter and left IJ central line, ultraso und and fluoroscopy used. SURGEON: Dr. Ned Telles. ANESTHESIA: IV sedation, local 0.25% Marcaine with epinephrine, 30 mL, mixed with 2% Xylocaine, 10 m L PROCEDURE IN DETAIL: The patient was taken to the operating room where under ultrasound guidance, ne ck and chest were prepared with ChloraPrep, draped in routine fashion. Local anesthetic infiltrated into skin and subcutaneous tissue about the operative site. Both right and left internal jugular vei ns were cannulated with trocar catheter and J-wire was threaded. Trocar catheter was removed. Skin was incised and enlarged sharply, right and left. Stab incision made over the right chest. Seldinge r technique used to place left internal jugular vein triple lumen catheter. It was secured with 3-0 nylon suture and Biopatch sterile dressing applied. On the right side, smaller and medium sized dila tors were placed over the J-wire into the internal jugular vein and removed. The tunneling device wa s used to tunnel a cuffed tunnel hemodialysis precurved angiodynamics catheter between the two incisi ons, placing the fabric cuff of this hemodialysis catheter beneath the skin exit site over the right chest and catheter secured with 2 interrupted sutures of 3-0 nylon. Biopatch applied. Dilator and p ull-away sheath placed over the J-wire in superior vena cava and dilator and J-wire removed. Cathete r placed with pull-away sheath and pull-away sheath removed. Fluoroscopically, lines were noted to b e in good position as the platysma approximated with 4-0 Monocryl, skin with subdermal 4-0 Monocryl a nd DermaGlue applied. Sterile dressings applied. Each ports of the catheter on the right and left w ere aspirated of blood and flushed with saline solution. On the right, at the hemodialysis catheter, each of the 2 ports, flushed with heparinized saline solution 1000 units of heparin per mL indicated volume of the port. Fluoroscopic images revealed good line placement.
--- NOTE | 2017-09-01 13:45 | DS ---
DATE OF : 08/31/2017 at 08:52 p.m. PRIMARY CAUSE OF : Multiple organ failures from 19 days, end-stage liver disease with massive ascites, cirrhosis, portal hypertension, hepatorenal syndrome with end-stage renal disease. Patient was initiated on hemodialysis on 08/19/2017. Secondary causes of include anemia, thrombocytopenia, severe physical deconditioning and esophageal varices. BRIEF COURSE DURING HOSPITALIZATION: Patient initially got admitted on with confusion, agitation, and altered mental state at home. She was suspected to have hepatic encephalopathy. She was placed on broad-spectrum antibiotics. The patient had paracentesis done 2 days prior to this admission and her creatinine was normal then. Her creatinine this admission went up to 2.45 and has been progressively going up. She was admitted to [facility] [place]. She has had consultations with Dr. Nazario for Nephrology, Dr. Torres for Pulmonology, and Dr. Kimo Spence for Gastroenterology. The patient's renal function slowly worsened and went into hepatorenal syndrome. She was initiated on hemodialysis on 08/20/2017. The patient had large volume paracentesis done one more time on the with removal of 7 liters. She has had progressive decline in her physical condition and was essentially bedbound all through her stay and had not made any progress with physical therapy. She had coagulopathy as well with INR 1.8. On , patient had intractable nausea and vomiting with abdominal pain and a CAT scan was done which revealed possible pneumatosis with pericolonic mesenteric gas along the hepatic flexure and proximal transverse colon suspicious for ischemic colitis. She was also found to have had bilateral lower lobe pneumonia with moderate ascites. The patient continued to decline physically with her saturations dropping. Dr. Telles and myself have had discussions with family and her children at bedside. In view of her overall poor prognosis and current destabilization on , family opted for comfort care. Around 8:52 pm on 08/31/2017 patient was pronounced . Her body will be released to family per hospital protocol. [facility]
--- NOTE | 2017-09-03 15:49 | EKG ---
Test Reason : Blood Pressure : / mmHG Vent. Rate : 063 BPM Atrial Rate : 063 BPM P-R Int : 168 ms QRS Dur : 092 ms QT Int : 454 ms P-R-T Axes : 029 -08 017 degrees QTc Int : 464 ms Normal sinus rhythm with sinus arrhythmia Cannot rule out Anterior infarct , age undetermined Abnormal ECG Confirmed by DIOMEDES KIRAN, RASTA ([id number]), editor [employer] journal AYSHA HIGH ([id number]) on 09/03/2017 3:49:07 PM Referred By: Confirmed By:RASTA HERCULES MD
== END 2017-08-31 20:52 | disposition expired | DRG 981 ==
LOC: ERS 05:33 → IMCU/EMU 13:06 → T4-A 08-15 11:57 → IMCU/EMU 08-22 15:33 → T4-A 08-25 14:57
PROVIDERS: ADMIT Internal Medicine; ATTEND Internal Medicine
PROC: 30233N1 Transfusion of Nonautologous Red Blood Cells into Peripheral Vein, Percutaneous Approach (ICD-10-PCS; 2017-08-15)
PROC: 02HV33Z Insertion of Infusion Device into Superior Vena Cava, Percutaneous Approach (ICD-10-PCS; 2017-08-19)
PROC: 5A1D70Z Performance of Urinary Filtration, Intermittent, Less than 6 Hours Per Day (ICD-10-PCS; 2017-08-20)
PROC: 031B0ZF Bypass Right Radial Artery to Lower Arm Vein, Open Approach (ICD-10-PCS; principal; 2017-08-22)
PROC: 0W9G3ZZ Drainage of Peritoneal Cavity, Percutaneous Approach (ICD-10-PCS; 2017-08-26)
DX: K72.90 Hepatic failure, unspecified without coma (principal); N17.0 Acute kidney failure with tubular necrosis; K76.7 Hepatorenal syndrome; J96.01 Acute respiratory failure with hypoxia; G93.41 Metabolic encephalopathy; J18.9 Pneumonia, unspecified organism; E87.2 Acidosis; N18.6 End stage renal disease; I85.00 Esophageal varices without bleeding; R18.8 Other ascites; I12.0 Hypertensive chronic kidney disease with stage 5 chronic kidney disease or end stage renal disease; N17.9 Acute kidney failure, unspecified; K76.6 Portal hypertension; E27.40 Unspecified adrenocortical insufficiency; E87.1 Hypo-osmolality and hyponatremia; I95.9 Hypotension, unspecified; K74.60 Unspecified cirrhosis of liver; E83.39 Other disorders of phosphorus metabolism; J44.9 Chronic obstructive pulmonary disease, unspecified; R16.1 Splenomegaly, not elsewhere classified; D47.3 Essential (hemorrhagic) thrombocythemia; K75.81 Nonalcoholic steatohepatitis (NASH); E86.0 Dehydration; E86.9 Volume depletion, unspecified; K81.9 Cholecystitis, unspecified; D53.9 Nutritional anemia, unspecified; G47.33 Obstructive sleep apnea (adult) (pediatric); I87.2 Venous insufficiency (chronic) (peripheral); M54.5 Low back pain; G89.29 Other chronic pain; E88.9 Metabolic disorder, unspecified; M15.0 Primary generalized (osteo)arthritis; R79.1 Abnormal coagulation profile; R53.81 Other malaise; Z68.36 Body mass index [BMI] 36.0-36.9, adult; Z87.891 Personal history of nicotine dependence; Z51.5 Encounter for palliative care; Z66 Do not resuscitate; Z99.2 Dependence on renal dialysis
CPT/HCPCS: 36415; 36416; 36430; 49083; 51701; 71010; 74176; 76001; 76770; 80048; 80053; 80069; 80202; 81003; 82140; 82533; 82550; 82553; 82570; 82805; 83690; 83735; 83880; 84100; 84157; 84300; 84484; 85025; 85060; 85610; 85730; 86704; 86706; 86803; 86850; 86900; 86901; 87040; 87070; 87086; 87205; 87340; 89051; 90935; 93005; 93010; 93970; 94640; 94660; 94760; 96361; 96374; A4216; A4353; C1752; C1769; C9113; G0257; G0365; G8978-GP-CK; G8978-GP-CM; G8979-GP-CI; G8987-GO-CM; G8988-GO-CJ; J0360; J0692; J0696; J1644; J1720; J1940; J2001; J2250; J2270; J2354; J2405; J2550; J2704; J2720; J2920; J3010; J3370; J3411; J7050; J7620; P9016; P9047; Q0162; Q4081; S0020; S0028